=== PATIENT | male | born 1925 | race Caucasian/White ===

== ENCOUNTER 2016-08-22 05:25 | Observation (INO) | payer OTHER ==
[~2016-08-22] VITALS: Ht 180.3 cm; Wt 85.0 kg
[2016-08-22] VITALS (12 sets, daily range): BP systolic 111–142; BP diastolic 71–79; PULSE 71–120; RESP 18–28; TEMP 96.8–98.1; O2SAT 92–98
[~2016-08-22 05:25] MED LIST: AZIT250T3 PO
[2016-08-22] MEDS ORDERED: SODIUM CHLORIDE 0.9% FLUSH 5 ML FLUSH IVF PRN (06:00)
[2016-08-22] MEDS ORDERED: methylPREDNISolone SOD SUCC 125 MG/2 ML VIAL IVP ONE (06:00)
[2016-08-22] MEDS: RESP: ALBUTEROL 2.5 MG/IPRATROPIUM 0.5 MG NEB (SCH) INH ×2 (06:03→06:04)
--- NOTE | 2016-08-22 06:28 | RADRPT ---
EXAM DATE/TIME: 08/22/2016 06:11 [place] COMPARISON: CHEST SINGLE AP, July 16, 2016, 22:13. INDICATIONS : Shortness of breath. MEDICAL HISTORY : Chronic obstructive pulmonary disease. Hiatal hernia. SURGICAL HISTORY : None. ENCOUNTER: Initial ACUITY: 1 day PAIN SCORE: 0/10 LOCATION: Bilateral chest FINDINGS: A single view of the chest demonstrates minimal left basilar subsegmental atelectasis. Lungs are hype rinflated. The cardiomediastinal contours are unremarkable. Osseous structures are intact. CONCLUSION: 1. Minimal left basilar subsegmental atelectasis. 2. Hyperinflation which can be seen with COPD. Sherif Simmons MD on August 22, 2016 at 6:26 Board Certified Radiologist. This report was verified electronically.
[2016-08-22 06:33] LABS: AUTOMATED NEUTROPHIL # 2.9 TH/MM3 (1.8-7.7); BASOPHIL # 0.1 TH/MM3 (0-0.2); BASOPHIL % 0.6 % (0.0-2.0); EOSINOPHIL # 0.3 TH/MM3 (0-0.4); EOSINOPHIL % 2.6 % (0.0-4.0); HEMATOCRIT 40.2 % (39.0-51.0); LYMPH % 62.3 % (9.0-44.0); LYMPHOCYTE # 6.5 TH/MM3 (1.0-4.8); MEAN CELL VOLUME 79.3 FL (80.0-100.0); MEAN CORPUSCULAR HGB CONC 32.8 % (32.0-36.0); MONO % 6.8 % (0.0-8.0); NEUT % 27.7 % (16.0-70.0); PLATELET COUNT 233 TH/MM3 (150-450); RED BLOOD COUNT 5.07 MIL/MM3 (4.50-5.90); WHITE BLOOD COUNT 10.4 TH/MM3 (4.0-11.0)
--- NOTE | 2016-08-22 06:41 | PD ---
HPI Chief Complaint: Respiratory Distress Time Seen by Provider: 05:35 Travel History International Travel<30 days: No Contact w/Intl Traveler<30days: No Traveled to known affect area: No History of Present Illness HPI The patient is 89 years old. He uses oxygen at home 24 7. He suffers with COPD. He has been coughing quite a bit lately occasionally with sputum. He denies fever. He reports using his nebulizers at home quite frequently as often as every 2-3 hours. Currently he is on oral prednisone. The nebulizers have been beneficial at home. He has had no chest pain. PFSH Past Medical History Hx Anticoagulant Therapy: Yes Arthritis: Yes (hands) Asthma: No Blood Disorders: No Anxiety: No Depression: Yes Heart Rhythm Problems: No Cancer: Yes (Skin cancer) Cardiovascular Problems: Yes High Cholesterol: Yes Chemotherapy: No Chest Pain: Yes Congestive Heart Failure: No COPD: Yes Cerebrovascular Accident: No Coronary Artery Disease: No Diabetes: No Diminished Hearing: No Endocrine: No Gastrointestinal Disorders: Yes (Hernia) GERD: No Genitourinary: No Headaches: Yes Hiatal Hernia: Yes Heparin Induced Thrombocytopen: No Hypertension: Yes Immune Disorder: No Implanted Vascular Access Dvce: Yes Kidney Stones: Yes (as a kid) Musculoskeletal: Yes (Right Knee surgeries ) Neurologic: No Psychiatric: Yes Reproductive: No Respiratory: Yes (copd) Immunizations Current: Yes Migraines: No Radiation Therapy: No Renal Failure: No Seizures: No Sickle Cell Disease: No Sleep Apnea: No Thyroid Disease: No Ulcer: Yes Tetanus Vaccination: < 5 Years Influenza Vaccination: No Past Surgical History Abdominal Surgery: Yes (removal of cyst) AICD: No Body Medical Devices: Penile implant Cardiac Surgery: No Ear Surgery: No Endocrine Surgery: No Eye Surgery: Yes Genitourinary Surgery: No Gynecologic Surgery: No Insulin Pump: No Joint Replacement: No Neurologic Surgery: No Oral Surgery: Yes Pacemaker: No Thoracic Surgery: No Tonsillectomy: Yes Other Surgery: Yes (Right knee, Penile implant) Social History Alcohol Use: Yes (1 BEER DAILY) Tobacco Use: No Substance Use: No Allergies-Medications (Allergen,Severity, Reaction): Coded Allergies: Bee Sting (Verified Allergy, Severe, Swelling, 08/22/16) Sulfa (Verified Allergy, Intermediate, HIVES, 08/22/16) Reported Meds & Prescriptions Reported Meds & Active Scripts Active Review of Systems Except as stated in HPI: all other systems reviewed are Neg Physical Exam Narrative GENERAL: 89-year-old male pleasant white dyspnea SKIN: Warm and dry. HEAD: Atraumatic. Normocephalic. EYES: Pupils equal and round. No scleral icterus. No injection or drainage. ENT: No nasal bleeding or discharge. Mucous membranes pink and moist. NECK: Trachea midline. No JVD. CARDIOVASCULAR: Regular rhythm. Tachycardia. RESPIRATORY: Tachypnea. Wheezing present bilaterally. GASTROINTESTINAL: Abdomen soft, non-tender, nondistended. Hepatic and splenic margins not palpable. MUSCULOSKELETAL: No obvious deformities. No clubbing. No cyanosis. No edema. NEUROLOGICAL: Awake and alert. No obvious cranial nerve deficits. Motor grossly within normal limits. Normal speech. PSYCHIATRIC: Appropriate mood and affect; insight and judgment normal. Data Data Last Documented VS Vital Signs Date Time Temp Pulse Resp B/P Pulse Ox O2 Delivery O2 Flow Rate FiO2 08/22/16 06:23 100 26 98 Nasal Cannula 3 08/22/16 05:34 98.1 139/79 Orders Electrocardiogram (08/22/16 ) Complete Blood Count With Diff (08/22/16 05:57) Basic Metabolic Panel (Bmp) (08/22/16 05:57) Iv Access Insert/Monitor (08/22/16 05:57) Electrocardiogram (08/22/16 05:57) Ecg Monitoring (08/22/16 05:57) Oximetry (08/22/16 05:57) Oxygen Administration (08/22/16 05:57) Chest, Single Ap (08/22/16 05:57) Sodium Chloride 0.9% Flush (Ns Flush) (08/22/16 06:00) Methylprednisolone So Succ Inj (Solumedr (08/22/16 06:00) Albuterol-Ipratropium Neb (Duoneb Neb) (08/22/16 06:00) Admit Order (Ed Use Only) (08/22/16 06:57) Methylprednisolone So Succ Inj (Solumedr (08/22/16 12:00) Guaifenesin Er (Mucinex Er) (08/22/16 09:00) Levofloxacin 750 Mg Premix Inj (Levaquin (08/22/16 07:00) Budeson-Formot 160-4.5 Mg Inh (Symbicort (08/22/16 09:00) Albuterol-Ipratropium Neb (Duoneb Neb) (08/22/16 08:00) Albuterol-Ipratropium Neb (Duoneb Neb) (08/22/16 07:00) Place In Observation (08/22/16 ) Vital Signs (Adult) Q4H (08/22/16 06:57) Sodium Chloride 0.9% Flush (Ns Flush) (08/22/16 07:00) Sodium Chloride 0.9% Flush (Ns Flush) (08/22/16 09:00) Activity Oob Ad Allegra (08/22/16 06:57) ^ Medical Billing Coordinator / Telemetry .CONTINUOUS (08/22/16 06:57) Diet Regular Basic (08/22/16 Breakfast) Ondansetron Inj (Zofran Inj) (08/22/16 07:00) Bisacodyl Supp (Dulcolax Supp) (08/22/16 07:00) Comprehensive Metabolic Panel (08/23/16 06:00) Complete Blood Count With Diff (08/23/16 06:00) Scd Bilateral/Knee High MAI.BID (08/22/16 06:57) Kade Bilateral/Knee High MAI.QSHIFT (08/22/16 06:57) Acetaminophen (Tylenol) (08/22/16 07:00) Labs Laboratory Tests Test 08/22/16 06:05 White Blood Count 10.4 TH/MM3 Red Blood Count 5.07 MIL/MM3 Hemoglobin 13.2 GM/DL Hematocrit 40.2 % Mean Corpuscular Volume 79.3 FL Mean Corpuscular Hemoglobin 26.0 PG Mean Corpuscular Hemoglobin 32.8 % Concent Red Cell Distribution Width 16.0 % Platelet Count 233 TH/MM3 Mean Platelet Volume 8.4 FL Neutrophils (%) (Auto) 27.7 % Lymphocytes (%) (Auto) 62.3 % Monocytes (%) (Auto) 6.8 % Eosinophils (%) (Auto) 2.6 % Basophils (%) (Auto) 0.6 % Neutrophils # (Auto) 2.9 TH/MM3 Lymphocytes # (Auto) 6.5 TH/MM3 Monocytes # (Auto) 0.7 TH/MM3 Eosinophils # (Auto) 0.3 TH/MM3 Basophils # (Auto) 0.1 TH/MM3 CBC Comment AUTO DIFF Sodium Level 142 MEQ/L Potassium Level 4.1 MEQ/L Chloride Level 105 MEQ/L Carbon Dioxide Level 29.4 MEQ/L Anion Gap 8 MEQ/L Blood Urea Nitrogen 18 MG/DL Creatinine 1.06 MG/DL Estimat Glomerular Filtration 66 ML/MIN Rate Random Glucose 106 MG/DL Calcium Level 8.5 MG/DL MDM Medical Decision Making Medical Screen Exam Complete: Yes Emergency Medical Condition: Yes Medical Record Reviewed: Yes Differential Diagnosis COPD exacerbation, pneumonia, anemia, kidney injury, hypoxia Narrative Course Patient has received 3 rounds of nebulized breathing treatments. He reports mild improvement. Pt will be admitted for oxygen and breathing treatments PRN. D /w Dr Gamez. CBC & BMP Diagram 08/22/16 06:05 CXR: ? Left base atelectasis Diagnosis Primary Impression: COPD (chronic obstructive pulmonary disease) Qualified Code: J44.9 - Chronic obstructive pulmonary disease, unspecified COPD type Additional Impression: Acute on chronic respiratory failure Qualified Code: J96.21 - Acute on chronic respiratory failure with hypoxia Admitting Information Admitting Physician Requests: Observation Jac Alcazar MD Aug 22, 2016 06:41
[2016-08-22 06:45] LABS: HEMO FLAGS AUTO DIFF
[2016-08-22 06:58] LABS: BICARBONATE 29.4 MEQ/L (21.0-32.0); POTASSIUM 4.1 MEQ/L (3.5-5.1)
[2016-08-22] MEDS ORDERED: RESP: ALBUTEROL 2.5 MG/IPRATROPIUM 0.5 MG NEB (PRN) NEB (07:00)
[2016-08-22] MEDS ORDERED: ACETAMINOPHEN 325 MG TAB PO PRN (07:00)
[2016-08-22] MEDS ORDERED: BISACODYL 10 MG SUPP PR PRN (07:00)
[2016-08-22] MEDS ORDERED: SODIUM CHLORIDE 0.9% FLUSH 5 ML FLUSH FLUSH PRN (07:00)
[2016-08-22] MEDS ORDERED: ONDANSETRON HCL 4 MG/2 ML VIAL IVP PRN (07:00)
[2016-08-22 07:38] LABS: NEUTROPHIL # MANUAL DIFF 3.2 TH/MM3 (1.8-7.7); POLYS (SEG NEUTROPHILS) 31 % (16-70); WBC DIFF SAMPLE 100
[2016-08-22 07:40] LABS: PLATELET ESTIMATE SMEAR NORMAL (NORMAL); PLATELET MORPHOLOGY NORMAL (NORMAL)
[2016-08-22 07:41] LABS: SCAN/DIFF FINAL DIFF MANUAL
[2016-08-22] MEDS: LEVOFLOXACIN 750 MG PREMIX INJ 150 ML IV SCH (07:42)
[2016-08-22] MEDS: RESP: ALBUTEROL 2.5 MG/IPRATROPIUM 0.5 MG NEB (SCH) NEB ×4 (07:49→19:47)
[2016-08-22] MEDS: SODIUM CHLORIDE 0.9% FLUSH 5 ML FLUSH FLUSH SCH ×2 (10:03→20:35)
[2016-08-22] MEDS: guaiFENesin E.R. 600 MG TAB PO SCH ×2 (10:04→20:35)
[2016-08-22] MEDS: BUDESONIDE-FORMOTEROL 160/4.5 MCG INHALER INH SCH ×2 (10:04→20:35)
--- NOTE | 2016-08-22 11:18 | HHI.HP ---
[facility] Service [facility] Primary Care Physician [facility] Admission Diagnosis COPD Exacerbation, Hypoxia Diagnoses: Chief Complaint: shortness of breath Travel History International Travel<30 Days: No Contact w/Intl Traveler <30 Da: No Traveled to Known Affected Are: No History of Present Illness 89-year-old male with history of COPD, chronic respiratory failure, O2 dependent on 2L NC, HTN, HLD, presents after acute onset of shortness of breath this morning around 3 AM. Patient states he has been in his normal state of health, has a chronic cough occasionally productive of white sputum which is normal for him. Denies any fevers or chills. He states he woke up early this morning at 3 AM and was not able to breathe or catch his breath. Denies any chest pain. He states he has been taking prednisone daily for "a long time". He has been using nebulizers at home frequently. Denies any recent travel, leg pain or swelling. Since his arrival to the ER, he has been given duonebs, IV solu-medrol 125mg, and IV Levaquin. He states he feels better but not ready to go home. Review of Systems Constitutional: DENIES: Diaphoretic episodes, Fever, Chills, Dizziness Endocrine: DENIES: Polydipsia, Polyuria, Polyphagia Eyes: DENIES: Eye pain, Vision loss, Double Vision Ears, nose, mouth, throat: DENIES: Throat pain, Hoarseness, Running Nose, Odynophagia Respiratory: COMPLAINS OF: Cough, Wheezing, Sputum production, Shortness of breath Cardiovascular: DENIES: Chest pain, Dyspnea on Exertion, Lower Extremity Edema Gastrointestinal: DENIES: Abdominal pain, Diarrhea, Nausea, Vomiting Genitourinary: DENIES: Urinary frequency, Urgency, Dysuria Musculoskeletal: DENIES: Back pain, Neck pain Integumentary: DENIES: Pruritus, Rash Hematologic/lymphatic: DENIES: Bruising, Lymphadenopathy Immunologic/allergic: DENIES: Eczema, Urticaria Neurologic: DENIES: Abnormal gait, Headache, Localized weakness Psychiatric: DENIES: Anxiety, Depression Past Family Social History Past Medical History COPD, O2 dependent on 2L NC Anxiety HLD HTN Umbilical Hernia Diastasis Recti Past Surgical History Penile Implant Tonsillectomy Right knee surgery Abdominal cyst removal Reported Medications Asked RN to update med list Allergies: Coded Allergies: Bee Sting (Verified Allergy, Severe, Swelling, 08/22/16) Sulfa (Verified Allergy, Intermediate, HIVES, 08/22/16) Active Ordered Medications Current Medications Medications (Trade) Dose Ordered Sig/Jeison Route Start Time Stop Time Status Last Admin (NS Flush) 2 ml UNSCH PRN IVF 08/22/16 06:00 (SoluMEDROL INJ) 40 mg Q6HR IV PUSH 08/22/16 12:00 Guaifenesin 600 mg 600 mg BID PO 08/22/16 09:00 08/22/16 10:04 (Levaquin 750 Mg Premix Inj) 150 ml @ 100 mls/hr Q24H IV 08/22/16 07:00 08/22/16 07:42 (Symbicort 160-4.5 Inh) 2 puff Q12HR INH 08/22/16 09:00 08/22/16 10:04 (NS Flush) 2 ml UNSCH PRN FLUSH 08/22/16 07:00 (NS Flush) 2 ml BID FLUSH 08/22/16 09:00 08/22/16 10:03 (Zofran Inj) 4 mg Q6H PRN IVP 08/22/16 07:00 (Dulcolax Supp) 10 mg DAILY PRN DE 08/22/16 07:00 (Tylenol) 650 mg Q6H PRN PO 08/22/16 07:00 Family History Reviewed with the patient, denies any significant family history Social History Smoke tobacco 1 PPD from age 18 to around age 61 (quit 30 years ago) Very rare alcohol use, maybe 1 beer every few weeks Denies any illicit drug use Joao is his caregiver, lives with 3 other people in the home Physical Exam Vital Signs Vital Signs Date Time Temp Pulse Resp B/P Pulse Ox O2 Delivery O2 Flow Rate FiO2 08/22/16 06:23 100 26 98 Nasal Cannula 3 08/22/16 06:14 94 Nasal Cannula 3 08/22/16 06:14 28 08/22/16 05:37 101 28 93 Nasal Cannula 3 08/22/16 05:34 98.1 101 28 139/79 92 Physical Exam GENERAL: Well-nourished, well-developed pleasant elderly male patient in [facility]. SKIN: Warm and dry. No rash. HEAD: Normocephalic. Atraumatic. EYES: Pupils equal and round. No scleral icterus. No injection or drainage. ENT: No nasal bleeding or discharge. Mucous membranes pink and moist. NECK: Supple. Trachea midline. CARDIOVASCULAR: Regular rate and rhythm. S1, S2 noted. No murmur appreciated. RESPIRATORY: No accessory muscle use. Dry crackles at bilateral bases, otherwise clear to auscultation. Breath sounds equal bilaterally. GASTROINTESTINAL: Abdomen soft, non-tender, nondistended. Normoactive bowel sounds x4. +Diastasis recti. Small umbilical hernia, reducible. MUSCULOSKELETAL: No obvious deformities. Extremities without clubbing, cyanosis , or edema. NEUROLOGICAL: Awake and alert. No obvious cranial nerve deficits. Motor grossly within normal limits. Normal speech. PSYCHIATRIC: Appropriate mood and affect; insight and judgment normal. Laboratory Laboratory Tests Test 08/22/16 06:05 White Blood Count 10.4 Red Blood Count 5.07 Hemoglobin 13.2 Hematocrit 40.2 Mean Corpuscular Volume 79.3 Mean Corpuscular Hemoglobin 26.0 Mean Corpuscular Hemoglobin 32.8 Concent Red Cell Distribution Width 16.0 Platelet Count 233 Mean Platelet Volume 8.4 Neutrophils (%) (Auto) 27.7 Lymphocytes (%) (Auto) 62.3 Monocytes (%) (Auto) 6.8 Eosinophils (%) (Auto) 2.6 Basophils (%) (Auto) 0.6 Neutrophils # (Auto) 2.9 Lymphocytes # (Auto) 6.5 Monocytes # (Auto) 0.7 Eosinophils # (Auto) 0.3 Basophils # (Auto) 0.1 CBC Comment AUTO DIFF Differential Total Cells 100 Counted Neutrophils % (Manual) 31 Lymphocytes % 68 Monocytes % 1 Neutrophils # (Manual) 3.2 Differential Comment FINAL DIFF MANUAL Platelet Estimate NORMAL Platelet Morphology Comment NORMAL Red Cell Morphology Comment NORMAL Sodium Level 142 Potassium Level 4.1 Chloride Level 105 Carbon Dioxide Level 29.4 Anion Gap 8 Blood Urea Nitrogen 18 Creatinine 1.06 Estimat Glomerular Filtration 66 Rate Random Glucose 106 Calcium Level 8.5 Result Diagram: 08/22/16 0605 08/22/16604 Imaging Last Impressions Chest X-Ray 08/22/16 0557 Signed Impressions: Service Date/Time: Monday, August 22, 2016 06:11 - CONCLUSION: 1. Minimal left basilar subsegmental atelectasis. 2. Hyperinflation which can be seen with COPD. Sherif Simmons MD Assessment and Plan Problem List: (1) COPD exacerbation ICD Code: J44.1 Status: Acute (2) HTN (hypertension) ICD Code: I10 Status: Chronic (3) Hyperlipidemia ICD Code: E78.5 Status: Chronic Assessment and Plan 89-year-old male with history of COPD, chronic respiratory failure, O2 dependent on 2L NC, HTN, HLD, presents after acute onset of shortness of breath this morning around 3 AM. Acute on Chronic Respiratory Failure secondary to COPD Exacerbation: S/p duonebs , IV solu-medrol 125mg, and IV Levaquin in the ER with some improvement. CXR images reviewed by me, no acute findings. Continue on IV Solumedrol 40mg q6h, duonebs q4h jeison and q2h prn, Symbicort bid, IV Levaquin, Mucinex bid. Add acapella. Continue O2, titrate to maintain O2 sat >92%. HTN/HLD: med list not updated, asked RN to update med list then will restart home medications. DVT Prophylaxis: teds/SCDs Code Status DNR Discussed Condition With Patient Written by Esther Bucsh, acting as scribe for Dr. Hernandez on 08/22/16 at 09: 20. The documentation accurately reflects the work performed [id number] by me, Dr. Hernandez on 08/22/16 at 09:20. Esther Busch PA-C Aug 22, 2016 11:18 Gomez Hernandez MD Aug 22, 2016 22:22
[2016-08-22] MEDS: methylPREDNISolone SOD SUCC 40 MG/1 ML VIAL IV PUSH SCH ×2 (11:29→17:30)
--- NOTE | 2016-08-22 13:38 | EKG ---
Date Performed: 08/22/2016 Time Performed: 05:42:52 PTAGE: 89 years EKG: SINUS TACHYCARDIA INCOMPLETE RIGHT BUNDLE BRANCH BLOCK Since previous tracing, no significa nt change noted ABNORMAL RHYTHM ECG PREVIOUS TRACING : 05/16/2016 22.20 DOCTOR: Magi Hernández Interpretating Date/Time 08/22/2016 13:37:40
[2016-08-23] MEDS: methylPREDNISolone SOD SUCC 40 MG/1 ML VIAL IV PUSH SCH ×2 (00:15→06:23)
[2016-08-23 00:44] VITALS: BP 148/73; PULSE 103; RESP 18; TEMP 98.7; O2SAT 95
[2016-08-23 04:19] VITALS: BP 133/89; PULSE 113; RESP 18; O2SAT 95
[2016-08-23 05:37] LABS: ALT (GPT) 19 U/L (12-78); ANION GAP 8 MEQ/L (5-15); AST (GOT) 7 U/L (15-37); BLOOD UREA NITROGEN 26 MG/DL (7-18); CHLORIDE 104 MEQ/L (98-107); GLOMERULAR FILTRATION RATE 63 ML/MIN (>89); POTASSIUM 4.5 MEQ/L (3.5-5.1); SODIUM (NA) 140 MEQ/L (136-145)
[2016-08-23 05:39] LABS: ALKALINE PHOSPHATASE 72 U/L (45-117); TOTAL BILIRUBIN ADULT 0.2 MG/DL (0.2-1.0)
[2016-08-23 06:18] LABS: AUTOMATED NEUTROPHIL # 5.7 TH/MM3 (1.8-7.7); HEMATOCRIT 35.8 % (39.0-51.0); HEMO FLAGS DIFF FINAL; LYMPH % 36.2 % (9.0-44.0); LYMPHOCYTE # 3.4 TH/MM3 (1.0-4.8); MEAN CELL VOLUME 78.5 FL (80.0-100.0); MEAN CORPUSCULAR HEMOGLOBIN 26.2 PG (27.0-34.0); MEAN CORPUSCULAR HGB CONC 33.4 % (32.0-36.0); MONO % 2.1 % (0.0-8.0); NEUT % 61.7 % (16.0-70.0); PLATELET COUNT 208 TH/MM3 (150-450); RED BLOOD COUNT 4.56 MIL/MM3 (4.50-5.90); RED CELL DISTRIBUTION WIDTH 15.5 % (11.6-17.2); WHITE BLOOD COUNT 9.3 TH/MM3 (4.0-11.0)
[2016-08-23] MEDS: LEVOFLOXACIN 750 MG PREMIX INJ 150 ML IV SCH (06:27)
[2016-08-23 07:19] VITALS: BP 137/86; PULSE 110; RESP 24; TEMP 97.5; O2SAT 98
[2016-08-23] MEDS: RESP: ALBUTEROL 2.5 MG/IPRATROPIUM 0.5 MG NEB (SCH) NEB ×2 (07:59→11:15)
--- NOTE | 2016-08-23 08:24 | HHI.PR ---
Subjective Remarks Follow up for COPD exacerbation. The patient reports feeling much better today. Denies any current shortness of breath. He has been ambulating the hallways without difficulty. Still with cough productive of white sputum. Denies fevers or chills. Discussed with senior investment analyst Joao over the phone, plan for likely discharge today. The patient feels ready to go home. He has 2 nebulizer machines at home and oxygen. He denies running out of any medications recently. Objective Vitals Vital Signs Date Time Temp Pulse Resp B/P Pulse Ox O2 Delivery O2 Flow Rate FiO2 08/23/16 07:19 97.5 110 24 137/86 98 08/23/16 04:19 113 18 133/89 95 08/23/16 00:44 98.7 103 18 148/73 95 08/22/16 23:24 18 08/22/16 22:43 97.2 71 18 111/73 96 08/22/16 20:15 Nasal Cannula 2.00 08/22/16 20:03 110 08/22/16 19:47 92 08/22/16 19:39 96.8 120 18 137/73 94 08/22/16 19:15 96.8 120 18 137/73 94 08/22/16 16:14 98.1 118 130/78 08/22/16 16:14 93 Nasal Cannula 3.00 08/22/16 13:40 118 08/22/16 11:21 98.0 111 18 141/71 97 08/22/16 11:00 101 22 142/71 94 Nasal Cannula 3 I/O 08/22/16 08/22/16 08/22/16 08/23/16 08/23/16 08/23/16 07:00 15:00 23:00 07:00 15:00 23:00 Intake Total 240 ml Balance 240 ml Intake Oral 240 ml # Voids 3 1 Result Diagram: 08/23/165 08/23/165 Imaging Last Impressions Chest X-Ray 08/22/16 0557 Signed Impressions: Service Date/Time: Monday, August 22, 2016 06:11 - CONCLUSION: 1. Minimal left basilar subsegmental atelectasis. 2. Hyperinflation which can be seen with COPD. Sherif Simmons MD Objective Remarks GENERAL: Well-nourished, well-developed pleasant elderly male patient in [place]. Sitting upright on side of bed. SKIN: Warm and dry. No rash. HEAD: Normocephalic. Atraumatic. NECK: Supple. Trachea midline. CARDIOVASCULAR: Regular rate and rhythm. S1, S2 noted. No murmur appreciated. RESPIRATORY: No accessory muscle use. Clear to auscultation, no wheezing today. Breath sounds equal bilaterally. GASTROINTESTINAL: Abdomen soft, non-tender, nondistended. Normoactive bowel sounds x4. +Diastasis recti. Small umbilical hernia, reducible. MUSCULOSKELETAL: No obvious deformities. Extremities without clubbing, cyanosis , or edema. NEUROLOGICAL: Awake and alert. No obvious cranial nerve deficits. Motor grossly within normal limits. Normal speech. PSYCHIATRIC: Appropriate mood and affect; insight and judgment normal. Medications and IVs Current Medications Medications (Trade) Dose Ordered Sig/Jeison Route Start Time Stop Time Status Last Admin (NS Flush) 2 ml UNSCH PRN IVF 08/22/16 06:00 (SoluMEDROL INJ) 40 mg Q6HR IV PUSH 08/22/16 12:00 08/23/16 06:23 Guaifenesin 600 mg 600 mg BID PO 08/22/16 09:00 08/22/16 20:35 (Levaquin 750 Mg Premix Inj) 150 ml @ 100 mls/hr Q24H IV 08/22/16 07:00 08/23/16 06:27 (Symbicort 160-4.5 Inh) 2 puff Q12HR INH 08/22/16 09:00 08/22/16 20:35 (NS Flush) 2 ml UNSCH PRN FLUSH 08/22/16 07:00 (NS Flush) 2 ml BID FLUSH 08/22/16 09:00 08/22/16 20:35 (Zofran Inj) 4 mg Q6H PRN IVP 08/22/16 07:00 (Dulcolax Supp) 10 mg DAILY PRN DC 08/22/16 07:00 (Tylenol) 650 mg Q6H PRN PO 08/22/16 07:00 08/22/16 22:24 Urinary Catheter: No Vascular Central Line Catheter: No A/P Problem List: (1) COPD exacerbation ICD Code: J44.1 Status: Acute (2) HTN (hypertension) ICD Code: I10 Status: Chronic (3) Hyperlipidemia ICD Code: E78.5 Status: Chronic Assessment and Plan 89-year-old male with history of COPD, chronic respiratory failure, O2 dependent on 2L NC, HTN, HLD, presents after acute onset of shortness of breath this morning around 3 AM. Acute on Chronic Respiratory Failure secondary to COPD Exacerbation: S/p duonebs , IV solu-medrol 125mg, and IV Levaquin in the ER with some improvement. CXR images reviewed by me, no acute findings. Continue on IV Solumedrol 40mg q6h, duonebs q4h jeison and q2h prn, Symbicort bid, IV Levaquin, Mucinex bid. Added acapella. Continue O2, titrate to maintain O2 sat >92%. Much improved today. HTN/HLD: med list not updated, asked RN to update med list then will restart home medications. Anesthesiology Technologist Joao to bring list of home meds prior to discharge. DVT Prophylaxis: teds/SCDs Discharge Planning Discharge patient to home Condition on discharge: Improved Heart Healthy Diet as tolerated Ad Allegra activity Rx written: Prednisone taper, Levaquin, Symbicort, Mucinex [facility] Attending Statement The exam, history, and the medical decision-making described in the above note were completed with the assistance of the mid-level provider. I reviewed and agree with the findings presented. I attest that I had a [id number] encounter with the patient on the same day, and personally performed and documented my assessment and findings in the medical record.patient seen this morning prior to discharge. Patient says he feels well. Denies any chest pain. Says shortness of breath has resolved. Feels like going home. Steroid taper. Esther Busch PA-C Aug 23, 2016 08:24 Gomez Hernandez MD Aug 23, 2016 22:56
[2016-08-23] MEDS ORDERED: MUCI600T PO (08:26)
[2016-08-23] MEDS ORDERED: SYMB160A INH (08:26)
[2016-08-23] MEDS ORDERED: PRED20 PO (08:26)
--- NOTE | 2016-08-23 08:27 | HHI.DCPOC ---
Discharge Care Plan Diagnosis: (1) COPD exacerbation Your Health Problems Are: Cough Shortness of Breath Goals to Promote Your Health * To prevent worsening of your condition and complications * To maintain your health at the optimal level Directions to Meet Your Goals Take your medications as prescribed Follow your dietary instruction Follow activity as directed Keep your appointments as scheduled Take your immunizations and boosters as scheduled If your symptoms worsen call your PCP, if no PCP go to Urgent Care Center or Emergency Room Smoking is Dangerous to Your Health. Avoid second hand smoke Call the 24-hour hour crisis hotline for domestic abuse at Esther Busch PA-C Aug 23, 2016 08:27
[2016-08-23] MEDS: SODIUM CHLORIDE 0.9% FLUSH 5 ML FLUSH FLUSH SCH (09:00)
[2016-08-23] MEDS: guaiFENesin E.R. 600 MG TAB PO SCH (09:01)
[2016-08-23] MEDS: BUDESONIDE-FORMOTEROL 160/4.5 MCG INHALER INH SCH (09:01)
[2016-08-23] MEDS ORDERED: LEVA750T PO (09:39)
[2016-08-25] MEDS ORDERED: LEVOFLOXACIN 750 MG PREMIX INJ 150 ML IV SCH (06:00)
== END 2016-08-23 13:52 | disposition home or self-care (01) ==
LOC: NEPE 05:25 → NEDA 07:03 → NEPHCDU 11:15
PROVIDERS: ADMIT Hospitalist; ATTEND Internal Medicine
DX: J44.1 Chronic obstructive pulmonary disease with (acute) exacerbation (principal); J96.20 Acute and chronic respiratory failure, unspecified whether with hypoxia or hypercapnia; I10 Essential (primary) hypertension; E78.5 Hyperlipidemia, unspecified; Z99.81 Dependence on supplemental oxygen; Z87.891 Personal history of nicotine dependence; Z66 Do not resuscitate
CPT/HCPCS: 71010; 80048; 80053; 85007; 85025; 85027; 85379; 93005; 94640; 94664; 94667; 94668; 96374; 99285; G0378; J1956; J2920; J2930

== ENCOUNTER 2016-09-12 20:00 | Inpatient (IN) | payer OTHER ==
[~2016-09-12] VITALS: Ht 172.7 cm; Wt 82.0 kg
[~2016-09-12 20:00] MED LIST changes: -AZIT250T3 PO; +LEVA750T PO; +MUCI600T PO; +PRED20 PO; +SYMB160A INH
[2016-09-12 20:02] VITALS: BP 136/95; PULSE 119; RESP 28; TEMP 100.7; O2SAT 89
[2016-09-12] MEDS ORDERED: methylPREDNISolone SOD SUCC 125 MG/2 ML VIAL IVP ONE (20:15)
[2016-09-12 20:17] VITALS: O2SAT 87
[2016-09-12 20:18] VITALS: BP 149/77; PULSE 115; RESP 26; TEMP 99.5; O2SAT 87
--- NOTE | 2016-09-12 20:18 | PD ---
HPI Chief Complaint: COPD exacerbation Time Seen by Provider: 20:14 Travel History International Travel<30 days: No Contact w/Intl Traveler<30days: No History of Present Illness HPI Patient comes emergency Department complaining of shortness of breath ongoing since last night. Patient states this feels similar to his recent hospital stay when he was admitted with COPD exacerbation but not as bad as previous visit. Patient states he been using his breathing treatments last was around 4: 00 this afternoon with minimal improvement of symptoms. Patient also complaining increased edema is bilateral lower extremities. Patient reports taking water pill for this but has not been helping much. Denies any chest pain , fevers, nausea, vomiting or abdominal pain. Patient states he's had a productive cough with this. PFSH Past Medical History Hx Anticoagulant Therapy: Yes Arthritis: Yes (hands) Asthma: No Blood Disorders: No Anxiety: No Depression: Yes Heart Rhythm Problems: No Cancer: Yes (Skin cancer) Cardiovascular Problems: Yes High Cholesterol: Yes Chemotherapy: No Chest Pain: Yes Congestive Heart Failure: No COPD: Yes Cerebrovascular Accident: No Coronary Artery Disease: No Diabetes: No Diminished Hearing: No Endocrine: No Gastrointestinal Disorders: Yes (Hernia) GERD: No Genitourinary: No Headaches: Yes Hiatal Hernia: Yes Heparin Induced Thrombocytopen: No Hypertension: Yes Immune Disorder: No Implanted Vascular Access Dvce: Yes Kidney Stones: Yes (as a kid) Musculoskeletal: Yes (Right Knee surgeries ) Neurologic: No Psychiatric: Yes Reproductive: No Respiratory: Yes (copd) Immunizations Current: Yes Migraines: No Radiation Therapy: No Renal Failure: No Seizures: No Sickle Cell Disease: No Sleep Apnea: No Thyroid Disease: No Ulcer: Yes Past Surgical History Abdominal Surgery: Yes (removal of cyst) AICD: No Body Medical Devices: Penile implant Cardiac Surgery: No Ear Surgery: No Endocrine Surgery: No Eye Surgery: Yes Genitourinary Surgery: No Gynecologic Surgery: No Insulin Pump: No Joint Replacement: No Neurologic Surgery: No Oral Surgery: Yes Pacemaker: No Thoracic Surgery: No Tonsillectomy: Yes Other Surgery: Yes (Right knee, Penile implant) Social History Alcohol Use: Yes (1 BEER DAILY) Tobacco Use: No Substance Use: No Allergies-Medications (Allergen,Severity, Reaction): Coded Allergies: Bee Sting (Verified Allergy, Severe, Swelling, 08/22/16) Sulfa (Verified Allergy, Intermediate, HIVES, 08/22/16) Reported Meds & Prescriptions Reported Meds & Active Scripts Active Levaquin (Levofloxacin) 750 Mg Tab 750 Mg PO DAILY Prednisone 20 Mg Tab 20 Mg PO DIRECTED Take 40 MG twice daily x 3 days, then 40 MG once daily x 3 days, then 20 MG once daily x 3 days. Mucinex ER 12 HR (Guaifenesin) 600 Mg Yvrose 600 Mg PO BID Symbicort Inh (Budesonide/Formoterol Fumarate) 160-4.5 Mcg/Act Aero 2 Puff INH Q12HR Review of Systems Except as stated in HPI: all other systems reviewed are Neg Physical Exam Narrative GENERAL: Well-developed, overly nourished, in no acute distress, and non-ill appearing. SKIN: Warm and dry. Stage I pressure ulcer noted on the posterior aspect of the right ankle. HEAD: Atraumatic. Normocephalic. EYES: Pupils equal and round. EOMI. No scleral icterus. No injection or drainage. ENT: No nasal bleeding or discharge. Mucous membranes pink and moist. NECK: Trachea midline. Supple. No nuclear rigidity. CARDIOVASCULAR: Regular rate and rhythm. No murmur appreciated. RESPIRATORY: Accessory muscle use. Tightness and wheezing noted throughout the chest. Breath sounds equal bilaterally. GASTROINTESTINAL: Abdomen soft, non-tender, nondistended. Hepatic and splenic margins not palpable. No pulsatile mass. MUSCULOSKELETAL: No obvious deformities. No clubbing. No cyanosis. 3+ pitting edema bilateral lower extremities. Full range of motion. NEUROLOGICAL: Awake and alert. No obvious cranial nerve deficits. Motor grossly within normal limits. Normal speech. PSYCHIATRIC: Appropriate mood and affect; insight and judgment normal. Data Data Last Documented VS Vital Signs Date Time Temp Pulse Resp B/P Pulse Ox O2 Delivery O2 Flow Rate FiO2 09/12/16 20:35 98 35 09/12/16 20:18 99.5 115 26 149/77 09/12/16 20:17 Nasal Cannula 2 Orders Complete Blood Count With Diff (09/12/16 20:09) Comprehensive Metabolic Panel (09/12/16 20:09) B-Type Natriuretic Peptide (09/12/16 20:09) Act Partial Throm Time (Ptt) (09/12/16 20:09) Prothrombin Time / Inr (Pt) (09/12/16 20:09) Magnesium (Mg) (09/12/16 20:09) Ckmb (Isoenzyme) Profile (09/12/16 20:09) Troponin I (09/12/16 20:09) Iv Access Insert/Monitor (09/12/16 20:09) Electrocardiogram (09/12/16 20:09) Ecg Monitoring (09/12/16 20:09) Oximetry (09/12/16 20:09) Oxygen Administration (09/12/16 20:09) Chest, Single Ap (09/12/16 20:09) Sodium Chloride 0.9% Flush (Ns Flush) (09/12/16 20:15) Methylprednisolone So Succ Inj (Solumedr (09/12/16 20:15) Albuterol-Ipratropium Neb (Duoneb Neb) (09/12/16 20:15) Lactic Acid Sepsis Protocol (09/12/16 20:18) Blood Culture (09/12/16 20:18) Sodium Chloride 0.9% Flush (Ns Flush) (09/12/16 20:30) Piperacil-Tazo 4.5 Gm Premix (Zosyn 4.5 (09/12/16 20:30) Azithromycin Inj (Zithromax Inj) (09/12/16 20:30) Us Testicles W Doppler (09/12/16 ) Arterial Blood Gas (Abg) (09/12/16 20:36) Resp Bipap / Cpap Non Invas Vt (09/12/16 20:36) Wound Culture And Gram Stain (09/12/16 20:38) Vancomycin Inj (Vancomycin Inj) (09/12/16 22:04) Sodium Chlor 0.9% 1000 Ml Inj (Ns 1000 M (09/12/16 22:15) Acetaminophen (Tylenol) (09/12/16 22:15) Admit Order (Ed Use Only) (09/12/16 22:28) Labs Laboratory Tests Test 09/12/16 09/12/16 09/12/16 20:20 20:30 21:50 White Blood Count 10.4 TH/MM3 Red Blood Count 4.44 MIL/MM3 Hemoglobin 11.5 GM/DL Hematocrit 35.4 % Mean Corpuscular Volume 79.9 FL Mean Corpuscular Hemoglobin 25.9 PG Mean Corpuscular Hemoglobin 32.4 % Concent Red Cell Distribution Width 16.2 % Platelet Count 210 TH/MM3 Mean Platelet Volume 8.2 FL Neutrophils (%) (Auto) 46.2 % Lymphocytes (%) (Auto) 39.2 % Monocytes (%) (Auto) 11.7 % Eosinophils (%) (Auto) 2.5 % Basophils (%) (Auto) 0.4 % Neutrophils # (Auto) 4.8 TH/MM3 Lymphocytes # (Auto) 4.1 TH/MM3 Monocytes # (Auto) 1.2 TH/MM3 Eosinophils # (Auto) 0.3 TH/MM3 Basophils # (Auto) 0.0 TH/MM3 CBC Comment DIFF FINAL Differential Comment Prothrombin Time 10.6 SEC Prothromb Time International 1.0 RATIO Ratio Activated Partial 28.6 SEC Thromboplast Time Sodium Level 140 MEQ/L Potassium Level 4.5 MEQ/L Chloride Level 102 MEQ/L Carbon Dioxide Level 31.0 MEQ/L Anion Gap 7 MEQ/L Blood Urea Nitrogen 16 MG/DL Creatinine 1.13 MG/DL Estimat Glomerular Filtration 61 ML/MIN Rate Random Glucose 92 MG/DL Calcium Level 8.3 MG/DL Magnesium Level 2.0 MG/DL Total Bilirubin 0.3 MG/DL Aspartate Amino Transf 12 U/L (AST/SGOT) Alanine Aminotransferase 18 U/L (ALT/SGPT) Alkaline Phosphatase 79 U/L Total Creatine Kinase 65 U/L Troponin I 0.02 NG/ML B-Type Natriuretic Peptide 30 PG/ML Total Protein 6.4 GM/DL Albumin 3.0 GM/DL Lactic Acid Level 0.7 mmol/L Blood Gas Puncture Site RT RADIAL Blood Gas Patient Temperature 98.6 Blood Gas HCO3 27 mmol/L Blood Gas Base Excess 2.5 mmol/L Blood Gas Oxygen Saturation 92 % Arterial Blood pH 7.37 Arterial Blood Partial 49 mmHg Pressure CO2 Arterial Blood Partial 77 mmHG Pressure O2 Arterial Blood Oxygen Content 14.2 Vol % Arterial Blood 1.9 % Carboxyhemoglobin Arterial Blood Methemoglobin 2.0 % Blood Gas Hemoglobin 10.9 G/DL Oxygen Delivery Device BIPAP Blood Gas Ventilator Setting IPAP=12 EPAP=6 Blood Gas Inspired Oxygen 35 % MDM Medical Decision Making Medical Screen Exam Complete: Yes Emergency Medical Condition: Yes Interpretation(s) EKG reviewed by Dr. Alcazar. Shows sinus tachycardia with a ventricular rate of 111. No STEMI. Differential Diagnosis COPD exacerbation, CHF exacerbation, pneumonia, other Narrative Course Patient seen and examined. Initial laboratory and radiological studies were ordered. Discussed patient with Dr. Alcazar who saw evaluated the patient and placed additional orders. Recommend having patient admitted for additional treatment. Discussed all findings and plan care with patient, who is agreeable to admission. Sepsis Criteria SIRS Criteria (2 or more): Temp > 100.9 or < 96.8, Heart rate over 90, RR > 20 or PaCO2 < 32 Sepsis Criteria (SIRS+source): Infect source susp/known Criteria Outcome: Meets sepsis criteria Physician Communication Physician Communication [phone] Gamez, who is agreeable to admit the patient. Diagnosis Primary Impression: Sepsis Qualified Code: A41.9 - Sepsis, due to unspecified organism Additional Impressions: Cellulitis of scrotum COPD exacerbation Bilateral lower extremity edema Condition: Stable Jose Oliva Sep 12, 2016 20:18
[2016-09-12] MEDS ORDERED: SODIUM CHLORIDE 0.9% FLUSH 5 ML FLUSH IVF PRN (20:30)
[2016-09-12] MEDS ORDERED: AZITHROMYCIN INJ 500 MG in SODIUM CHLOR 0.9% 250 ML INJ 250 ML IV ONE (20:30)
[2016-09-12] MEDS ORDERED: PIPERACIL-TAZO 4.5 GM PREMIX 100 ML IV ONE (20:30)
[2016-09-12 20:35] VITALS: O2SAT 98
[2016-09-12 20:40] LABS: AUTOMATED NEUTROPHIL # 4.8 TH/MM3 (1.8-7.7); BASOPHIL % 0.4 % (0.0-2.0); EOSINOPHIL # 0.3 TH/MM3 (0-0.4); EOSINOPHIL % 2.5 % (0.0-4.0); HEMATOCRIT 35.4 % (39.0-51.0); HEMO FLAGS DIFF FINAL; LYMPH % 39.2 % (9.0-44.0); LYMPHOCYTE # 4.1 TH/MM3 (1.0-4.8); MEAN CELL VOLUME 79.9 FL (80.0-100.0); MEAN CORPUSCULAR HEMOGLOBIN 25.9 PG (27.0-34.0); MEAN CORPUSCULAR HGB CONC 32.4 % (32.0-36.0); MONO % 11.7 % (0.0-8.0); NEUT % 46.2 % (16.0-70.0); PLATELET COUNT 210 TH/MM3 (150-450); RED BLOOD COUNT 4.44 MIL/MM3 (4.50-5.90); RED CELL DISTRIBUTION WIDTH 16.2 % (11.6-17.2); WHITE BLOOD COUNT 10.4 TH/MM3 (4.0-11.0)
[2016-09-12 20:51] LABS: APTT (PATIENT) 28.6 SEC (24.3-30.1); PROTHROMBIN TIME - PATIENT 10.6 SEC (9.8-11.6)
--- NOTE | 2016-09-12 20:59 | RADRPT ---
EXAM DATE/TIME: 09/12/2016 20:08 [facility] COMPARISON: CHEST SINGLE AP, August 22, 2016, 6:11. INDICATIONS : Short of breath. MEDICAL HISTORY : None. SURGICAL HISTORY : None. ENCOUNTER: Initial ACUITY: 1 day PAIN SCORE: 7/10 LOCATION: Bilateral chest FINDINGS: The heart size is normal. The lungs are grossly clear. A significant effusion is not clearly seen. There is a high-riding humeral head seen on the right side consistent with a rotator cuff abnormalit y. CONCLUSION: No acute abnormality is seen. Bayron Goldstein MD on September 12, 2016 at 20:56 Board Certified Radiologist. This report was verified electronically.
[2016-09-12] MEDS: RESP: ALBUTEROL 2.5 MG/IPRATROPIUM 0.5 MG NEB (SCH) INH ×2 (21:00→21:01)
[2016-09-12 21:03] LABS: ANION GAP 7 MEQ/L (5-15); AST (GOT) 12 U/L (15-37); BLOOD UREA NITROGEN 16 MG/DL (7-18); CHLORIDE 102 MEQ/L (98-107); GLOMERULAR FILTRATION RATE 61 ML/MIN (>89); POTASSIUM 4.5 MEQ/L (3.5-5.1); SODIUM (NA) 140 MEQ/L (136-145)
[2016-09-12] MEDS: SODIUM CHLORIDE 0.9% FLUSH 5 ML FLUSH IVF PRN (21:04)
[2016-09-12 21:08] LABS: ALKALINE PHOSPHATASE 79 U/L (45-117); ALT (GPT) 18 U/L (12-78); TOTAL BILIRUBIN ADULT 0.3 MG/DL (0.2-1.0)
[2016-09-12 21:19] LABS: CREATINE KINASE 65 U/L (39-308)
--- NOTE | 2016-09-12 21:50 | RADRPT ---
EXAM DATE/TIME: 09/12/2016 20:51 [facility] COMPARISON: No previous studies available for comparison. INDICATIONS : Tamera's. Testical pain. MEDICAL HISTORY : Hypertension. Hypercholesterolemia. COPD. Emphysema. Dyspnea. Kidney stones. Liver disease. Ulcer on testicles. Hernia. SURGICAL HISTORY : Right knee surgery. Removal of abdominal cyst. Penile implant. ENCOUNTER: Initial ACUITY: 3 months PAIN SCORE: 7/10 LOCATION: Bilateral testicle. MEASUREMENTS: RIGHT TESTICLE: 2.6 x 2.6 x 1.7 cm LEFT TESTICLE: 2.1 x 2.4 x 1.5 cm FINDINGS: RIGHT TESTICLE: Homogeneous echotexture without intra or extratesticular mass. Blood flow is symmetric and within no rmal limits. There is a small hydrocele. No varicocele is present. There is a 1.0 x 1.0 x 0.9 cm cyst seen at the epididymal head.. LEFT TESTICLE: Homogeneous echotexture without intra or extratesticular mass. Blood flow is symmetric and within no rmal limits. There is a small hydrocele. No varicocele is present. Epididymis is within normal limit s. SCROTUM: The scrotal skin appears thickened. CONCLUSION: 1. The testicles appear normal. 2. 1 cm right epididymal head cyst. 3. Small hydroceles. 4. Thickening of the scrotal skin. Bayron Goldstein MD on September 12, 2016 at 21:45 Board Certified Radiologist. This report was verified electronically.
[2016-09-12 22:02] LABS: BLOOD GAS BASE EXCESS 2.5 mmol/L (-2-2); BLOOD GAS CARBOXYHEMOGLOBIN 1.9 % (0-4); BLOOD GAS HCO3 27 mmol/L (22-26); BLOOD GAS O2 HGB SATURATION 92 % (90-100); BLOOD GAS OXYGEN CONTENT 14.2 Vol % (12.0-20.0); BLOOD GAS PCO2 49 mmHg (38-42); BLOOD GAS PO2 77 mmHG (61-120); BLOOD GAS TOTAL HGB 10.9 G/DL (12.0-16.0); CRITICAL VALUE NO; DRAW SITE RT RADIAL; FIO2 35 %; NUMBER OF ARTERIAL PUNCTURES 1; OXYGEN DEVICE BIPAP; STAT YES; TEMP CORR TO 98.6; ULNAR PULSE PRESENT; VENT SETTINGS IPAP=12 EPAP=6
[2016-09-12] MEDS ORDERED: SODIUM CHLOR 0.9% IV STA (22:04)
[2016-09-12] MEDS ORDERED: VANCOMYCIN IV STA (22:04)
[2016-09-12] MEDS ORDERED: SODIUM CHLOR 0.9% 1000 ML INJ 1,000 ML IV ONE (22:15)
[2016-09-12] MEDS ORDERED: ACETAMINOPHEN 500 MG CPLT PO ONE (22:15)
--- NOTE | 2016-09-12 22:36 | HHI.HP ---
[facility] Admission Diagnosis sepsis, scrotal cellulitis, COPD exacerbation, lower extremity edema Diagnoses: (1) Sepsis Diagnosis: Principal (2) COPD (chronic obstructive pulmonary disease) Diagnosis: Principal (3) Cellulitis of scrotum Diagnosis: Principal (4) HTN (hypertension) Diagnosis: Principal Travel History International Travel<30 Days: No Contact w/Intl Traveler <30 Da: No Traveled to Known Affected Are: No History of Present Illness This is a 89-year-old male with a PMH of HTN and COPD who presented to the ER with complaints of SOB since last night. Denies fever or chills, but reports associated productive cough w/ yellow-colored sputum. Denies sick contacts. Using home nebulizer with minimal improvement. On arrival, BP 136/95, HR 119, RR 28, O2 sat 89% on RA, Temp 100.7. Placed on BIPAP. ABG w/ pH 7.37, pCO2 49 , pO2 77 on 35% FIO2. WBC normal. Chemistry essentially unremarkable. Lactic Acid normal. CXR w/ no acute findings. Also reported "rash" on scrotum x2 days , +scrotal cellulitis on exam. Scrotal US w/ normal testicles, epididymal head cyst, small hydroceles and thickening of scrotal skin. S/p Blood/Wound Cultures in ER in addition to Vanc/Zosyn/Zithro. Review of Systems Other ROS: 14 point review of systems otherwise negative. Past Family Social History Past Medical History PMH: HTN and COPD Past Surgical History PAST SURGICAL HISTORY: Penile Implant, Right Knee Surgery, Tonsillectomy Allergies: Coded Allergies: Bee Sting (Verified Allergy, Severe, Swelling, 08/22/16) Sulfa (Verified Allergy, Intermediate, HIVES, 08/22/16) Family History PAST FAMILY HISTORY: Reviewed. No h/o DM or CAD Social History PAST SOCIAL HISTORY: One beer daily. Negative for tobacco or drugs. Physical Exam Vital Signs Vital Signs Date Time Temp Pulse Resp B/P Pulse Ox O2 Delivery O2 Flow Rate FiO2 09/12/16 20:35 98 35 09/12/16 20:18 99.5 115 26 149/77 87 09/12/16 20:17 87 Nasal Cannula 2 09/12/16 20:17 87 09/12/16 20:02 100.7 119 28 136/95 89 Room Air Physical Exam PE: GENERAL: Pleasant elderly white male in no acute distress, currently on BiPAP. HEENT: PERRLA, EOMI. No scleral icterus or conjunctival pallor. No lid lag or facial droop. CARDIOVASCULAR: Regular rate and rhythm. No obvious murmurs to auscultation. No chest tenderness to palpation. RESPIRATORY: No obvious rhonchi. Occasional expiratory wheezing. Breath sounds equal bilaterally. GASTROINTESTINAL: Abdomen soft, non-tender, nondistended. BS normal. MUSCULOSKELETAL: Extremities without clubbing, cyanosis. 2+ edema bilaterally. No obvious deformities. NEUROLOGICAL: Awake, alert and oriented x4. No focal neurologic deficits. Moving both upper and lower extremities spontaneously. Laboratory Laboratory Tests Test 09/12/16 09/12/16 09/12/16 20:20 20:30 21:50 White Blood Count 10.4 Red Blood Count 4.44 Hemoglobin 11.5 Hematocrit 35.4 Mean Corpuscular Volume 79.9 Mean Corpuscular Hemoglobin 25.9 Mean Corpuscular Hemoglobin 32.4 Concent Red Cell Distribution Width 16.2 Platelet Count 210 Mean Platelet Volume 8.2 Neutrophils (%) (Auto) 46.2 Lymphocytes (%) (Auto) 39.2 Monocytes (%) (Auto) 11.7 Eosinophils (%) (Auto) 2.5 Basophils (%) (Auto) 0.4 Neutrophils # (Auto) 4.8 Lymphocytes # (Auto) 4.1 Monocytes # (Auto) 1.2 Eosinophils # (Auto) 0.3 Basophils # (Auto) 0.0 CBC Comment DIFF FINAL Differential Comment Prothrombin Time 10.6 Prothromb Time International 1.0 Ratio Activated Partial 28.6 Thromboplast Time Sodium Level 140 Potassium Level 4.5 Chloride Level 102 Carbon Dioxide Level 31.0 Anion Gap 7 Blood Urea Nitrogen 16 Creatinine 1.13 Estimat Glomerular Filtration 61 Rate Random Glucose 92 Calcium Level 8.3 Magnesium Level 2.0 Total Bilirubin 0.3 Aspartate Amino Transf 12 (AST/SGOT) Alanine Aminotransferase 18 (ALT/SGPT) Alkaline Phosphatase 79 Total Creatine Kinase 65 Troponin I 0.02 B-Type Natriuretic Peptide 30 Total Protein 6.4 Albumin 3.0 Lactic Acid Level 0.7 Blood Gas Puncture Site RT RADIAL Blood Gas Patient Temperature 98.6 Blood Gas HCO3 27 Blood Gas Base Excess 2.5 Blood Gas Oxygen Saturation 92 Arterial Blood pH 7.37 Arterial Blood Partial 49 Pressure CO2 Arterial Blood Partial 77 Pressure O2 Arterial Blood Oxygen Content 14.2 Arterial Blood 1.9 Carboxyhemoglobin Arterial Blood Methemoglobin 2.0 Blood Gas Hemoglobin 10.9 Oxygen Delivery Device BIPAP Blood Gas Ventilator Setting IPAP=12 EPAP=6 Blood Gas Inspired Oxygen 35 Date/Time Procedure Status Source Growth 09/12/16 20:35 Aerobic Blood Culture Received Blood Peripheral Pending 09/12/16 20:35 Anaerobic Blood Culture Received Blood Peripheral Pending Result Diagram: 09/12/16201909/12/162019 Assessment and Plan Problem List: (1) Sepsis ICD Code: A41.9 Status: Acute (2) Cellulitis of scrotum ICD Code: N49.2 Status: Acute (3) COPD (chronic obstructive pulmonary disease) ICD Code: J44.9 Status: Acute (4) HTN (hypertension) ICD Code: I10 Status: Chronic Assessment and Plan A/P: 1. Sepsis: Temp 100.7, RR 28, HR 115, Source-Scrotal Cellulitis, possible early PNA. S/p Blood/Wound Cultures, Vanc/Zosyn/Zithro in ER. Follow up cultures, continue w/ IV Abx. 2. Scrotal Cellulitis: Scrotal US w/ normal testicles, right epididymal head cyst, small hydroceles and thickening of scrotal skin, images reviewed by me. Continue w/ IV Abx. 3. COPD: Chronic Respiratory Failure w/ Acute Exacerbation. O2 sat 89% on RA , currently on BIPAP w/ 35% FIO2. Wean as tolerated. Solu-Medrol, DuoNeb q4 and q2hr prn, Mucinex, Symbicort. Check Sputum Cultures in light of productive cough. CXR w/ no acute findings, images reviewed by me. 4. HTN: Controlled. Will monitor. 5. DVT Prophylaxis: SCD/Teds. 6. Social work for d/c planning as needed. 7. Case discussed w/ ER physician at length. Physician Certification 2 Midnight Certification Type: Admission for Inpatient Services Order for Inpatient Services The services are ordered in accordance with Medicare regulations or non- Medicare payer requirements, as applicable. In the case of services not specified as inpatient-only, they are appropriately provided as inpatient services in accordance with the 2-midnight benchmark. Estimated LOS (days): 2 days is the estimated time the patient will need to remain in the hospital, assuming treatment plan goals are met and no additional complications. Post-Hospital Plan: Not yet determined Problem Qualifiers (1) Sepsis: Qualified Code: A41.9 - Sepsis, due to unspecified organism Kimberly Gamez MD Sep 12, 2016 22:36
[2016-09-12] MEDS ORDERED: BISACODYL 10 MG SUPP PR PRN (22:45)
[2016-09-12] MEDS ORDERED: MORPHINE SULFATE 4 MG/ML INJ IV PRN (22:45)
[2016-09-12] MEDS ORDERED: ACETAMINOPHEN/HYDROcodone 325 MG/5 MG TAB PO PRN (22:45)
[2016-09-12] MEDS ORDERED: ONDANSETRON HCL 4 MG/2 ML VIAL IVP PRN (22:45)
[2016-09-12] MEDS ORDERED: ACETAMINOPHEN 325 MG TAB PO PRN (22:45)
[2016-09-12] MEDS ORDERED: SODIUM CHLORIDE 0.9% FLUSH 5 ML FLUSH FLUSH PRN (22:45)
[2016-09-12] MEDS ORDERED: Vancomycin Consult Pharmacy 1 EA OTHER SCH (22:45)
[2016-09-12 23:08] VITALS: O2SAT 97
[2016-09-12 23:23] VITALS: BP 117/56; PULSE 93; RESP 22; O2SAT 95
[2016-09-12] MEDS: SODIUM CHLOR 0.9% 1000 ML INJ 1,000 ML IV SCH (23:52)
[2016-09-13] VITALS (13 sets, daily range): BP systolic 104–174; BP diastolic 60–87; PULSE 68–107; RESP 18–20; O2SAT 92–100
[2016-09-13] MEDS: methylPREDNISolone SOD SUCC 40 MG/1 ML VIAL IV PUSH SCH ×4 (00:26→18:58)
[2016-09-13] MEDS: PIPERACIL-TAZO 3.375 GM PREMIX 50 ML IV SCH ×4 (02:55→22:03)
[2016-09-13 07:04] LABS: AUTOMATED NEUTROPHIL # 3.5 TH/MM3 (1.8-7.7); BASOPHIL % 0.2 % (0.0-2.0); HEMATOCRIT 34.5 % (39.0-51.0); HEMO FLAGS DIFF FINAL; LYMPH % 34.3 % (9.0-44.0); LYMPHOCYTE # 1.9 TH/MM3 (1.0-4.8); MEAN CELL VOLUME 79.3 FL (80.0-100.0); MEAN CORPUSCULAR HEMOGLOBIN 25.6 PG (27.0-34.0); MEAN CORPUSCULAR HGB CONC 32.3 % (32.0-36.0); MONO % 2.7 % (0.0-8.0); NEUT % 62.8 % (16.0-70.0); PLATELET COUNT 173 TH/MM3 (150-450); RED BLOOD COUNT 4.35 MIL/MM3 (4.50-5.90); RED CELL DISTRIBUTION WIDTH 15.5 % (11.6-17.2); WHITE BLOOD COUNT 5.5 TH/MM3 (4.0-11.0)
[2016-09-13 07:29] LABS: ALKALINE PHOSPHATASE 63 U/L (45-117); ALT (GPT) 17 U/L (12-78); ANION GAP 6 MEQ/L (5-15); AST (GOT) 5 U/L (15-37); BICARBONATE 29.4 MEQ/L (21.0-32.0); BLOOD UREA NITROGEN 14 MG/DL (7-18); CHLORIDE 107 MEQ/L (98-107); GLOMERULAR FILTRATION RATE 85 ML/MIN (>89); SODIUM (NA) 142 MEQ/L (136-145); TOTAL BILIRUBIN ADULT 0.3 MG/DL (0.2-1.0)
[2016-09-13] MEDS ORDERED: LORazepam 2 MG TAB PO PRN (08:00)
[2016-09-13] MEDS ORDERED: LORazepam 2 MG/ML VIAL IV PUSH PRN ×2 (08:00)
[2016-09-13] MEDS ORDERED: LORazepam 1 MG TAB PO PRN (08:00)
[2016-09-13] MEDS ORDERED: FLUMAZENIL 0.5 MG/5 ML VIAL IV PUSH PRN (08:00)
[2016-09-13] MEDS ORDERED: cloNIDine HCL 0.1 MG TAB PO PRN (08:00)
[2016-09-13] MEDS: SODIUM CHLOR 0.9% 1000 ML INJ 1,000 ML IV SCH (08:31)
[2016-09-13] MEDS: MULTIVITAMINS/MINERALS THERAPEUTIC TAB PO SCH (09:00)
[2016-09-13] MEDS ORDERED: SODIUM CHLORIDE 0.9% FLUSH 5 ML FLUSH FLUSH SCH (09:00)
[2016-09-13] MEDS: BUDESONIDE-FORMOTEROL 160/4.5 MCG INHALER INH SCH ×2 (09:00→20:59)
[2016-09-13] MEDS ORDERED: RESP: RACEPINEPHRINE 2.25% 0.5 ML NEB NEB PRN (09:30)
[2016-09-13] MEDS: NYSTATIN 100,000 U/GM PWD 15 GM BTL TOPICAL SCH ×3 (09:30→21:00)
--- NOTE | 2016-09-13 09:37 | HHI.PR ---
Subjective Remarks Follow-up for shortness of breath. The patient reports his breathing is much better today. He was recently taken off of BiPAP a few minutes ago and transitioned to nasal cannula. He is on oxygen at home as needed. He denies any cough, pain, fever, chills. He does not follow with a box toe cutter. He does report right groin pain, redness, and drainage. Objective Vitals Vital Signs Date Time Temp Pulse Resp B/P Pulse Ox O2 Delivery O2 Flow Rate FiO2 09/13/16 07:54 95 35 09/13/16 07:21 68 18 136/71 96 BiPAP 09/13/16 06:13 74 20 104/64 96 BiPAP 09/13/16 04:54 95 35 09/13/16 03:19 78 20 114/60 100 BiPAP 09/13/16 01:42 94 45 09/12/16 23:23 93 22 117/56 95 BiPAP 09/12/16 23:08 97 35 09/12/16 20:35 98 35 09/12/16 20:18 99.5 115 26 149/77 87 09/12/16 20:17 87 Nasal Cannula 2 09/12/16 20:17 87 09/12/16 20:02 100.7 119 28 136/95 89 Room Air Result Diagram: 09/13/16 0626 09/13/1620 Imaging Last Impressions Chest X-Ray 09/12/162008 Signed Impressions: Service Date/Time: Monday, September 12, 2016 20:08 - CONCLUSION: No acute abnormality is seen. Bayron Goldstein MD Scrotum Ultrasound 09/12/16 0000 Signed Impressions: Service Date/Time: Monday, September 12, 2016 20:51 - CONCLUSION: 1. The testicles appear normal. 2. 1 cm right epididymal head cyst. 3. Small hydroceles. 4. Thickening of the scrotal skin. Bayron Goldstein MD Objective Remarks GENERAL: Well-developed well-nourished. In no acute distress. Audibly wheezing. SKIN: Warm and dry. No lesions noted. HEENT: Normocephalic. Pupils equal and round. Mucous membranes pink and moist. CARDIOVASCULAR: Regular rate and rhythm. No murmur appreciated. RESPIRATORY: No accessory muscle use. Clear to auscultation. Wheezing. Stridor. GASTROINTESTINAL: Abdomen soft, non-tender, nondistended. Bowel sounds x4. Chronic ventral hernia. : Right groin with erythema and clear drainage. MUSCULOSKELETAL: No obvious deformities. No clubbing or cyanosis. Lower extremity edema. NEUROLOGICAL: Awake and alert. No focal neurological deficits. Moves upper and lower extremities spontaneously. Normal speech. PSYCHIATRIC: Appropriate mood and affect; insight and judgment normal. A/P Problem List: (1) Sepsis ICD Code: A41.9 Status: Acute (2) Cellulitis of scrotum ICD Code: N49.2 Status: Acute (3) COPD (chronic obstructive pulmonary disease) ICD Code: J44.9 Status: Acute (4) HTN (hypertension) ICD Code: I10 Status: Chronic Assessment and Plan 89-year-old male with a PMH of HTN and COPD who presented to the ED with complaints of SOB Sepsis: Temp 100.7, RR 28, HR 115, Source-Scrotal Cellulitis, possible early PNA. Follow-up Blood/Wound Cultures. Continue IV vancomycin and Zosyn. IV. Scrotal Cellulitis: Scrotal US w/ normal testicles, right epididymal head cyst , small hydroceles and thickening of scrotal skin. History of penile prosthesis. Consult urology. Nystatin powder. Continue w/ IV Abx. COPD: Chronic Respiratory Failure on home O2 w/ Acute Exacerbation. Chest x- ray with no acute findings. S/P BIPAP overnight with improvement, transition to nasal cannula. IV Solu-Medrol. DuoNeb scheduled and as needed. Racemic epinephrine as needed. Mucinex, Symbicort. Check Sputum Cultures. Alcohol use: Reportedly drinks daily. WA protocol. Rally pack. DVT Prophylaxis: SCD/Teds. Written by Gopal Monroy, acting as scribe for Dr. Higuera on 09/13/16 at 09:29. The documentation accurately reflects the work performed [id number] by me on at 0929 Discharge Planning Disposition pending clinical course. Problem Qualifiers (1) Sepsis: Qualified Code: A41.9 - Sepsis, due to unspecified organism (2) COPD (chronic obstructive pulmonary disease): Qualified Code: J44.1 - Chronic obstructive pulmonary disease with acute exacerbation (3) HTN (hypertension): Qualified Code: I10 - Essential hypertension Gopal Monroy Sep 13, 2016 09:37 Daniel Higuera MD Sep 13, 2016 15:44
[2016-09-13] MEDS: guaiFENesin E.R. 600 MG TAB PO SCH ×2 (10:40→20:59)
[2016-09-13] MEDS: FOLIC ACID 1 MG TAB PO SCH (10:41)
[2016-09-13] MEDS: THIAMINE HCL 100 MG TAB PO SCH (10:41)
[2016-09-13] MEDS: RESP: ALBUTEROL 2.5 MG/IPRATROPIUM 0.5 MG NEB (SCH) NEB ×3 (12:32→18:46)
--- NOTE | 2016-09-13 16:33 | PD.CONS ---
[facility] Service Urology Consult Requested By Reason for Consult cellulitis Primary Care Physician [facility] Diagnosis: (1) Sepsis ICD Code: A41.9 (2) Cellulitis of scrotum ICD Code: N49.2 (3) COPD (chronic obstructive pulmonary disease) ICD Code: J44.9 (4) HTN (hypertension) ICD Code: I10 History of Present Illness 89yo male with history of COPD and HTN seen in consultation for scrotal cellulitis. 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 He has a malleable prosthetic with no pump or reservoir. Place in [place]. He developed a right groin rash affecting his right hemiscrotum and groin. Denies any voiding issues. No hematuria. Review of Systems ROS Limitations: Clinical Condition Constitutional: DENIES: Fever Endocrine: DENIES: Polyuria Eyes: DENIES: Diplopia Ears, nose, mouth, throat: DENIES: Hearing loss Respiratory: COMPLAINS OF: Apneas, Cough Cardiovascular: DENIES: Chest pain Gastrointestinal: DENIES: Abdominal pain Genitourinary: DENIES: Urgency, Hematuria, Dysuria Musculoskeletal: DENIES: Back pain Integumentary: COMPLAINS OF: Rash, DENIES: Abnormal pigmentation Immunologic/allergic: COMPLAINS OF: Eczema Neurologic: DENIES: Abnormal gait, Headache Psychiatric: DENIES: Anxiety Past Family Social History Past Medical History PMH: HTN and COPD Past Surgical History PAST SURGICAL HISTORY: Penile Implant, Right Knee Surgery, Tonsillectomy Reported Medications Reported Meds & Active Scripts Active Levaquin (Levofloxacin) 750 Mg Tab 750 Mg PO DAILY Prednisone 20 Mg Tab 20 Mg PO DIRECTED Take 40 MG twice daily x 3 days, then 40 MG once daily x 3 days, then 20 MG once daily x 3 days. Mucinex ER 12 HR (Guaifenesin) 600 Mg Yvrose 600 Mg PO BID Symbicort Inh (Budesonide/Formoterol Fumarate) 160-4.5 Mcg/Act Aero 2 Puff INH Q12HR Allergies: Coded Allergies: Bee Sting (Verified Allergy, Severe, Swelling, 08/22/16) Sulfa (Verified Allergy, Intermediate, HIVES, 08/22/16) Active Ordered Medications Current Medications Medications (Trade) Dose Ordered Sig/Jeison Route Start Time Stop Time Status Last Admin (NS Flush) 2 ml UNSCH PRN IVF 09/12/16 20:15 09/12/16 21:04 (NS Flush) 2 ml UNSCH PRN IVF 09/12/16 20:30 Methylprednisolone Sodium Succinate 40 mg 40 mg Q6HR IV PUSH 09/13/16 00:00 09/13/16 13:08 Pharmacy Profile Note 0 ml @ 0 mls/hr UNSCH OTHER 09/12/16 22:45 (NS 1000 ml Inj) 1,000 ml @ 100 mls/hr Q10H IV 09/12/16 22:31 09/12/16 23:52 (Zofran Inj) 4 mg Q6H PRN IVP 09/12/16 22:45 (Dulcolax Supp) [address] 09/12/16 22:45 (Tylenol) 650 mg Q6H PRN PO 09/12/16 22:45 ([place] 5-325 Mg) 1 tab Q4H PRN PO 09/12/16 22:45 Morphine Sulfate 2 mg 2 mg Q3H PRN IV 09/12/16 22:45 (Zosyn 3.375 Gm Premix) 50 ml @ 100 mls/hr Q6H IV 09/13/16 02:00 09/13/16 14:25 (Symbicort 160-4.5 Inh) 2 puff Q12HR INH 09/13/16 09:00 09/13/16 09:00 (Mucinex Er) 600 mg BID PO 09/13/16 09:00 09/13/16 10:40 (Folate) 1 mg DAILY PO 09/13/16 09:00 09/18/16 08:59 09/13/16 10:41 (Vitamin B1) 100 mg DAILY PO 09/13/16 09:00 09/13/16 10:41 (Theragran M Tab) 1 tab DAILY PO 09/13/16 09:00 09/18/16 08:59 09/13/16 09:00 (Catapres) 0.1 mg Q6H PRN PO 09/13/16 08:00 (Ativan) 1 mg Q4H PRN PO 09/13/16 08:00 (Ativan) 2 mg Q2H PRN PO 09/13/16 08:00 (Ativan Inj) 2 mg Q1H PRN IV PUSH 09/13/16 08:00 Lorazepam 2 mg 2 mg Q15M PRN IV PUSH 09/13/16 08:00 (Vancomycin Inj/ NS 250 ml Inj) 262.5 ml @ 250 mls/hr Q18H IV 09/13/16 18:00 Miscellaneous Information SPECIFIC LAB TO BE DRAWN:VANCOMY... ONCE ONCE XX 09/15/16 05:45 09/15/16 05:46 (Mycostatin Powder) 1 applic Q8HR TOPICAL 09/13/16 09:30 09/13/16 09:30 Family History Reviewed. No h/o DM or CAD Social History One beer daily. Negative for tobacco or drugs. Physical Exam Vital Signs Vital Signs Date Time Temp Pulse Resp B/P Pulse Ox O2 Delivery O2 Flow Rate FiO2 09/13/16 13:07 94 18 136/65 99 Nasal Cannula 3 09/13/16 10:41 100 18 127/87 95 Nasal Cannula 3 09/13/16 10:00 95 Nasal Cannula 3.00 09/13/16 07:54 95 35 09/13/16 07:21 68 18 136/71 96 BiPAP 09/13/16 06:13 74 20 104/64 96 BiPAP 09/13/16 04:54 95 35 09/13/16 03:19 78 20 114/60 100 BiPAP 09/13/16 01:42 94 45 09/12/16 23:23 93 22 117/56 95 BiPAP 09/12/16 23:08 97 35 09/12/16 20:35 98 35 09/12/16 20:18 99.5 115 26 149/77 87 09/12/16 20:17 87 Nasal Cannula 2 09/12/16 20:17 87 09/12/16 20:02 100.7 119 28 136/95 89 Room Air Physical Exam GENERAL: This is a well-nourished, well-developed patient, in no apparent distress. SKIN: Multiple skin excriations/rashes through LEs HEAD: Atraumatic. Normocephalic EYES: Extraocular motions intact. No scleral icterus. No injection or drainage. ENT: Nose without bleeding, purulent drainage Airway patent. NECK: Trachea midline. No JVD or lymphadenopathy. Supple, nontender, no meningeal signs. CARDIOVASCULAR: Extremities well persfused, normla pulses RESPIRATORY: nonlabored, equal chest rise, on O2 NC GASTROINTESTINAL: Abdomen soft, non-tender, nondistended. : Rigth hemiscrotum with mild erythema, right groin rash with well demarcated borders. Malleable penile prosthesis in good position, no evidence of erosion, implant appears to be uninvolved. Mild left hemiscrotal tenderness MUSCULOSKELETAL: Extremities without clubbing, cyanosis, or edema. NEUROLOGICAL: Awake and alert. Motor and sensory grossly within normal limits. Normal speech. Laboratory Laboratory Tests Test 09/12/16 09/12/16 09/12/16 09/13/16 20:20 20:30 21:50 06:20 White Blood Count 10.4 Red Blood Count 4.44 Hemoglobin 11.5 Hematocrit 35.4 Mean Corpuscular Volume 79.9 Mean Corpuscular Hemoglobin 25.9 Mean Corpuscular Hemoglobin 32.4 Concent Red Cell Distribution Width 16.2 Platelet Count 210 Mean Platelet Volume 8.2 Neutrophils (%) (Auto) 46.2 Lymphocytes (%) (Auto) 39.2 Monocytes (%) (Auto) 11.7 Eosinophils (%) (Auto) 2.5 Basophils (%) (Auto) 0.4 Neutrophils # (Auto) 4.8 Lymphocytes # (Auto) 4.1 Monocytes # (Auto) 1.2 Eosinophils # (Auto) 0.3 Basophils # (Auto) 0.0 CBC Comment DIFF FINAL Differential Comment Prothrombin Time 10.6 Prothromb Time International 1.0 Ratio Activated Partial 28.6 Thromboplast Time Sodium Level 140 142 Potassium Level 4.5 4.0 Chloride Level 102 107 Carbon Dioxide Level 31.0 29.4 Anion Gap 7 6 Blood Urea Nitrogen 16 14 Creatinine 1.13 0.85 Estimat Glomerular Filtration 61 85 Rate Random Glucose 92 155 Calcium Level 8.3 8.0 Magnesium Level 2.0 Total Bilirubin 0.3 0.3 Aspartate Amino Transf 12 5 (AST/SGOT) Alanine Aminotransferase 18 17 (ALT/SGPT) Alkaline Phosphatase 79 63 Total Creatine Kinase 65 Troponin I 0.02 B-Type Natriuretic Peptide 30 Total Protein 6.4 5.6 Albumin 3.0 2.5 Lactic Acid Level 0.7 Blood Gas Puncture Site RT RADIAL Blood Gas Patient Temperature 98.6 Blood Gas HCO3 27 Blood Gas Base Excess 2.5 Blood Gas Oxygen Saturation 92 Arterial Blood pH 7.37 Arterial Blood Partial 49 Pressure CO2 Arterial Blood Partial 77 Pressure O2 Arterial Blood Oxygen Content 14.2 Arterial Blood 1.9 Carboxyhemoglobin Arterial Blood Methemoglobin 2.0 Blood Gas Hemoglobin 10.9 Oxygen Delivery Device BIPAP Blood Gas Ventilator Setting IPAP=12 EPAP=6 Blood Gas Inspired Oxygen 35 Test 09/13/16 06:26 White Blood Count 5.5 Red Blood Count 4.35 Hemoglobin 11.1 Hematocrit 34.5 Mean Corpuscular Volume 79.3 Mean Corpuscular Hemoglobin 25.6 Mean Corpuscular Hemoglobin 32.3 Concent Red Cell Distribution Width 15.5 Platelet Count 173 Mean Platelet Volume 8.4 Neutrophils (%) (Auto) 62.8 Lymphocytes (%) (Auto) 34.3 Monocytes (%) (Auto) 2.7 Eosinophils (%) (Auto) 0.0 Basophils (%) (Auto) 0.2 Neutrophils # (Auto) 3.5 Lymphocytes # (Auto) 1.9 Monocytes # (Auto) 0.2 Eosinophils # (Auto) 0.0 Basophils # (Auto) 0.0 CBC Comment DIFF FINAL Differential Comment Date/Time Procedure Status Source Growth 09/12/16 20:35 Aerobic Blood Culture - Preliminary Resulted Blood Peripheral NO GROWTH IN 1 DAY 09/12/16 20:35 Anaerobic Blood Culture - Preliminary Resulted Blood Peripheral NO GROWTH IN 1 DAY Result Diagram: 09/13/1662509/13/16619 Imaging Last 72 hours Impressions Chest X-Ray 09/12/162008 Signed Impressions: Service Date/Time: Monday, September 12, 2016 20:08 - CONCLUSION: No acute abnormality is seen. Bayron Goldstein MD Scrotum Ultrasound 09/12/16 0000 Signed Impressions: Service Date/Time: Monday, September 12, 2016 20:51 - CONCLUSION: 1. The testicles appear normal. 2. 1 cm right epididymal head cyst. 3. Small hydroceles. 4. Thickening of the scrotal skin. Bayron Goldstein MD Assessment and Plan Problem List: (1) Bilateral lower extremity edema ICD Code: R60.0 Status: Acute (2) Cellulitis of scrotum ICD Code: N49.2 Status: Acute Assessment and Plan -Patient appears to have scrotal cellulitis with evidence of right groin fungal infection -Continue antibiotics and antifungals -Implant does not appear to be involved with infection, no other intervention indicated -Please call with questions Problem Qualifiers (1) Sepsis: Qualified Code: A41.9 - Sepsis, due to unspecified organism (2) COPD (chronic obstructive pulmonary disease): Qualified Code: J44.1 - Chronic obstructive pulmonary disease with acute exacerbation (3) HTN (hypertension): Qualified Code: I10 - Essential hypertension Hemant Osorio MD Sep 13, 2016 16:33
[2016-09-13] MEDS: VANCOMYCIN INJ 1,250 MG in SODIUM CHLOR 0.9% 250 ML INJ 250 ML IV SCH (18:57)
--- NOTE | 2016-09-13 23:39 | EKG ---
Date Performed: 09/12/2016 Time Performed: 20:27:38 PTAGE: 89 years EKG: SINUS TACHYCARDIA INCOMPLETE RIGHT BUNDLE BRANCH BLOCK ABNORMAL RHYTHM ECG PREVIOUS TRACING : 08/22/2016 05.42 Compared to prior tracing no significant change DOCTOR: Richard Alcazar Interpretating Date/Time 09/13/2016 23:37:46
[2016-09-13] MEDS: RESP: ALBUTEROL 2.5 MG/IPRATROPIUM 0.5 MG NEB (PRN) NEB (23:41)
[2016-09-14] VITALS (8 sets, daily range): BP systolic 112–168; BP diastolic 56–82; PULSE 79–120; RESP 17–21; TEMP 96.8–98.8; O2SAT 92–97
[2016-09-14] MEDS: methylPREDNISolone SOD SUCC 40 MG/1 ML VIAL IV PUSH SCH ×4 (00:29→18:00)
[2016-09-14] MEDS: RESP: ALBUTEROL 2.5 MG/IPRATROPIUM 0.5 MG NEB (PRN) NEB ×2 (01:50→18:31)
[2016-09-14] MEDS: PIPERACIL-TAZO 3.375 GM PREMIX 50 ML IV SCH ×2 (02:41→08:37)
[2016-09-14] MEDS: SODIUM CHLOR 0.9% 1000 ML INJ 1,000 ML IV SCH (04:31)
[2016-09-14] MEDS: NYSTATIN 100,000 U/GM PWD 15 GM BTL TOPICAL SCH ×3 (06:00→20:42)
[2016-09-14] MEDS: RESP: ALBUTEROL 2.5 MG/IPRATROPIUM 0.5 MG NEB (SCH) NEB ×4 (07:19→20:58)
[2016-09-14] MEDS: guaiFENesin E.R. 600 MG TAB PO SCH ×2 (08:37→20:41)
[2016-09-14] MEDS: FOLIC ACID 1 MG TAB PO SCH (08:37)
[2016-09-14] MEDS: MULTIVITAMINS/MINERALS THERAPEUTIC TAB PO SCH (08:37)
[2016-09-14] MEDS: THIAMINE HCL 100 MG TAB PO SCH (08:37)
[2016-09-14] MEDS: BUDESONIDE-FORMOTEROL 160/4.5 MCG INHALER INH SCH ×2 (08:38→20:41)
[2016-09-14] MEDS: VANCOMYCIN INJ 1,250 MG in SODIUM CHLOR 0.9% 250 ML INJ 250 ML IV SCH (12:05)
[2016-09-14] MEDS ORDERED: CALCIUM CARBONATE 500 MG CHEWABLE TAB CHEW PRN (14:30)
[2016-09-14] MEDS ORDERED: ALUMINUM/MAGNESIUM/SIMETH 30 ML CUP PO PRN (14:30)
--- NOTE | 2016-09-14 14:32 | HHI.PR ---
Subjective Remarks Follow-up COPD and scrotal cellulitis. Feels better but still has significant dyspnea on exertion even with limited ambulation. Discussed with RN Objective Vitals Vital Signs Date Time Temp Pulse Resp B/P Pulse Ox O2 Delivery O2 Flow Rate FiO2 09/14/16 12:00 96.9 106 20 133/65 93 09/14/16 08:00 98.1 106 20 142/82 92 09/14/16 07:19 97 Nasal Cannula 2.00 09/14/16 04:00 98.8 109 17 133/76 92 09/14/16 00:00 97.9 79 20 112/56 97 09/13/16 23:42 93 Nasal Cannula 3.00 09/13/16 22:42 105 18 174/69 95 Nasal Cannula 4 09/13/16 19:54 103 20 131/69 92 Nasal Cannula 09/13/16 16:42 107 18 136/77 96 Nasal Cannula 2 I/O 09/13/16 09/13/16 09/13/16 09/14/16 09/14/16 09/14/16 07:00 15:00 23:00 07:00 15:00 23:00 Intake Total 720 ml Balance 720 ml Intake Oral 720 ml IV Total 0 ml # Voids 2 Result Diagram: 09/13/16 0626 09/14/16 0446 Imaging Last Impressions Chest X-Ray 09/12/162008 Signed Impressions: Service Date/Time: Monday, September 12, 2016 20:08 - CONCLUSION: No acute abnormality is seen. Bayron Goldstein MD Scrotum Ultrasound 09/12/16 0000 Signed Impressions: Service Date/Time: Monday, September 12, 2016 20:51 - CONCLUSION: 1. The testicles appear normal. 2. 1 cm right epididymal head cyst. 3. Small hydroceles. 4. Thickening of the scrotal skin. Bayron Goldstein MD Objective Remarks GENERAL: Well-developed well-nourished. In no acute distress. SKIN: Warm and dry. No lesions noted. HEENT: Normocephalic. Pupils equal and round. Mucous membranes pink and moist. CARDIOVASCULAR: Regular rate and rhythm. No murmur appreciated. RESPIRATORY: No accessory muscle use. Clear to auscultation. Wheezing. GASTROINTESTINAL: Abdomen soft, non-tender, nondistended. Bowel sounds x4. Chronic ventral hernia. : Right groin with erythema which is improving without drainage. MUSCULOSKELETAL: No obvious deformities. No clubbing or cyanosis. Lower extremity edema. NEUROLOGICAL: Awake and alert. No focal neurological deficits. Moves upper and lower extremities spontaneously. Normal speech. PSYCHIATRIC: Appropriate mood and affect; insight and judgment normal. Procedures none A/P Problem List: (1) Sepsis ICD Code: A41.9 Status: Acute (2) Cellulitis of scrotum ICD Code: N49.2 Status: Acute (3) COPD (chronic obstructive pulmonary disease) ICD Code: J44.9 Status: Acute (4) HTN (hypertension) ICD Code: I10 Status: Chronic Assessment and Plan 89-year-old male with a PMH of HTN and COPD who presented to the ED with complaints of SOB Sepsis: Temp 100.7, RR 28, HR 115, Source-Scrotal Cellulitis, possible early PNA. Follow-up Blood/Wound Cultures negative to date. Improving switch to by mouth Levaquin Scrotal Cellulitis: Scrotal US w/ normal testicles, right epididymal head cyst , small hydroceles and thickening of scrotal skin. History of penile prosthesis. Consult urology who recommended medical management. Nystatin powder. Continue w/ antibiotics. Improving COPD: Chronic Respiratory Failure on home O2 w/ Acute Exacerbation. Chest x- ray with no acute findings. S/P BIPAP overnight with improvement, transition to nasal cannula. IV Solu-Medrol. DuoNeb scheduled and as needed. Racemic epinephrine as needed. Mucinex, Symbicort. Check Sputum Cultures. Improving but still with significant dyspnea Alcohol use: Reportedly drinks daily. CIWA protocol. Rally pack. DVT Prophylaxis: SCD/Teds. Early ambulation. Subcutaneous heparin Discharge Planning Not ready for discharge Problem Qualifiers (1) Sepsis: Qualified Code: A41.9 - Sepsis, due to unspecified organism (2) COPD (chronic obstructive pulmonary disease): Qualified Code: J44.1 - Chronic obstructive pulmonary disease with acute exacerbation (3) HTN (hypertension): Qualified Code: I10 - Essential hypertension Daniel Higuera MD Sep 14, 2016 14:32
[2016-09-14] MEDS: PANTOPRAZOLE SOD 40 MG DELAYED RELEASE TAB PO SCH (16:01)
[2016-09-14] MEDS: HEPARIN SODIUM - SQ 10,000 UNITS/ML VIAL SQ SCH (16:02)
[2016-09-15] VITALS: BP 135/70; PULSE 108; RESP 21; TEMP 97.4; O2SAT 94
[2016-09-15] MEDS: methylPREDNISolone SOD SUCC 40 MG/1 ML VIAL IV PUSH SCH ×5 (00:07→21:07)
[2016-09-15] MEDS: HEPARIN SODIUM - SQ 10,000 UNITS/ML VIAL SQ SCH ×2 (04:28→16:45)
[2016-09-15] MEDS ORDERED: PHARMACY ORDERED LAB XX ONE (05:45)
[2016-09-15] MEDS: NYSTATIN 100,000 U/GM PWD 15 GM BTL TOPICAL SCH ×3 (05:46→21:22)
[2016-09-15] MEDS: SODIUM CHLORIDE 0.9% FLUSH 5 ML FLUSH IVF PRN (05:47)
[2016-09-15 08:00] VITALS: BP 171/101; PULSE 88; RESP 16; TEMP 96.5; O2SAT 94
[2016-09-15] MEDS: BUDESONIDE-FORMOTEROL 160/4.5 MCG INHALER INH SCH ×2 (08:32→21:22)
[2016-09-15] MEDS: guaiFENesin E.R. 600 MG TAB PO SCH ×2 (08:32→21:07)
[2016-09-15] MEDS: MULTIVITAMINS/MINERALS THERAPEUTIC TAB PO SCH (08:33)
[2016-09-15] MEDS: FOLIC ACID 1 MG TAB PO SCH (08:33)
[2016-09-15] MEDS: PANTOPRAZOLE SOD 40 MG DELAYED RELEASE TAB PO SCH (08:33)
[2016-09-15] MEDS: THIAMINE HCL 100 MG TAB PO SCH (08:33)
[2016-09-15] MEDS: RESP: ALBUTEROL 2.5 MG/IPRATROPIUM 0.5 MG NEB (SCH) NEB ×4 (08:44→19:22)
[2016-09-15] MEDS: LEVOFLOXACIN 750 MG TAB PO SCH (11:24)
[2016-09-15 12:00] VITALS: BP 192/112; PULSE 124; RESP 18; TEMP 95.9; O2SAT 94
--- NOTE | 2016-09-15 13:24 | HHI.PR ---
Subjective Remarks Follow-up COPD. States he is improving but still with expiratory wheezes on exam. Discussed with RN Objective Vitals Vital Signs Date Time Temp Pulse Resp B/P Pulse Ox O2 Delivery O2 Flow Rate FiO2 09/15/16 12:00 95.9 124 18 192/112 94 09/15/16 08:47 Nasal Cannula 2.00 09/15/16 08:30 Nasal Cannula 09/15/16 08:00 96.5 88 16 171/101 94 09/15/16 00:00 97.4 108 21 135/70 94 09/14/16 21:00 92 Nasal Cannula 2.00 09/14/16 20:41 94 Nasal Cannula 2.00 09/14/16 20:00 96.8 120 21 168/78 94 09/14/16 16:00 96.8 104 20 138/64 96 I/O 09/14/16 09/14/16 09/14/16 09/15/16 09/15/16 09/15/16 07:00 15:00 23:00 07:00 15:00 23:00 Intake Total 720 ml 1887 ml 1023 ml 360 ml Output Total 600 ml 200 ml 3900 ml Balance 720 ml 1287 ml 823 ml -3540 ml Intake Oral 720 ml 1080 ml 480 ml 360 ml IV Total 0 ml 807 ml 543 ml Output Urine Total 600 ml 200 ml 3900 ml # Voids 2 1 # Bowel Movements 0 0 0 Result Diagram: 09/13/16 0626 09/14/16 0446 Imaging Last Impressions Chest X-Ray 09/12/162008 Signed Impressions: Service Date/Time: Monday, September 12, 2016 20:08 - CONCLUSION: No acute abnormality is seen. Bayron Goldstein MD Scrotum Ultrasound 09/12/16 0000 Signed Impressions: Service Date/Time: Monday, September 12, 2016 20:51 - CONCLUSION: 1. The testicles appear normal. 2. 1 cm right epididymal head cyst. 3. Small hydroceles. 4. Thickening of the scrotal skin. Bayron Goldstein MD Objective Remarks GENERAL: Well-developed well-nourished. In no acute distress. SKIN: Warm and dry. No lesions noted. HEENT: Normocephalic. Pupils equal and round. Mucous membranes pink and moist. CARDIOVASCULAR: Regular rate and rhythm. No murmur appreciated. RESPIRATORY: No accessory muscle use. Clear to auscultation. Still wheezing though less from yesterday GASTROINTESTINAL: Abdomen soft, non-tender, nondistended. Bowel sounds x4. Chronic ventral hernia. : Right groin with erythema which is improving without drainage. MUSCULOSKELETAL: No obvious deformities. No clubbing or cyanosis. Lower extremity edema. NEUROLOGICAL: Awake and alert. No focal neurological deficits. Moves upper and lower extremities spontaneously. Normal speech. PSYCHIATRIC: Appropriate mood and affect; insight and judgment normal. Procedures none A/P Problem List: (1) Sepsis ICD Code: A41.9 Status: Acute (2) Cellulitis of scrotum ICD Code: N49.2 Status: Acute (3) COPD (chronic obstructive pulmonary disease) ICD Code: J44.9 Status: Acute (4) HTN (hypertension) ICD Code: I10 Status: Chronic Assessment and Plan 89-year-old male with a PMH of HTN and COPD who presented to the ED with complaints of SOB Sepsis: Temp 100.7, RR 28, HR 115, Source-Scrotal Cellulitis, possible early PNA. Follow-up Blood/Wound Cultures negative to date. Improving switch to by mouth Levaquin Scrotal Cellulitis: Scrotal US w/ normal testicles, right epididymal head cyst , small hydroceles and thickening of scrotal skin. History of penile prosthesis. Consult urology who recommended medical management. Nystatin powder. Continue w/ antibiotics. Improving COPD: Chronic Respiratory Failure on home O2 w/ Acute Exacerbation. Chest x- ray with no acute findings. S/P BIPAP overnight with improvement, transition to nasal cannula. IV Solu-Medrol. DuoNeb scheduled and as needed. Racemic epinephrine as needed. Mucinex, Symbicort. Ordered Sputum Cultures. Improving but still with significant expiratory wheezes. Alcohol use: Reportedly drinks daily. CIWA protocol. Rally pack. DVT Prophylaxis: SCD/Teds. Early ambulation. Subcutaneous heparin Discharge Planning Not ready for discharge-likely high likelihood of readmission Problem Qualifiers (1) Sepsis: Qualified Code: A41.9 - Sepsis, due to unspecified organism (2) COPD (chronic obstructive pulmonary disease): Qualified Code: J44.1 - Chronic obstructive pulmonary disease with acute exacerbation (3) HTN (hypertension): Qualified Code: I10 - Essential hypertension Daniel Higuera MD Sep 15, 2016 13:24
[2016-09-15 15:40] VITALS: O2SAT 94
[2016-09-15 16:00] VITALS: BP 150/76; PULSE 103; RESP 17; TEMP 96.4; O2SAT 96
[2016-09-15 20:00] VITALS: BP 139/82; PULSE 114; RESP 21; TEMP 97.6; O2SAT 97
[2016-09-15] MEDS ORDERED: traZODone HCL 50 MG TAB PO ONE (22:30)
[2016-09-16] VITALS (8 sets, daily range): BP systolic 128–156; BP diastolic 77–96; PULSE 87–124; RESP 16–19; TEMP 96–98.9; O2SAT 94–98
[2016-09-16] MEDS: SODIUM CHLORIDE 0.9% FLUSH 5 ML FLUSH IVF PRN (04:54)
[2016-09-16] MEDS: HEPARIN SODIUM - SQ 10,000 UNITS/ML VIAL SQ SCH ×2 (04:54→14:59)
[2016-09-16] MEDS: methylPREDNISolone SOD SUCC 40 MG/1 ML VIAL IV PUSH SCH ×3 (04:54→21:14)
[2016-09-16] MEDS: NYSTATIN 100,000 U/GM PWD 15 GM BTL TOPICAL SCH ×3 (04:58→21:14)
[2016-09-16] MEDS: RESP: ALBUTEROL 2.5 MG/IPRATROPIUM 0.5 MG NEB (SCH) NEB ×4 (08:08→19:18)
[2016-09-16] MEDS: guaiFENesin E.R. 600 MG TAB PO SCH ×2 (09:00→21:13)
[2016-09-16] MEDS: PANTOPRAZOLE SOD 40 MG DELAYED RELEASE TAB PO SCH (10:29)
[2016-09-16] MEDS: MULTIVITAMINS/MINERALS THERAPEUTIC TAB PO SCH (10:30)
[2016-09-16] MEDS: THIAMINE HCL 100 MG TAB PO SCH (10:30)
[2016-09-16] MEDS: FOLIC ACID 1 MG TAB PO SCH (10:30)
[2016-09-16] MEDS: BUDESONIDE-FORMOTEROL 160/4.5 MCG INHALER INH SCH ×2 (10:31→21:14)
--- NOTE | 2016-09-16 12:45 | HHI.PR ---
Subjective Remarks F/U COPD. Improving SOB but has not been OOB dw RN Objective Vitals Vital Signs Date Time Temp Pulse Resp B/P Pulse Ox O2 Delivery O2 Flow Rate FiO2 09/16/16 08:30 93 2.00 21 09/16/16 08:08 98 Nasal Cannula 2.00 09/16/16 08:00 96.6 92 16 156/95 97 09/16/16 02:00 98.9 09/16/16 00:00 96.0 87 19 141/77 94 09/15/16 21:04 97 Nasal Cannula 2.00 09/15/16 20:00 97.6 114 21 139/82 97 09/15/16 16:00 96.4 103 17 150/76 96 09/15/16 15:40 94 Nasal Cannula 2.00 I/O 09/15/16 09/15/16 09/15/16 09/16/16 09/16/16 09/16/16 07:00 15:00 23:00 07:00 15:00 23:00 Intake Total 360 ml 995 ml 240 ml 360 ml Output Total 3900 ml 1145 ml 1500 ml 3500 ml Balance -3540 ml -150 ml -1260 ml -3140 ml Intake Oral 360 ml 995 ml 240 ml 360 ml Output Urine Total 3900 ml 1145 ml 1500 ml 3500 ml # Bowel Movements 0 1 0 0 Result Diagram: 09/13/1662509/14/16 0446 Objective Remarks GENERAL: Well-developed well-nourished. In no acute distress. SKIN: Warm and dry. No lesions noted. HEENT: Normocephalic. Pupils equal and round. Mucous membranes pink and moist. CARDIOVASCULAR: Regular rate and rhythm. No murmur appreciated. RESPIRATORY: No accessory muscle use. Still wheezing GASTROINTESTINAL: Abdomen soft, non-tender, nondistended. Bowel sounds x4. Chronic ventral hernia. : Right groin with erythema which is improving without drainage. MUSCULOSKELETAL: No obvious deformities. No clubbing or cyanosis. Lower extremity edema. NEUROLOGICAL: Awake and alert. No focal neurological deficits. Moves upper and lower extremities spontaneously. Normal speech. PSYCHIATRIC: Appropriate mood and affect; insight and judgment normal. Procedures none A/P Problem List: (1) Sepsis ICD Code: A41.9 Status: Acute (2) Cellulitis of scrotum ICD Code: N49.2 Status: Acute (3) COPD (chronic obstructive pulmonary disease) ICD Code: J44.9 Status: Acute (4) HTN (hypertension) ICD Code: I10 Status: Chronic Assessment and Plan 89-year-old male with a PMH of HTN and COPD who presented to the ED with complaints of SOB Sepsis: Temp 100.7, RR 28, HR 115, Source-Scrotal Cellulitis, possible early PNA. Follow-up Blood/Wound Cultures negative to date. Improving switch to by mouth Levaquin Scrotal Cellulitis: Scrotal US w/ normal testicles, right epididymal head cyst , small hydroceles and thickening of scrotal skin. History of penile prosthesis. Consult urology who recommended medical management. Nystatin powder. Continue w/ antibiotics. Improving COPD: Chronic Respiratory Failure on home O2 w/ Acute Exacerbation. Chest x- ray with no acute findings. S/P BIPAP overnight with improvement, transition to nasal cannula. IV Solu-Medrol. DuoNeb scheduled and as needed. Racemic epinephrine as needed. Mucinex, Symbicort. Ordered Sputum Cultures. Improving but still with significant expiratory wheezes. Alcohol use: Reportedly drinks daily. CIWA protocol. Rally pack. DVT Prophylaxis: SCD/Teds. Early ambulation. Subcutaneous heparin Discharge Planning Not ready for discharge-likely high likelihood of readmission 2/2 active wheezing. Needs to increase activity. PT consulted Problem Qualifiers (1) Sepsis: Qualified Code: A41.9 - Sepsis, due to unspecified organism (2) COPD (chronic obstructive pulmonary disease): Qualified Code: J44.1 - Chronic obstructive pulmonary disease with acute exacerbation (3) HTN (hypertension): Qualified Code: I10 - Essential hypertension Daniel Higuera MD Sep 16, 2016 12:45
[2016-09-16] MEDS ORDERED: ZOLPIDEM TARTRATE 5 MG TAB PO PRN (13:00)
[2016-09-16] MEDS: LEVOFLOXACIN 750 MG TAB PO SCH (14:58)
--- NOTE | 2016-09-16 19:57 | HHI.PR ---
Subjective Remarks Doing well. Cellulitis improving. No fevers. Objective Vital Signs Vital Signs Date Time Temp Pulse Resp B/P Pulse Ox O2 Delivery O2 Flow Rate FiO2 09/16/16 16:00 97.0 110 18 128/90 96 09/16/16 15:34 98 Nasal Cannula 2.00 09/16/16 12:00 96.2 124 18 156/96 97 09/16/16 08:30 93 2.00 21 09/16/16 08:08 98 Nasal Cannula 2.00 09/16/16 08:00 96.6 92 16 156/95 97 09/16/16 02:00 98.9 09/16/16 00:00 96.0 87 19 141/77 94 09/15/16 21:04 97 Nasal Cannula 2.00 09/15/16 20:00 97.6 114 21 139/82 97 I/O 09/15/16 09/15/16 09/15/16 09/16/16 09/16/16 09/16/16 07:00 15:00 23:00 07:00 15:00 23:00 Intake Total 360 ml 995 ml 240 ml 360 ml 840 ml Output Total 3900 ml 1145 ml 1500 ml 3500 ml Balance -3540 ml -150 ml -1260 ml -3140 ml 840 ml Intake Oral 360 ml 995 ml 240 ml 360 ml 840 ml Output Urine Total 3900 ml 1145 ml 1500 ml 3500 ml # Voids 2 # Bowel Movements 0 1 0 0 0 Result Diagram: 09/13/16 0626 09/14/16 0446 Imaging Last 72 hours Impressions Chest X-Ray 09/12/162008 Signed Impressions: Service Date/Time: Monday, September 12, 2016 20:08 - CONCLUSION: No acute abnormality is seen. Bayron Goldstein MD Scrotum Ultrasound 09/12/16 0000 Signed Impressions: Service Date/Time: Monday, September 12, 2016 20:51 - CONCLUSION: 1. The testicles appear normal. 2. 1 cm right epididymal head cyst. 3. Small hydroceles. 4. Thickening of the scrotal skin. Bayron Goldstein MD Objective Remarks Scrotal erythema improved. Implant intact, no pain, no evidence of infection or erosion Assessment and Plan Problem List: (1) Bilateral lower extremity edema ICD Code: R60.0 Status: Acute (2) Cellulitis of scrotum ICD Code: N49.2 Status: Acute Assessment and Plan -Continue abx -Implant does not appear involved with infection -follow-up with urology after discharge Hemant Osorio MD Sep 16, 2016 19:57
[2016-09-17] VITALS: BP 135/71; PULSE 88; RESP 20; TEMP 97.6; O2SAT 95
[2016-09-17] MEDS: HEPARIN SODIUM - SQ 10,000 UNITS/ML VIAL SQ SCH (04:18)
[2016-09-17] MEDS: NYSTATIN 100,000 U/GM PWD 15 GM BTL TOPICAL SCH ×2 (04:20→12:51)
[2016-09-17 07:37] VITALS: O2SAT 97
[2016-09-17] MEDS: RESP: ALBUTEROL 2.5 MG/IPRATROPIUM 0.5 MG NEB (SCH) NEB (07:37)
[2016-09-17 08:00] VITALS: BP 148/88; PULSE 84; RESP 16; TEMP 97.1; O2SAT 98
[2016-09-17] MEDS ORDERED: PRED20 PO (09:03)
[2016-09-17] MEDS ORDERED: LEVA750T PO (09:03)
[2016-09-17] MEDS ORDERED: VITA100T2 PO (09:03)
[2016-09-17] MEDS ORDERED: PANT40TA3 PO (09:03)
--- NOTE | 2016-09-17 09:04 | HHI.DCPOC ---
Discharge Care Plan Diagnosis: (1) COPD exacerbation (2) Cellulitis of scrotum Your Health Problems Are: Difficulty with ADL Exercise Tolerance Goals to Promote Your Health * To prevent worsening of your condition and complications * To maintain your health at the optimal level Directions to Meet Your Goals Take your medications as prescribed Follow your dietary instruction Follow activity as directed Keep your appointments as scheduled Take your immunizations and boosters as scheduled If your symptoms worsen call your PCP, if no PCP go to Urgent Care Center or Emergency Room Smoking is Dangerous to Your Health. Avoid second hand smoke Call the 24-hour hour crisis hotline for domestic abuse at Daniel Higuera MD Sep 17, 2016 09:03
[2016-09-17] MEDS: THIAMINE HCL 100 MG TAB PO SCH (09:33)
[2016-09-17] MEDS: methylPREDNISolone SOD SUCC 40 MG/1 ML VIAL IV PUSH SCH (09:33)
[2016-09-17] MEDS: MULTIVITAMINS/MINERALS THERAPEUTIC TAB PO SCH (09:33)
[2016-09-17] MEDS: guaiFENesin E.R. 600 MG TAB PO SCH (09:33)
[2016-09-17] MEDS: BUDESONIDE-FORMOTEROL 160/4.5 MCG INHALER INH SCH (09:33)
[2016-09-17] MEDS: FOLIC ACID 1 MG TAB PO SCH (09:34)
[2016-09-17] MEDS: PANTOPRAZOLE SOD 40 MG DELAYED RELEASE TAB PO SCH (09:34)
[2016-09-17] MEDS: RESP: ALBUTEROL 2.5 MG/IPRATROPIUM 0.5 MG NEB (PRN) NEB (11:38)
[2016-09-17 12:00] VITALS: BP 138/91; PULSE 108; RESP 18; TEMP 97; O2SAT 97
--- NOTE | 2016-09-17 12:49 | HHI.PR ---
Subjective Remarks Follow-up COPD. Denies shortness of breath. Tolerated ambulation in the hallway discussed with RN. Objective Vitals Vital Signs Date Time Temp Pulse Resp B/P Pulse Ox O2 Delivery O2 Flow Rate FiO2 09/17/16 08:15 2.00 21 09/17/16 08:00 97.1 84 16 148/88 98 09/17/16 07:37 97 Nasal Cannula 2.00 09/17/16 00:00 97.6 88 20 135/71 95 09/16/16 21:00 Nasal Cannula 2.00 09/16/16 20:00 97.7 103 18 135/85 94 09/16/16 16:00 97.0 110 18 128/90 96 09/16/16 15:34 98 Nasal Cannula 2.00 I/O 09/16/16 09/16/16 09/16/16 09/17/16 09/17/16 09/17/16 07:00 15:00 23:00 07:00 15:00 23:00 Intake Total 360 ml 840 ml 480 ml 240 ml Output Total 3500 ml 900 ml 1800 ml Balance -3140 ml 840 ml -420 ml -1560 ml Intake Oral 360 ml 840 ml 480 ml 240 ml IV Total 0 ml 0 ml Output Urine Total 3500 ml 900 ml 1800 ml # Voids 2 # Bowel Movements 0 0 0 0 Result Diagram: 09/13/16 0626 09/14/16 0446 Objective Remarks GENERAL: Well-developed well-nourished. In no acute distress. SKIN: Warm and dry. No lesions noted. HEENT: Normocephalic. Pupils equal and round. Mucous membranes pink and moist. CARDIOVASCULAR: Regular rate and rhythm. No murmur appreciated. RESPIRATORY: No accessory muscle use. Improved expiratory wheezing GASTROINTESTINAL: Abdomen soft, non-tender, nondistended. Bowel sounds x4. Chronic ventral hernia. : Right groin with erythema which is improving without drainage. MUSCULOSKELETAL: No obvious deformities. No clubbing or cyanosis. Lower extremity edema. NEUROLOGICAL: Awake and alert. No focal neurological deficits. Moves upper and lower extremities spontaneously. Normal speech. PSYCHIATRIC: Appropriate mood and affect; insight and judgment normal. Procedures none A/P Problem List: (1) Sepsis ICD Code: A41.9 Status: Acute (2) Cellulitis of scrotum ICD Code: N49.2 Status: Acute (3) COPD (chronic obstructive pulmonary disease) ICD Code: J44.9 Status: Acute (4) HTN (hypertension) ICD Code: I10 Status: Chronic Assessment and Plan 89-year-old male with a PMH of HTN and COPD who presented to the ED with complaints of SOB Sepsis: Temp 100.7, RR 28, HR 115, Source-Scrotal Cellulitis, possible early PNA. Follow-up Blood/Wound Cultures negative to date. Improving switch to by mouth Levaquin Scrotal Cellulitis: Scrotal US w/ normal testicles, right epididymal head cyst , small hydroceles and thickening of scrotal skin. History of penile prosthesis. Consult urology who recommended medical management. Nystatin powder. Continue w/ antibiotics. Improving COPD: Chronic Respiratory Failure on home O2 w/ Acute Exacerbation. Chest x- ray with no acute findings. S/P BIPAP overnight with improvement, transition to nasal cannula. IV Solu-Medrol. DuoNeb scheduled and as needed. Racemic epinephrine as needed. Mucinex, Symbicort. Ordered Sputum Cultures. Improved tolerating increased tolerance ambulated 20 feet. Alcohol use: Reportedly drinks daily. CIWA protocol. Rally pack. DVT Prophylaxis: SCD/Teds. Early ambulation. Subcutaneous heparin Discharge Planning Stable for discharge Problem Qualifiers (1) Sepsis: Qualified Code: A41.9 - Sepsis, due to unspecified organism (2) COPD (chronic obstructive pulmonary disease): Qualified Code: J44.1 - Chronic obstructive pulmonary disease with acute exacerbation (3) HTN (hypertension): Qualified Code: I10 - Essential hypertension Daniel Higuera MD Sep 17, 2016 12:49
[2016-09-17] MEDS: LEVOFLOXACIN 750 MG TAB PO SCH (12:50)
--- NOTE | 2016-09-17 15:09 | HHI.FF ---
Face to Face Verification Diagnosis: (1) COPD exacerbation Physical Therapy Order: Evaluate and Treat, Improve ambulation, Strength and gait training I have seen patient Joe Ace on 09/17/16. My clinical findings support the need for the requested home health care services because: Patient has SOB I certify that my clinical findings support that this patient is homebound because: Hx COPD- exertion dyspnea/weakness Daniel Higuera MD Sep 17, 2016 15:08
--- NOTE | 2016-09-17 15:17 | HHI.DS ---
Discharge Summary Admission Date Sep 12, 2016 at 22:31 Discharge Date: Sep 17, 2016 Admitting Diagnosis sepsis, scrotal cellulitis, COPD exacerbation, lower extremity edema (1) Sepsis ICD Code: A41.9 Diagnosis: Principal (2) Cellulitis of scrotum ICD Code: N49.2 Diagnosis: Principal (3) COPD (chronic obstructive pulmonary disease) ICD Code: J44.9 Diagnosis: Secondary (4) HTN (hypertension) ICD Code: I10 Diagnosis: Secondary Procedures none Brief History - From Admission This is a 89-year-old male with a PMH of HTN and COPD who presented to the ER with complaints of SOB since last night. Denies fever or chills, but reports associated productive cough w/ yellow-colored sputum. Denies sick contacts. Using home nebulizer with minimal improvement. On arrival, BP 136/95, HR 119, RR 28, O2 sat 89% on RA, Temp 100.7. Placed on BIPAP. ABG w/ pH 7.37, pCO2 49 , pO2 77 on 35% FIO2. WBC normal. Chemistry essentially unremarkable. Lactic Acid normal. CXR w/ no acute findings. Also reported "rash" on scrotum x2 days , +scrotal cellulitis on exam. Scrotal US w/ normal testicles, epididymal head cyst, small hydroceles and thickening of scrotal skin. S/p Blood/Wound Cultures in ER in addition to Vanc/Zosyn/Zithro. CBC/BMP: 09/13/16 0626 09/14/16 0446 Imaging Last Impressions Chest X-Ray 09/12/162008 Signed Impressions: Service Date/Time: Monday, September 12, 2016 20:08 - CONCLUSION: No acute abnormality is seen. Bayron Goldstein MD Scrotum Ultrasound 09/12/16 0000 Signed Impressions: Service Date/Time: Monday, September 12, 2016 20:51 - CONCLUSION: 1. The testicles appear normal. 2. 1 cm right epididymal head cyst. 3. Small hydroceles. 4. Thickening of the scrotal skin. Bayron Goldstein MD PE at Discharge GENERAL: Well-developed well-nourished. In no acute distress. SKIN: Warm and dry. No lesions noted. HEENT: Normocephalic. Pupils equal and round. Mucous membranes pink and moist. CARDIOVASCULAR: Regular rate and rhythm. No murmur appreciated. RESPIRATORY: No accessory muscle use. Improved expiratory wheezing GASTROINTESTINAL: Abdomen soft, non-tender, nondistended. Bowel sounds x4. Chronic ventral hernia. : Right groin with erythema which is improving without drainage. MUSCULOSKELETAL: No obvious deformities. No clubbing or cyanosis. Lower extremity edema. NEUROLOGICAL: Awake and alert. No focal neurological deficits. Moves upper and lower extremities spontaneously. Normal speech. PSYCHIATRIC: Appropriate mood and affect; insight and judgment normal. Hospital Course 89-year-old male with a PMH of HTN and COPD who presented to the ED with complaints of SOB Sepsis: Temp 100.7, RR 28, HR 115, Source-Scrotal Cellulitis, possible early PNA. Follow-up Blood/Wound Cultures negative to date. Improving switch to by mouth Levaquin Scrotal Cellulitis: Scrotal US w/ normal testicles, right epididymal head cyst , small hydroceles and thickening of scrotal skin. History of penile prosthesis. Consult urology who recommended medical management. Nystatin powder. Continue w/ antibiotics. Improving COPD: Chronic Respiratory Failure on home O2 w/ Acute Exacerbation. Chest x- ray with no acute findings. S/P BIPAP overnight with improvement, transition to nasal cannula. IV Solu-Medrol. DuoNeb scheduled and as needed. Racemic epinephrine as needed. Mucinex, Symbicort. Ordered Sputum Cultures. Improved tolerating increased tolerance ambulated 20 feet. Alcohol use: Reportedly drinks daily. CIWA protocol. Rally pack. DVT Prophylaxis: SCD/Teds. Early ambulation. Subcutaneous heparin Pt Condition on Discharge: Stable Discharge Disposition: Disch w/ Home Health Serv Discharge Time: <= 30 minutes Discharge Instructions DIET: Follow Instructions for: Heart Healthy Diet Activities you can perform: Regular-No Restrictions Activities to Avoid: Driving Follow up Referrals: PCP Follow-up - 1 Week New Medications: Prednisone (Prednisone) 20 Mg Tab 40 MG PO DAILY take 2 pills daily for 3 days then one pill daily for 3 days then half a pill daily for 3 days Control Inflammation #11 Ref 0 TAB Levofloxacin (Levaquin) 750 Mg Tab 750 MG PO Q24H Infection #5 TAB Pantoprazole (Pantoprazole) 40 Mg Tab 40 MG PO DAILY Manage Heartburn #14 TAB Thiamine (Vitamin B-1) 100 Mg Tab 100 MG PO DAILY Alcohol Detox #30 TAB Continued Medications: Budesonide-Formoterol Inh (Symbicort Inh) 160-4.5 Mcg/Act Aero 2 PUFF INH Q12HR COPD #1 INHALER Guaifenesin ER 12 HR (Mucinex ER 12 HR) 600 Mg Yvrose 600 MG PO BID Chest Congestion/Cough #20 TAB Daniel Higuera MD Sep 17, 2016 15:17
== END 2016-09-17 13:57 | disposition home or self-care (01) | DRG 872 ==
LOC: NEPE 20:00 → NEDA 22:31 → NEDH 09-13 07:14 → N07B 09-13 23:35
PROVIDERS: ADMIT Internal Medicine; ATTEND Internal Medicine
PROC: 5A09357 Assistance with Respiratory Ventilation, Less than 24 Consecutive Hours, Continuous Positive Airway Pressure (ICD-10-PCS; principal; 2016-09-12)
DX: A41.9 Sepsis, unspecified organism (principal); J96.10 Chronic respiratory failure, unspecified whether with hypoxia or hypercapnia; J44.1 Chronic obstructive pulmonary disease with (acute) exacerbation; Z99.81 Dependence on supplemental oxygen; N49.2 Inflammatory disorders of scrotum; R60.0 Localized edema; I10 Essential (primary) hypertension; B35.6 Tinea cruris; L89.511 Pressure ulcer of right ankle, stage 1; Z85.828 Personal history of other malignant neoplasm of skin
CPT/HCPCS: 36600; 71010; 76870; 80053; 82550; 82565; 82805; 83605; 83735; 83880; 84484; 85025; 85610; 85730; 87040; 93005; 93975; 94003; 94640; 94664; 96365; 96375; J0456; J1644; J2543; J2920; J2930; J3370; J7030; J7050

== ENCOUNTER 2016-10-26 13:18 | Inpatient (IN) | payer OTHER ==
[~2016-10-26] VITALS: Ht 172.7 cm; Wt 81.6 kg
[2016-10-26] VITALS (8 sets, daily range): BP systolic 108–128; BP diastolic 57–71; PULSE 98–120; RESP 20–36; TEMP 97.3–98.4; O2SAT 82–98
[~2016-10-26 13:18] MED LIST changes: +PANT40TA3 PO; +VITA100T2 PO
[2016-10-26] MEDS ORDERED: FURO1TAB62 PO (13:36)
--- NOTE | 2016-10-26 13:41 | PD ---
HPI Chief Complaint: Respiratory Distress Time Seen by Provider: 13:39 Travel History International Travel<30 days: No Contact w/Intl Traveler<30days: No Traveled to known affect area: No History of Present Illness HPI 89-year-old male came to the emergency room with history of shortness of breath and chest pain that started this morning. His daughter is here and says at one point she noticed that he had some facial droop on the left side which is completely gone away at this point. His oxygen saturation in triage was 85% on room air. Patient usually requires 2 L of oxygen at home. As history of COPD and history of angina. He says currently he still has chest pain. He has been admitted for COPD in the past. He is awake and answering questions appropriately. He points to the left side of his chest with the chest pressure and says is 5 out of 10. It radiates to his left arm. PFSH Past Medical History Narrative Medical List of his past medical, social and surgical history as reviewed from the nursing note. Hx Anticoagulant Therapy: Yes Arthritis: Yes (hands) Asthma: No Blood Disorders: No Anxiety: No Depression: Yes Heart Rhythm Problems: No Cancer: Yes (Skin cancer) Cardiovascular Problems: Yes High Cholesterol: Yes Chemotherapy: No Chest Pain: Yes Congestive Heart Failure: No COPD: Yes Cerebrovascular Accident: No Coronary Artery Disease: No Diabetes: Yes Patient Takes Glucophage: No Diminished Hearing: Yes Endocrine: No Gastrointestinal Disorders: Yes (Hernia) GERD: No Genitourinary: No Headaches: Yes Hiatal Hernia: Yes Heparin Induced Thrombocytopen: No Hypertension: Yes Immune Disorder: No Implanted Vascular Access Dvce: Yes Kidney Stones: Yes (as a kid) Musculoskeletal: Yes (Right Knee surgeries ) Neurologic: No Psychiatric: Yes Reproductive: No Respiratory: Yes Immunizations Current: Yes Migraines: No Radiation Therapy: No Renal Failure: No Seizures: No Sickle Cell Disease: No Sleep Apnea: No Thyroid Disease: No Ulcer: Yes Influenza Vaccination: No Past Surgical History Abdominal Surgery: Yes (removal of cyst) AICD: No Body Medical Devices: Penile implant Cardiac Surgery: No Ear Surgery: No Endocrine Surgery: No Eye Surgery: Yes Genitourinary Surgery: No Gynecologic Surgery: No Insulin Pump: No Joint Replacement: No Neurologic Surgery: No Oral Surgery: Yes Pacemaker: No Thoracic Surgery: No Tonsillectomy: Yes Other Surgery: Yes (penile implant) Social History Alcohol Use: Yes (occassionally) Tobacco Use: No Substance Use: No Allergies-Medications (Allergen,Severity, Reaction): Coded Allergies: Bee Sting (Verified Allergy, Severe, Swelling, 10/26/16) Sulfa (Verified Allergy, Intermediate, HIVES, 10/26/16) Comments List of his allergies reviewed from the nursing note. Reported Meds & Prescriptions Reported Meds & Active Scripts Active Prednisone 20 Mg Tab 40 Mg PO DAILY take 2 pills daily for 3 days then one pill daily for 3 days then half a pill daily for 3 days Vitamin B-1 (Thiamine HCl) 100 Mg Tab 100 Mg PO DAILY Pantoprazole (Pantoprazole Sodium) 40 Mg Tab 40 Mg PO DAILY Prednisone 20 Mg Tab 20 Mg PO DIRECTED Take 40 MG twice daily x 3 days, then 40 MG once daily x 3 days, then 20 MG once daily x 3 days. Mucinex ER 12 HR (Guaifenesin) 600 Mg Yvrose 600 Mg PO BID Symbicort Inh (Budesonide/Formoterol Fumarate) 160-4.5 Mcg/Act Aero 2 Puff INH Q12HR Reported Lasix (Furosemide) 20 Mg Tab 20 Mg PO DAILY Narrative Medication List of his home medications reviewed from the nursing note. Review of Systems Except as stated in HPI: all other systems reviewed are Neg Physical Exam Narrative GENERAL: Awake, alert, elderly, moderate distress SKIN: Warm and dry. HEAD: Atraumatic. Normocephalic. EYES: Pupils equal and round. No scleral icterus. No injection or drainage. ENT: No nasal bleeding or discharge. Mucous membranes pink and moist. NECK: Trachea midline. No JVD. CARDIOVASCULAR: Regular rate and rhythm. No murmur appreciated. RESPIRATORY: Decreased air entry bilaterally with fine crackles and end expiratory wheeze. GASTROINTESTINAL: Abdomen soft, non-tender, nondistended. Hepatic and splenic margins not palpable. MUSCULOSKELETAL: No obvious deformities. No clubbing. No cyanosis. 2+ pedal edema NEUROLOGICAL: Awake and alert. No obvious cranial nerve deficits. Motor grossly within normal limits. Normal speech. PSYCHIATRIC: Appropriate mood and affect; insight and judgment normal. Data Data Last Documented VS Orders Complete Blood Count With Diff (10/26/16 13:39) Basic Metabolic Panel (Bmp) (10/26/16 13:39) B-Type Natriuretic Peptide (10/26/16 13:39) Prothrombin Time / Inr (Pt) (10/26/16 13:39) Magnesium (Mg) (10/26/16 13:39) Troponin I (10/26/16 13:39) Arterial Blood Gas (Abg) (10/26/16 13:39) Iv Access Insert/Monitor (10/26/16 13:39) Electrocardiogram (10/26/16 13:39) Ecg Monitoring (10/26/16 13:39) Oximetry (10/26/16 13:39) Oxygen Administration (10/26/16 13:39) Chest, Single Ap (10/26/16 13:39) Sodium Chloride 0.9% Flush (Ns Flush) (10/26/16 13:45) Methylprednisolone So Succ Inj (Solumedr (10/26/16 13:45) Albuterol-Ipratropium Neb (Duoneb Neb) (10/26/16 13:45) Furosemide Inj (Lasix Inj) (10/26/16 13:45) Lactic Acid (10/26/16 14:20) Blood Culture (10/26/16 14:20) Ceftriaxone Inj (Rocephin Inj) (10/26/16 14:30) Azithromycin Inj (Zithromax Inj) (10/26/16 14:30) Morphine Inj (Morphine Inj) (10/26/16 15:45) Admit Order (Ed Use Only) (10/26/16 15:36) Labs MDM Medical Decision Making Medical Screen Exam Complete: Yes Emergency Medical Condition: Yes Medical Record Reviewed: Yes Interpretation(s) Twelve-lead EKG was reviewed by me. Normal sinus rhythm, normal axis, tachycardia, right bundle branch block. Heart rate of 111 bpm. Differential Diagnosis CHF exacerbation, COPD exacerbation, pneumonia, ACS, non-STEMI Narrative Course 2:34 PM patient was given 2 DuoNeb labs, IV Solu-Medrol, IV Lasix. Blood gas showed hypoxia but otherwise normal pH. White count is 18,000 and chest x-ray shows left lower lobe infiltrate with some effusion. I have ordered IV Rocephin and azithromycin. Troponin is negative. BNP is pending. Patient will need to be admitted. Awaiting for the hospitalist to call back. Critical Care Narrative Aggregate critical care time was 30 minutes. Time to perform other separately billable procedures was not included in the critical care time. My time did not include minutes spent treating any other patients simultaneously or on activities that did not directly contribute to the patient's treatment. The services I provided to this patient were to treat and/or prevent clinically significant deterioration that could result in: Respiratory distress, hypoxia, pneumonia, chest pain I provided critical care services requiring my management, as noted below: Chart data review, documentation time, medication orders and management, vital sign assessments/reviewing monitor data, ordering and reviewing lab tests, ordering and interpreting/reviewing x-rays and diagnostic studies, care of the patient and discussion of the patient with the admitting physicians. Procedures EKG Prior to Arrival: Yes Diagnosis Primary Impression: Hypoxia Additional Impressions: Respiratory distress Pneumonia Qualified Code: J18.1 - Pneumonia of left lower lobe due to infectious organism Chest pain Qualified Code: R07.9 - Chest pain, unspecified type Admitting Information Admitting Physician Requests: Admit Kelvin Mclain MD Oct 26, 2016 13:41 Hemoglobin 11.7 GM/DL Hematocrit 36.1 % Mean Corpuscular Volume 79.3 FL Mean Corpuscular Hemoglobin 25.8 PG Mean Corpuscular Hemoglobin 32.5 % Concent Red Cell Distribution Width 15.9 % Platelet Count 222 TH/MM3 Mean Platelet Volume 8.4 FL Neutrophils (%) (Auto) 54.0 % Lymphocytes (%) (Auto) 35.8 % Monocytes (%) (Auto) 9.3 % Eosinophils (%) (Auto) 0.4 % Basophils (%) (Auto) 0.5 % Neutrophils # (Auto) 9.7 TH/MM3 Lymphocytes # (Auto) 6.4 TH/MM3 Monocytes # (Auto) 1.7 TH/MM3 Eosinophils # (Auto) 0.1 TH/MM3 Basophils # (Auto) 0.1 TH/MM3 CBC Comment AUTO DIFF Differential Total Cells 100 Counted Neutrophils % (Manual) 50 % Band Neutrophils % 2 % Lymphocytes % 40 % Monocytes % 7 % Eosinophils % 1 % Neutrophils # (Manual) 9.4 TH/MM3 Differential Comment FINAL DIFF MANUAL Platelet Estimate NORMAL Platelet Morphology Comment NORMAL Red Cell Morphology Comment NORMAL Prothrombin Time 10.7 SEC Prothromb Time International 1.0 RATIO Ratio Sodium Level 139 MEQ/L Potassium Level 3.5 MEQ/L Chloride Level 98 MEQ/L Carbon Dioxide Level 33.2 MEQ/L Anion Gap 8 MEQ/L Blood Urea Nitrogen 13 MG/DL Creatinine 1.06 MG/DL Estimat Glomerular Filtration 66 ML/MIN Rate Random Glucose 115 MG/DL Calcium Level 8.7 MG/DL Magnesium Level 2.0 MG/DL Troponin I LESS THAN 0.02 NG/ML B-Type Natriuretic Peptide 34 PG/ML Lactic Acid Level 0.7 mmol/L MDM Medical Decision Making Medical Screen Exam Complete: Yes Emergency Medical Condition: Yes Medical Record Reviewed: Yes Interpretation(s) Twelve-lead EKG was reviewed by me. Normal sinus rhythm, normal axis, tachycardia, right bundle branch block. Heart rate of 111 bpm. Differential Diagnosis CHF exacerbation, COPD exacerbation, pneumonia, ACS, non-STEMI Narrative Course 2:34 PM patient was given 2 DuoNeb labs, IV Solu-Medrol, IV Lasix. Blood gas showed hypoxia but otherwise normal pH. White count is 18,000 and chest x-ray shows left lower lobe infiltrate with some effusion. I have ordered IV Rocephin and azithromycin. Troponin is negative. BNP is pending. Patient will need to be admitted. Awaiting for the hospitalist to call back. Critical Care Narrative Aggregate critical care time was 30 minutes. Time to perform other separately billable procedures was not included in the critical care time. My time did not include minutes spent treating any other patients simultaneously or on activities that did not directly contribute to the patient's treatment. The services I provided to this patient were to treat and/or prevent clinically significant deterioration that could result in: Respiratory distress, hypoxia, pneumonia, chest pain I provided critical care services requiring my management, as noted below: Chart data review, documentation time, medication orders and management, vital sign assessments/reviewing monitor data, ordering and reviewing lab tests, ordering and interpreting/reviewing x-rays and diagnostic studies, care of the patient and discussion of the patient with the admitting physicians. Procedures EKG Prior to Arrival: Yes Diagnosis Primary Impression: Hypoxia Additional Impressions: Respiratory distress Pneumonia Qualified Code: J18.1 - Pneumonia of left lower lobe due to infectious organism Chest pain Qualified Code: R07.9 - Chest pain, unspecified type Admitting Information Admitting Physician Requests: Admit Kelvin Mclain MD Oct 26, 2016 13:41
[2016-10-26] MEDS ORDERED: methylPREDNISolone SOD SUCC 125 MG/2 ML VIAL IVP ONE (13:45)
[2016-10-26] MEDS ORDERED: FUROSEMIDE 100 MG/10 ML VIAL IVP ONE (13:45)
[2016-10-26] MEDS ORDERED: SODIUM CHLORIDE 0.9% FLUSH 5 ML FLUSH IVF PRN (13:45)
[2016-10-26 13:50] LABS: BLOOD GAS BASE EXCESS 5.3 mmol/L (-2-2); BLOOD GAS CARBOXYHEMOGLOBIN 2.5 % (0-4); BLOOD GAS HCO3 30 mmol/L (22-26); BLOOD GAS METHEMOGLOBIN 2.1 % (0-2); BLOOD GAS O2 HGB SATURATION 89 % (90-100); BLOOD GAS OXYGEN CONTENT 14.9 Vol % (12.0-20.0); BLOOD GAS PCO2 52 mmHg (38-42); BLOOD GAS PO2 71 mmHG (61-120); BLOOD GAS TOTAL HGB 11.8 G/DL (12.0-16.0); CRITICAL VALUE YES; DRAW SITE RT RADIAL; FIO2 32 %; LITER FLOW 3 L/M; NUMBER OF ARTERIAL PUNCTURES 1; OXYGEN DEVICE NASAL CANNULA; STAT YES; TEMP CORR TO 98.6; ULNAR PULSE PRESENT
[2016-10-26] MEDS: RESP: ALBUTEROL 2.5 MG/IPRATROPIUM 0.5 MG NEB (SCH) INH (13:54)
[2016-10-26 14:02] LABS: AUTOMATED NEUTROPHIL # 9.7 TH/MM3 (1.8-7.7); BASOPHIL # 0.1 TH/MM3 (0-0.2); BASOPHIL % 0.5 % (0.0-2.0); EOSINOPHIL # 0.1 TH/MM3 (0-0.4); EOSINOPHIL % 0.4 % (0.0-4.0); HEMATOCRIT 36.1 % (39.0-51.0); LYMPH % 35.8 % (9.0-44.0); LYMPHOCYTE # 6.4 TH/MM3 (1.0-4.8); MEAN CELL VOLUME 79.3 FL (80.0-100.0); MEAN CORPUSCULAR HEMOGLOBIN 25.8 PG (27.0-34.0); MEAN CORPUSCULAR HGB CONC 32.5 % (32.0-36.0); MONO % 9.3 % (0.0-8.0); PLATELET COUNT 222 TH/MM3 (150-450); RED BLOOD COUNT 4.55 MIL/MM3 (4.50-5.90); RED CELL DISTRIBUTION WIDTH 15.9 % (11.6-17.2)
[2016-10-26 14:05] LABS: HEMO FLAGS AUTO DIFF
[2016-10-26 14:11] LABS: PROTHROMBIN TIME - PATIENT 10.7 SEC (9.8-11.6)
--- NOTE | 2016-10-26 14:16 | RADRPT ---
EXAM DATE/TIME: 10/26/2016 13:37 [facility] COMPARISON: CHEST SINGLE AP, May 16, 2016, 22:08. CHEST SINGLE AP, August 22, 2016, 6:11. CHEST SINGLE AP, September 12, 2016, 20:08. INDICATIONS : Left chest pain. MEDICAL HISTORY : Chronic obstructive pulmonary disease. SURGICAL HISTORY : None. ENCOUNTER: Initial ACUITY: 1 day PAIN SCORE: 8/10 LOCATION: Bilateral chest FINDINGS: 2 AP views of the chest demonstrate a normal-sized cardiac silhouette with calcification of the aorta . There is mild consolidation in the left lower lobe with slight blunting of the left costophrenic stern lcus. No pneumothorax is identified. No right lung abnormality is seen. Bones demonstrate no acute fi nding. There is chronic elevation of the right humeral head suggesting chronic rotator cuff tear. CONCLUSION: There is mild airspace consolidation in the left lower lobe with very small left pleural effusion. Bayron Huerta MD on October 26, 2016 at 14:13 Board Certified Radiologist. This report was verified electronically.
[2016-10-26 14:19] LABS: ANION GAP 8 MEQ/L (5-15); BICARBONATE 33.2 MEQ/L (21.0-32.0); BLOOD UREA NITROGEN 13 MG/DL (7-18); CHLORIDE 98 MEQ/L (98-107); GLOMERULAR FILTRATION RATE 66 ML/MIN (>89); POTASSIUM 3.5 MEQ/L (3.5-5.1); SODIUM (NA) 139 MEQ/L (136-145)
[2016-10-26] MEDS ORDERED: AZITHROMYCIN INJ 500 MG in SODIUM CHLOR 0.9% 250 ML INJ 250 ML IV ONE (14:30)
[2016-10-26] MEDS ORDERED: cefTRIAXone INJ 1,000 MG in SODIUM CHLORIDE 0.9% INJ 100 ML IV ONE (14:30)
[2016-10-26 14:51] LABS: BANDS 2 % (0-6); EOSINOPHILS 1 % (0-4); NEUTROPHIL # MANUAL DIFF 9.4 TH/MM3 (1.8-7.7); POLYS (SEG NEUTROPHILS) 50 % (16-70); WBC DIFF SAMPLE 100
[2016-10-26 14:52] LABS: PLATELET ESTIMATE SMEAR NORMAL (NORMAL); PLATELET MORPHOLOGY NORMAL (NORMAL); SCAN/DIFF FINAL DIFF MANUAL
[2016-10-26] MEDS ORDERED: MORPHINE SULFATE 4 MG/ML INJ IV PUSH ONE (15:45)
[2016-10-26] MEDS ORDERED: BENZONATATE 100 MG CAP PO PRN (16:15)
[2016-10-26] MEDS ORDERED: NALOXONE HCL 0.4 MG/ML AMP IV PRN (16:15)
[2016-10-26] MEDS ORDERED: SODIUM CHLORIDE 0.9% FLUSH 5 ML FLUSH FLUSH PRN (16:15)
[2016-10-26] MEDS ORDERED: ONDANSETRON HCL 4 MG/2 ML VIAL IVP PRN (16:15)
--- NOTE | 2016-10-26 16:39 | HHI.HP ---
[facility] [place] [facility] Admission Diagnosis hypoxia, pneumonia, respiratory distress, chest pain Diagnoses: Chief Complaint: chest pain, cough Travel History International Travel<30 Days: No Contact w/Intl Traveler <30 Da: No Traveled to Known Affected Are: No Sepsis Criteria SIRS Criteria (2 or more): Heart rate over 90, RR > 20 or PaCO2 < 32 Sepsis Criteria (SIRS+source): Infect source susp/known Criteria Outcome: Meets sepsis criteria History of Present Illness This is an 89-year-old male patient with past medical history which includes hypertension, COPD, hype lipidemia and 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 Patient reports he's been in his normal state of health until approximally 3 AM this morning when he woke up with left-sided chest pain which patient rated an 8 out of 10 at its worse and now rating a 5/ 10. Patient reports the chest pain does radiate from side to side is worse with cough. Does not seem to relate to activity. Chest pain is not associated with diaphoresis, shortness of breath nausea or vomiting. Patient also this morning at 3 AM began to have a cough productive of, "solid," white phlegm. Patient denies fever or chills. Patient also denies sick contacts. Patient reports his appetite is good and is hungry. Patient denies weight gain or weight loss. 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 Past Surgical History Right knee surgery ligament repair, tonsillectomy, penile implant Reported Medications Prednisone 20 Mg Tab 40 Mg PO DAILY take 2 pills daily for 3 days then one pill daily for 3 days then half a pill daily for 3 days Vitamin B-1 (Thiamine HCl) 100 Mg Tab 100 Mg PO DAILY Pantoprazole (Pantoprazole Sodium) 40 Mg Tab 40 Mg PO DAILY Prednisone 20 Mg Tab 20 Mg PO DIRECTED Take 40 MG twice daily x 3 days, then 40 MG once daily x 3 days, then 20 MG once daily x 3 days. Mucinex ER 12 HR (Guaifenesin) 600 Mg Yvrose 600 Mg PO BID Symbicort Inh (Budesonide/Formoterol Fumarate) 160-4.5 Mcg/Act Aero 2 Puff INH Q12HR Lasix (Furosemide) 20 Mg Tab 20 Mg PO DAILY Allergies: Coded Allergies: Bee Sting (Verified Allergy, Severe, Swelling, 10/26/16) Sulfa (Verified Allergy, Intermediate, HIVES, 10/26/16) Active Ordered Medications Current Medications Medications (Trade) Dose Ordered Sig/Jeison Route Start Time Stop Time Status Last Admin (NS Flush) 2 ml UNSCH PRN IVF 10/26/16 13:45 Family History Sister has a pacemaker Mother had CAD with [place] x 4 Social History Patient reports he drinks beer to occasionally not on a daily basis Denies tobacco use at this time quit smoking 30+ years ago Denies illicit drug use Physical Exam Vital Signs Vital Signs Date Time Temp Pulse Resp B/P Pulse Ox O2 Delivery O2 Flow Rate FiO2 10/26/16 15:16 120 24 123/64 96 Nasal Cannula 3 10/26/16 13:56 96 Nasal Cannula 5.00 10/26/16 13:43 95 Nasal Cannula 3 10/26/16 13:43 95 Nasal Cannula 3 10/26/16 13:32 98.4 112 30 128/68 85 10/26/16 13:21 97.8 120 36 124/71 82 Room Air Physical Exam GENERAL: This is a well-nourished, well-developed patient, coughing several times throughout evaluation. SKIN: Generalized leathery skin with scattered ecchymosis bilateral upper extremities HEAD: Atraumatic. Normocephalic. No temporal or scalp tenderness. EYES: Extraocular motions intact. No scleral icterus. No injection or drainage. CARDIOVASCULAR: Tachycardic without murmurs, gallops, or rubs. RESPIRATORY: Bilateral crackles present GASTROINTESTINAL: Abdomen soft, non-tender, nondistended. MUSCULOSKELETAL: Trace to 1+ bilateral lower extremity edema No calf tenderness. Negative Homans sign bilaterally. NEUROLOGICAL: Awake and alert. No focal deficits appreciated. Motor and sensory grossly within normal limits. 4-5 out of 5 muscle strength in all muscle groups. Normal speech. Laboratory Laboratory Tests Test 10/26/16 10/26/16 10/26/16 13:38 13:53 14:37 Blood Gas Puncture Site RT RADIAL Blood Gas Patient Temperature 98.6 Blood Gas HCO3 30 Blood Gas Base Excess 5.3 Blood Gas Oxygen Saturation 89 Arterial Blood pH 7.38 Arterial Blood Partial 52 Pressure CO2 Arterial Blood Partial 71 Pressure O2 Arterial Blood Oxygen Content 14.9 Arterial Blood 2.5 Carboxyhemoglobin Arterial Blood Methemoglobin 2.1 Blood Gas Hemoglobin 11.8 Oxygen Delivery Device NASAL CANNULA Blood Gas Liter Flow 3 Blood Gas Inspired Oxygen 32 White Blood Count 18.0 Red Blood Count 4.55 Hemoglobin 11.7 Hematocrit 36.1 Mean Corpuscular Volume 79.3 Mean Corpuscular Hemoglobin 25.8 Mean Corpuscular Hemoglobin 32.5 Concent Red Cell Distribution Width 15.9 Platelet Count 222 Mean Platelet Volume 8.4 Neutrophils (%) (Auto) 54.0 Lymphocytes (%) (Auto) 35.8 Monocytes (%) (Auto) 9.3 Eosinophils (%) (Auto) 0.4 Basophils (%) (Auto) 0.5 Neutrophils # (Auto) 9.7 Lymphocytes # (Auto) 6.4 Monocytes # (Auto) 1.7 Eosinophils # (Auto) 0.1 Basophils # (Auto) 0.1 CBC Comment AUTO DIFF Differential Total Cells 100 Counted Neutrophils % (Manual) 50 Band Neutrophils % 2 Lymphocytes % 40 Monocytes % 7 Eosinophils % 1 Neutrophils # (Manual) 9.4 Differential Comment FINAL DIFF MANUAL Platelet Estimate NORMAL Platelet Morphology Comment NORMAL Red Cell Morphology Comment NORMAL Prothrombin Time 10.7 Prothromb Time International 1.0 Ratio Sodium Level 139 Potassium Level 3.5 Chloride Level 98 Carbon Dioxide Level 33.2 Anion Gap 8 Blood Urea Nitrogen 13 Creatinine 1.06 Estimat Glomerular Filtration 66 Rate Random Glucose 115 Calcium Level 8.7 Magnesium Level 2.0 Troponin I LESS THAN 0.02 B-Type Natriuretic Peptide 34 Lactic Acid Level 0.7 Date/Time Procedure Status Source Growth 10/26/16 14:35 Aerobic Blood Culture Received Blood Peripheral Pending 10/26/16 14:35 Anaerobic Blood Culture Received Blood Peripheral Pending Result Diagram: 10/26/16 1353 10/26/16 1353 Imaging Last Impressions Chest X-Ray 10/26/16 7339 Signed Impressions: Service Date/Time: Wednesday, October 26, 2016 13:37 - CONCLUSION: There is mild airspace consolidation in the left lower lobe with very small left pleural effusion. 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 Patient reports he's been in his normal state of health until approximally 3 AM this morning when he woke up with left-sided chest pain which patient rates an 8 out of 10. Patient reports the chest pain does radiate from side to side is worse with cough. Does not seem to relate to activity. It is not associated with diaphoresis and shortness of breath nausea or vomiting. Patient also this morning at 3 AM began to have a cough productive of, "solid," white phlegm. Sepsis by criteria (tachycardia heart rate 120 tachypneic respiratory rate 36, white blood cell count 18) Hypoxemia pulse oxygenation 82 percent on room air Left lower lobe pneumonia Chest x-ray reviewed by myself as well as Dr. Cisneros reveals: airspace consolidation in the left lower lobe with very small left pleural effusion Rocephin and azithromycin IV Duonebs every 4 hours while awake and when necessary Sputum culture pending BC pending Chest pain Initial troponin less than 0.02 monitored serial troponins and check EKG in a.m. EKG reviewed by myself as well as Dr. Cisneros reveals sinus tachycardia with incomplete right bundle branch block which is similar to prior EKG August 2016, no acute ST changes identified Hypertension not on medication will monitor trend DVT prophylaxis Lovenox CODE statue DNR Discussed with ER provider, nursing and patient Written by Shani Fernando, acting as scribe for Dr. Cisneros on 10/26/16 at 16:39. All or portions of this note were transcribed by SUSANNA Larios. I, Dr. Tavon Cisneros personally performed the history, physical exam, and medical decision making; and confirmed the accuracy of the information in the transcribed note. Authenticated by Dr. Tavon Cisneros on 10/26/16 at 18:15. Physician Certification 2 Midnight Certification Type: Admission for Inpatient Services Order for Inpatient Services The services are ordered in accordance with Medicare regulations or non- Medicare payer requirements, as applicable. In the case of services not specified as inpatient-only, they are appropriately provided as inpatient services in accordance with the 2-midnight benchmark. Estimated LOS (days): 3 days is the estimated time the patient will need to remain in the hospital, assuming treatment plan goals are met and no additional complications. Post-Hospital Plan: Home Shani Fernando Oct 26, 2016 16:39 Tavon Cisneros MD Oct 26, 2016 18:15
[2016-10-26] MEDS: ENOXAPARIN SODIUM 40 MG/0.4 ML SYRINGE SQ SCH (16:50)
[2016-10-26] MEDS: RESP: ALBUTEROL 2.5 MG/IPRATROPIUM 0.5 MG NEB (SCH) NEB (19:19)
[2016-10-26] MEDS: BUDESONIDE-FORMOTEROL 160/4.5 MCG INHALER INH SCH (22:02)
[2016-10-26] MEDS: SODIUM CHLORIDE 0.9% FLUSH 5 ML FLUSH FLUSH SCH (22:02)
[2016-10-27] VITALS (10 sets, daily range): BP systolic 115–140; BP diastolic 56–74; PULSE 88–120; RESP 18–24; TEMP 96.2–98.3; O2SAT 92–96
[2016-10-27 03:36] LABS: AUTOMATED NEUTROPHIL # 5.5 TH/MM3 (1.8-7.7); BASOPHIL % 0.1 % (0.0-2.0); HEMATOCRIT 33.8 % (39.0-51.0); HEMO FLAGS DIFF FINAL; LYMPH % 26.9 % (9.0-44.0); LYMPHOCYTE # 2.1 TH/MM3 (1.0-4.8); MEAN CELL VOLUME 79.1 FL (80.0-100.0); MEAN CORPUSCULAR HGB CONC 32.8 % (32.0-36.0); MONO % 2.7 % (0.0-8.0); NEUT % 70.3 % (16.0-70.0); PLATELET COUNT 185 TH/MM3 (150-450); RED BLOOD COUNT 4.27 MIL/MM3 (4.50-5.90); RED CELL DISTRIBUTION WIDTH 15.9 % (11.6-17.2); WHITE BLOOD COUNT 7.8 TH/MM3 (4.0-11.0)
[2016-10-27 04:01] LABS: BICARBONATE 33.4 MEQ/L (21.0-32.0); POTASSIUM 3.8 MEQ/L (3.5-5.1)
[2016-10-27] MEDS: RESP: ALBUTEROL 2.5 MG/IPRATROPIUM 0.5 MG NEB (PRN) NEB (05:51)
[2016-10-27] MEDS: THIAMINE HCL 100 MG TAB PO SCH (08:16)
[2016-10-27] MEDS: FUROSEMIDE 20 MG TAB PO SCH (08:17)
[2016-10-27] MEDS: BUDESONIDE-FORMOTEROL 160/4.5 MCG INHALER INH SCH ×2 (08:17→21:05)
[2016-10-27] MEDS: PANTOPRAZOLE SOD 40 MG DELAYED RELEASE TAB PO SCH (08:17)
[2016-10-27] MEDS: SODIUM CHLORIDE 0.9% FLUSH 5 ML FLUSH FLUSH SCH ×2 (08:17→21:05)
[2016-10-27] MEDS: RESP: ALBUTEROL 2.5 MG/IPRATROPIUM 0.5 MG NEB (SCH) NEB ×4 (09:09→19:23)
--- NOTE | 2016-10-27 12:53 | HHI.PR ---
Subjective Remarks Follow-up pneumonia, sepsis, chest pain. Patient states that he feels a little better today. He denies chest pain. Still having some wheezing. Objective Vitals Vital Signs Date Time Temp Pulse Resp B/P Pulse Ox O2 Delivery O2 Flow Rate FiO2 10/27/16 09:12 92 Nasal Cannula 4.00 10/27/16 09:00 103 10/27/16 08:00 97.9 101 18 140/71 95 10/27/16 05:51 92 Nasal Cannula 4.00 10/27/16 04:00 97.3 88 18 119/68 95 10/27/16 00:00 96.2 98 18 135/74 96 10/26/16 21:00 98 10/26/16 20:00 105 22 108/57 97 Room Air 4 10/26/16 20:00 97.3 98 20 108/62 93 10/26/16 19:20 98 Nasal Cannula 3.00 10/26/16 15:16 120 24 123/64 96 Nasal Cannula 3 10/26/16 13:56 96 Nasal Cannula 5.00 10/26/16 13:43 95 Nasal Cannula 3 10/26/16 13:43 95 Nasal Cannula 3 10/26/16 13:32 98.4 112 30 128/68 85 10/26/16 13:21 97.8 120 36 124/71 82 Room Air I/O 10/26/16 10/26/16 10/26/16 10/27/16 10/27/16 10/27/16 07:00 15:00 23:00 07:00 15:00 23:00 Intake Total 0 ml Output Total 700 ml Balance -700 ml Intake Oral 0 ml Output Urine Total 700 ml # Bowel Movements 0 Result Diagram: 10/27/16 0306 10/27/16 0306 Imaging Last Impressions Chest X-Ray 10/26/16 1339 Signed Impressions: Service Date/Time: Wednesday, October 26, 2016 13:37 - CONCLUSION: There is mild airspace consolidation in the left lower lobe with very small left pleural effusion. Bayron Huerta MD Objective Remarks General: Elderly male in no acute distress. Sitting up in a chair. Heart: Regular rate and rhythm. No murmur. Lungs: Scattered wheeze. Crackles in the left base. Breathing is nonlabored. Abdomen: Soft, nontender, nondistended. Extremities: Trace bilateral lower extremity edema. Psych: Alert and oriented. Procedures None Urinary Catheter: No Vascular Central Line Catheter: No A/P Problem List: (1) Sepsis ICD Code: A41.9 Status: Acute (2) Pneumonia ICD Code: J18.9 Status: Acute (3) COPD exacerbation ICD Code: J44.1 Status: Acute (4) Hyperlipidemia ICD Code: E78.5 Status: Chronic (5) HTN (hypertension) ICD Code: I10 Status: Chronic (6) Chest pain ICD Code: R07.9 Status: Acute Assessment and Plan 1. Sepsis: Patient presented with tachycardia, tachypnea, leukocytosis. Source is pneumonia. Continue antibiotics. Hemodynamically stable. 2. Pneumonia: Chest x-ray shows consolidation in the left lower lobe. Continue azithromycin, Rocephin. Continue DuoNeb's. Follow cultures. 3. Chest pain: Serial cardiac enzymes are negative. Likely secondary to pneumonia. 4. Hypertension: Blood pressure is well controlled. 5. DVT prophylaxis: Lovenox. 6. CODE STATUS: DO NOT RESUSCITATE. Problem Qualifiers (1) Pneumonia: Qualified Code: J18.1 - Pneumonia of left lower lobe due to infectious organism (2) Chest pain: Qualified Code: R07.9 - Chest pain, unspecified type Tavon Cisneros MD Oct 27, 2016 12:53
[2016-10-27] MEDS: AZITHROMYCIN INJ 500 MG in SODIUM CHLOR 0.9% 250 ML INJ 250 ML IV SCH (15:00)
--- NOTE | 2016-10-27 15:22 | EKG ---
Date Performed: 10/27/2016 Time Performed: 05:51:28 PTAGE: 89 years EKG: Sinus tachycardia Normal ECG except for rate PREVIOUS TRACING : 10/26/2016 13.34 No significant change from previous tracing noted. DOCTOR: Erlin Vásquez Interpretating Date/Time 10/27/2016 15:21:50
--- NOTE | 2016-10-27 15:44 | EKG ---
Date Performed: 10/26/2016 Time Performed: 13:34:08 PTAGE: 89 years EKG: SINUS TACHYCARDIA INCOMPLETE RIGHT BUNDLE BRANCH BLOCK ABNORMAL RHYTHM ECG NO PREVIOUS TRACING DOCTOR: Erlin Vásquez Interpretating Date/Time 10/27/2016 15:42:24
[2016-10-27] MEDS: cefTRIAXone INJ 1,000 MG in SODIUM CHLORIDE 0.9% INJ 100 ML IV SCH (17:31)
[2016-10-27] MEDS: ENOXAPARIN SODIUM 40 MG/0.4 ML SYRINGE SQ SCH (17:32)
[2016-10-28] VITALS (8 sets, daily range): BP systolic 116–133; BP diastolic 61–71; PULSE 92–118; RESP 20–21; TEMP 97.2–98.8; O2SAT 90–97
[2016-10-28] MEDS: RESP: ALBUTEROL 2.5 MG/IPRATROPIUM 0.5 MG NEB (PRN) NEB ×2 (01:42→06:56)
[2016-10-28] MEDS: RESP: ALBUTEROL 2.5 MG/IPRATROPIUM 0.5 MG NEB (SCH) NEB ×4 (07:39→19:35)
[2016-10-28] MEDS: FUROSEMIDE 20 MG TAB PO SCH (07:50)
[2016-10-28] MEDS: THIAMINE HCL 100 MG TAB PO SCH (07:50)
[2016-10-28] MEDS: PANTOPRAZOLE SOD 40 MG DELAYED RELEASE TAB PO SCH (07:50)
[2016-10-28] MEDS: BUDESONIDE-FORMOTEROL 160/4.5 MCG INHALER INH SCH ×2 (07:51→20:53)
[2016-10-28] MEDS: SODIUM CHLORIDE 0.9% FLUSH 5 ML FLUSH FLUSH SCH ×2 (08:02→20:53)
--- NOTE | 2016-10-28 11:43 | HHI.PR ---
Subjective Remarks bringing up yellowish sputum Objective Vitals Vital Signs Date Time Temp Pulse Resp B/P Pulse Ox O2 Delivery O2 Flow Rate FiO2 10/28/16 11:00 92 Nasal Cannula 4.00 10/28/16 04:00 97.9 92 20 131/63 94 10/28/16 00:00 97.2 96 20 125/65 95 10/27/16 20:00 98.3 112 24 115/56 93 10/27/16 20:00 118 10/27/16 19:24 93 Nasal Cannula 4.00 10/27/16 16:00 97.8 110 18 119/68 94 10/27/16 12:00 97.9 120 18 118/74 93 I/O 10/27/16 10/27/16 10/27/16 10/28/16 10/28/16 10/28/16 07:00 15:00 23:00 07:00 15:00 23:00 Intake Total 480 ml 360 ml 220 ml Output Total 1000 ml Balance 480 ml 360 ml -780 ml Intake Oral 480 ml 360 ml 220 ml Output Urine Total 1000 ml # Voids 3 2 # Bowel Movements 0 0 Result Diagram: 10/27/16 0306 10/27/16 0306 Imaging Last Impressions Chest X-Ray 10/26/16 1339 Signed Impressions: Service Date/Time: Wednesday, October 26, 2016 13:37 - CONCLUSION: There is mild airspace consolidation in the left lower lobe with very small left pleural effusion. Bayron Huerta MD Objective Remarks anicteric lungs decreased breath sounds regular rhythm abdomen soft, nontender extremities no edema neuro exam- non focal Procedures None A/P Problem List: (1) Sepsis ICD Code: A41.9 Status: Acute (2) Pneumonia ICD Code: J18.9 Status: Acute (3) COPD exacerbation ICD Code: J44.1 Status: Acute (4) Hyperlipidemia ICD Code: E78.5 Status: Chronic (5) HTN (hypertension) ICD Code: I10 Status: Chronic (6) Chest pain ICD Code: R07.9 Status: Acute Assessment and Plan 89 years old male 1. Sepsis: Patient presented with tachycardia, tachypnea, leukocytosis. Source is pneumonia. Continue antibiotics. Hemodynamically stable. 2. Pneumonia: Chest x-ray shows consolidation in the left lower lobe. Continue azithromycin, Rocephin. Continue DuoNeb's. Follow cultures. 3. Chest pain: Serial cardiac enzymes are negative. Likely secondary to pneumonia. 4. Hypertension: Blood pressure is well controlled. 5. DVT prophylaxis: Lovenox. 6. CODE STATUS: DO NOT RESUSCITATE. Problem Qualifiers (1) Pneumonia: Qualified Code: J18.1 - Pneumonia of left lower lobe due to infectious organism (2) Chest pain: Qualified Code: R07.9 - Chest pain, unspecified type Gage Gorman MD Oct 28, 2016 11:43
[2016-10-28] MEDS: AZITHROMYCIN INJ 500 MG in SODIUM CHLOR 0.9% 250 ML INJ 250 ML IV SCH (15:00)
[2016-10-28] MEDS: ENOXAPARIN SODIUM 40 MG/0.4 ML SYRINGE SQ SCH (17:05)
[2016-10-28] MEDS: cefTRIAXone INJ 1,000 MG in SODIUM CHLORIDE 0.9% INJ 100 ML IV SCH (17:06)
[2016-10-29] VITALS (8 sets, daily range): BP systolic 119–152; BP diastolic 57–90; PULSE 102–119; RESP 16–21; TEMP 98.3–99.3; O2SAT 91–99
[2016-10-29] MEDS: RESP: ALBUTEROL 2.5 MG/IPRATROPIUM 0.5 MG NEB (SCH) NEB ×4 (08:26→19:07)
[2016-10-29] MEDS: BUDESONIDE-FORMOTEROL 160/4.5 MCG INHALER INH SCH ×2 (08:41→20:29)
[2016-10-29] MEDS: PANTOPRAZOLE SOD 40 MG DELAYED RELEASE TAB PO SCH (08:42)
[2016-10-29] MEDS: THIAMINE HCL 100 MG TAB PO SCH (08:42)
[2016-10-29] MEDS: FUROSEMIDE 20 MG TAB PO SCH (08:42)
[2016-10-29] MEDS: SODIUM CHLORIDE 0.9% FLUSH 5 ML FLUSH FLUSH SCH ×2 (09:00→20:29)
--- NOTE | 2016-10-29 13:52 | HHI.PR ---
Subjective Remarks feeling better, po 100% coughing less Objective Vitals Vital Signs Date Time Temp Pulse Resp B/P Pulse Ox O2 Delivery O2 Flow Rate FiO2 10/29/16 12:13 98.8 119 20 152/84 94 10/29/16 08:34 98.3 104 21 149/90 96 10/29/16 08:28 99 Nasal Cannula 3.00 10/29/16 04:00 98.5 102 16 122/71 95 10/29/16 00:00 99.3 104 16 127/69 94 10/28/16 20:00 98.8 108 21 125/71 94 10/28/16 20:00 107 10/28/16 16:00 98.5 100 20 133/64 94 10/28/16 15:26 97 Nasal Cannula 4.00 I/O 10/28/16 10/28/16 10/28/16 10/29/16 10/29/16 10/29/16 07:00 15:00 23:00 07:00 15:00 23:00 Intake Total 220 ml 720 ml 800 ml 960 ml Output Total 1000 ml 950 ml 600 ml 1400 ml Balance -780 ml -230 ml 200 ml -440 ml Intake Oral 220 ml 720 ml 800 ml 960 ml Output Urine Total 1000 ml 950 ml 600 ml 1400 ml # Bowel Movements 0 0 0 Result Diagram: 10/27/16 0306 10/27/16 0306 Imaging Last Impressions Chest X-Ray 10/26/16 1339 Signed Impressions: Service Date/Time: Wednesday, October 26, 2016 13:37 - CONCLUSION: There is mild airspace consolidation in the left lower lobe with very small left pleural effusion. Bayron Huerta MD Objective Remarks anicteric lungs decreased breath sounds regular rhythm abdomen soft, nontender extremities no edema neuro exam- non focal Procedures None A/P Problem List: (1) Sepsis ICD Code: A41.9 Status: Acute (2) Pneumonia ICD Code: J18.9 Status: Acute (3) COPD exacerbation ICD Code: J44.1 Status: Acute (4) Hyperlipidemia ICD Code: E78.5 Status: Chronic (5) HTN (hypertension) ICD Code: I10 Status: Chronic (6) Chest pain ICD Code: R07.9 Status: Acute Assessment and Plan 89 years old male 1. Sepsis: ff cultures- pending. Patient presented with tachycardia, tachypnea, leukocytosis. Source is pneumonia. Continue antibiotics. Hemodynamically stable. 2. Pneumonia: Chest x-ray shows consolidation in the left lower lobe. Continue azithromycin, Rocephin. Continue DuoNeb's. Follow cultures. 3. Chest pain: Serial cardiac enzymes are negative. Likely secondary to pneumonia. 4. Hypertension: some elevated readings. start Cardizem 30 mg tid. will help in tachycardia 5. DVT prophylaxis: Lovenox. 6. CODE STATUS: DO NOT RESUSCITATE. PT consult CM DC planning Problem Qualifiers (1) Pneumonia: Qualified Code: J18.1 - Pneumonia of left lower lobe due to infectious organism (2) Chest pain: Qualified Code: R07.9 - Chest pain, unspecified type Gage Gorman MD Oct 29, 2016 13:52
[2016-10-29] MEDS: DILTIAZEM HCL 30 MG TAB PO SCH ×2 (14:00→17:40)
--- NOTE | 2016-10-29 14:39 | HHI.FF ---
Face to Face Verification Diagnosis: (1) COPD exacerbation (2) HTN (hypertension) (3) Sepsis Physical Therapy Order: Evaluate and Treat, Improve ambulation, Strength and gait training Occupational Therapy Order: Evaluate and Treat, Improve ADL Speech Therapy Order: To Improve: Cognitive skills Home Health Nursing Order: Medical education Signs/symptoms of disease process Oxygen administration education Medication education-adverse effect Nursing assessment with vital signs Home Health Aide Order: To Assist In: major assembly lineman and meal prep Gyroscopic Instrument Tester Order: To Evaluate: Support services I have seen patient Joe Ace on 10/29/16. My clinical findings support the need for the requested home health care services because: Ltd mobility - disease progression Patient has SOB Limited ability to care for self Need for psychosocial assistance I certify that my clinical findings support that this patient is homebound because: Hx COPD- exertion dyspnea/weakness Gage Gorman MD Oct 29, 2016 14:39
[2016-10-29] MEDS: AZITHROMYCIN INJ 500 MG in SODIUM CHLOR 0.9% 250 ML INJ 250 ML IV SCH (15:00)
[2016-10-29] MEDS: cefTRIAXone INJ 1,000 MG in SODIUM CHLORIDE 0.9% INJ 100 ML IV SCH (16:00)
[2016-10-29] MEDS: ENOXAPARIN SODIUM 40 MG/0.4 ML SYRINGE SQ SCH (16:12)
[2016-10-29] MEDS ORDERED: diphenhydrAMINE HCL 25 MG CAP PO ONE (22:00)
[2016-10-29] MEDS: ACETAMINOPHEN 325 MG TAB PO PRN (22:52)
[2016-10-30] VITALS (8 sets, daily range): BP systolic 107–144; BP diastolic 61–82; PULSE 81–112; RESP 17–22; TEMP 98.4–102.6; O2SAT 90–98
[2016-10-30] MEDS: RESP: ALBUTEROL 2.5 MG/IPRATROPIUM 0.5 MG NEB (PRN) NEB (02:10)
[2016-10-30] MEDS: RESP: ALBUTEROL 2.5 MG/IPRATROPIUM 0.5 MG NEB (SCH) NEB ×3 (08:08→15:55)
[2016-10-30] MEDS: BUDESONIDE-FORMOTEROL 160/4.5 MCG INHALER INH SCH ×2 (08:45→22:12)
[2016-10-30] MEDS: PANTOPRAZOLE SOD 40 MG DELAYED RELEASE TAB PO SCH (08:45)
[2016-10-30] MEDS: DILTIAZEM HCL 30 MG TAB PO SCH ×3 (08:46→16:34)
[2016-10-30] MEDS: THIAMINE HCL 100 MG TAB PO SCH (08:46)
[2016-10-30] MEDS: FUROSEMIDE 20 MG TAB PO SCH (08:46)
[2016-10-30] MEDS: SODIUM CHLORIDE 0.9% FLUSH 5 ML FLUSH FLUSH SCH ×2 (08:46→22:11)
[2016-10-30] MEDS: ACETAMINOPHEN 325 MG TAB PO PRN ×2 (12:31→22:11)
[2016-10-30] MEDS: AZITHROMYCIN INJ 500 MG in SODIUM CHLOR 0.9% 250 ML INJ 250 ML IV SCH (12:32)
--- NOTE | 2016-10-30 14:42 | HHI.PR ---
Subjective Remarks now complains of left foot pain- "cant't walk" denies any recent fall, no history of gout started last evening no fever or chills, breathing better Objective Vitals Vital Signs Date Time Temp Pulse Resp B/P Pulse Ox O2 Delivery O2 Flow Rate FiO2 10/30/16 08:12 99.1 104 22 132/74 90 10/30/16 08:09 92 Nasal Cannula 1.00 10/30/16 04:00 98.4 107 18 117/68 97 10/30/16 00:00 99.4 109 17 122/78 96 10/29/16 20:33 99.3 110 20 119/57 91 10/29/16 19:09 92 Nasal Cannula 4.00 10/29/16 16:08 99.2 106 20 128/73 94 I/O 10/29/16 10/29/16 10/29/16 10/30/16 10/30/16 10/30/16 07:00 15:00 23:00 07:00 15:00 23:00 Intake Total 960 ml 720 ml 240 ml 220 ml Output Total 1400 ml 600 ml 400 ml 500 ml Balance -440 ml 120 ml -160 ml -280 ml Intake Oral 960 ml 720 ml 240 ml 220 ml Output Urine Total 1400 ml 600 ml 400 ml 500 ml # Bowel Movements 0 Result Diagram: 10/27/16 0306 10/27/16 0306 Imaging Last Impressions Chest X-Ray 10/26/16 1339 Signed Impressions: Service Date/Time: Wednesday, October 26, 2016 13:37 - CONCLUSION: There is mild airspace consolidation in the left lower lobe with very small left pleural effusion. Bayron Huerta MD Objective Remarks anicteric lungs decreased breath sounds regular rhythm abdomen soft, nontender extremities no edema, left foot with erythema and swelling, warm to touch, limited range of motion, good pulses, unable to bear weight neuro exam- non focal Procedures None A/P Problem List: (1) Sepsis ICD Code: A41.9 Status: Acute (2) Pneumonia ICD Code: J18.9 Status: Acute (3) COPD exacerbation ICD Code: J44.1 Status: Acute (4) Hyperlipidemia ICD Code: E78.5 Status: Chronic (5) HTN (hypertension) ICD Code: I10 Status: Chronic (6) Chest pain ICD Code: R07.9 Status: Acute Assessment and Plan 89 years old male 1. Sepsis:- Staph. Hominis- ? contamininant 08/26. Sensitivity back- resistant to Rocephin. Patient presented with tachycardia, tachypnea, leukocytosis. Source is pneumonia. - clinically feeling better. DC current antibiotics. Hemodynamically stable. ID consult for antiibotic recommendation 2. Pneumonia: Chest x-ray shows consolidation in the left lower lobe. clinically feeling better. minimal cough on azithromycin, Rocephin. Continue DuoNeb's. 3. Left foot celluliti/swelling r/o tear. Denies any fall. check Xrays. proceed with MRI if foot xray negative for fracture Check CBC. 4. Hypertension: improved. Chest pain resolved. on Cardizem continue to adjust 5. DVT prophylaxis: Lovenox. 6. CODE STATUS: DO NOT RESUSCITATE. PT consult CM DC planning Problem Qualifiers (1) Pneumonia: Qualified Code: J18.1 - Pneumonia of left lower lobe due to infectious organism (2) Chest pain: Qualified Code: R07.9 - Chest pain, unspecified type Gage Gorman MD Oct 30, 2016 14:42
--- NOTE | 2016-10-30 16:04 | RADRPT ---
EXAM DATE/TIME: 10/30/2016 14:58 [facility] COMPARISON: No previous studies available for comparison. INDICATIONS : Inflammation and pain. MEDICAL HISTORY : Diabetes mellitus type II. Pneumonia, Hypoxia SURGICAL HISTORY : None. ENCOUNTER: Initial ACUITY: 2 days PAIN SCORE: 10/10 LOCATION: Left Foot FINDINGS: No fracture, subluxation or perceptible bone destruction. 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 CONCLUSION: No acute bony abnormality demonstrated. Bayron Aguilar MD on October 30, 2016 at 16:01 Board Certified Radiologist. This report was verified electronically.
[2016-10-30] MEDS: cefTRIAXone INJ 1,000 MG in SODIUM CHLORIDE 0.9% INJ 100 ML IV SCH (16:34)
[2016-10-30] MEDS: ENOXAPARIN SODIUM 40 MG/0.4 ML SYRINGE SQ SCH (16:34)
[2016-10-30 19:19] LABS: AUTOMATED NEUTROPHIL # 7.6 TH/MM3 (1.8-7.7); BASOPHIL # 0.1 TH/MM3 (0-0.2); BASOPHIL % 0.8 % (0.0-2.0); EOSINOPHIL # 0.5 TH/MM3 (0-0.4); EOSINOPHIL % 3.2 % (0.0-4.0); LYMPH % 36.7 % (9.0-44.0); LYMPHOCYTE # 5.5 TH/MM3 (1.0-4.8); MEAN CELL VOLUME 79.5 FL (80.0-100.0); MEAN CORPUSCULAR HEMOGLOBIN 25.2 PG (27.0-34.0); MEAN CORPUSCULAR HGB CONC 31.7 % (32.0-36.0); MONO % 8.9 % (0.0-8.0); NEUT % 50.4 % (16.0-70.0); PLATELET COUNT 239 TH/MM3 (150-450); RED BLOOD COUNT 4.27 MIL/MM3 (4.50-5.90); RED CELL DISTRIBUTION WIDTH 15.6 % (11.6-17.2)
[2016-10-30 19:34] LABS: HEMO FLAGS AUTO DIFF
[2016-10-30 20:32] LABS: ALKALINE PHOSPHATASE 67 U/L (45-117); ALT (GPT) 11 U/L (12-78); ANION GAP 6 MEQ/L (5-15); AST (GOT) 5 U/L (15-37); BICARBONATE 34.5 MEQ/L (21.0-32.0); BLOOD UREA NITROGEN 19 MG/DL (7-18); CHLORIDE 97 MEQ/L (98-107); GLOMERULAR FILTRATION RATE 62 ML/MIN (>89); POTASSIUM 5.1 MEQ/L (3.5-5.1); SODIUM (NA) 137 MEQ/L (136-145); TOTAL BILIRUBIN ADULT 0.3 MG/DL (0.2-1.0); URIC ACID 4.1 MG/DL (2.6-7.2)
[2016-10-30 20:36] LABS: BANDS 1 % (0-6); EOSINOPHILS 3 % (0-4); NEUTROPHIL # MANUAL DIFF 8.3 TH/MM3 (1.8-7.7); POLYS (SEG NEUTROPHILS) 54 % (16-70); WBC DIFF SAMPLE 100
[2016-10-30 20:37] LABS: PLATELET ESTIMATE SMEAR NORMAL (NORMAL); PLATELET MORPHOLOGY NORMAL (NORMAL); SCAN/DIFF FINAL DIFF MANUAL
[2016-10-30] MEDS: diphenhydrAMINE HCL 25 MG CAP PO PRN (22:11)
[2016-10-31] VITALS (9 sets, daily range): BP systolic 106–131; BP diastolic 58–76; PULSE 88–113; RESP 18–22; TEMP 97.6–100.3; O2SAT 90–95
[2016-10-31] MEDS: RESP: ALBUTEROL 2.5 MG/IPRATROPIUM 0.5 MG NEB (PRN) NEB ×2 (00:22→18:46)
[2016-10-31] MEDS: THIAMINE HCL 100 MG TAB PO SCH (07:59)
[2016-10-31] MEDS: PANTOPRAZOLE SOD 40 MG DELAYED RELEASE TAB PO SCH (07:59)
[2016-10-31] MEDS: DILTIAZEM HCL 30 MG TAB PO SCH ×3 (07:59→18:00)
[2016-10-31] MEDS: FUROSEMIDE 20 MG TAB PO SCH (07:59)
[2016-10-31] MEDS: SODIUM CHLORIDE 0.9% FLUSH 5 ML FLUSH FLUSH SCH ×2 (07:59→20:40)
[2016-10-31] MEDS: ACETAMINOPHEN 325 MG TAB PO PRN ×2 (07:59→18:00)
[2016-10-31] MEDS: BUDESONIDE-FORMOTEROL 160/4.5 MCG INHALER INH SCH ×2 (08:01→20:40)
[2016-10-31] MEDS ORDERED: GADODIAMIDE PF 287 MG/ML 20 ML VIAL (for RAD MRI) IV ONE (08:53)
--- NOTE | 2016-10-31 09:38 | RADRPT ---
EXAM DATE/TIME: 10/31/2016 08:20 [facility] COMPARISON: FOOT LEFT COMPLETE ([id number]), October 30, 2016, 14:58. INDICATIONS : Edema. Pain, redness, and swelling to left foot. CONTRAST: 16 cc Omniscan (gadodiamide) IV MEDICAL HISTORY : Chronic obstructive pulmonary disease. Hypertension. Hypercholesterolemia. Borderline diabetes. SURGICAL HISTORY : Tonsillectomy. Arthroscopy. Penile implant. ENCOUNTER: Subsequent ACUITY: 4-6 days PAIN SCORE: 3/10 LOCATION: Left lower extremity. TECHNIQUE: Multiplanar, multisequence MRI examination was performed without contrast and after the intravenous a dministration of gadolinium. FINDINGS: BONE/CARTILAGE: There is increased signal on the T2-weighted images and low signal T1 weighted images at the distal n avicular bone, the proximal medial cuneiform bone, the lateral cuboid bone and at the medial aspect o f the first metatarsal head. This is all likely secondary to chronic arthritic change. There is a mil d ankle joint effusion. TENDONS: All of the visualized tendons are intact. There is fluid seen around the flexor hallucis longus tendo n. MISCELLANEOUS: There is a 2.8 x 2.8 x 4.0 cm mass seen at the plantar aspect of the foot primarily centered between the third and fourth metatarsals. This lobulated mass extends in between the third and fourth metatar sals into the dorsal soft tissues. There are areas of low signal seen within this mass. Plantar apone urosis is intact. Sinus tarsi is within normal limits. There is mild edema in the subcutaneous tissu es. POST-CONTRAST: There are no abnormal areas of enhancement on the post-contrast images. CONCLUSION: 1. 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 2. Suspected chronic areas of edema/granulation within the bones of the midfoot and at the first meta tarsal head. 3. There is fluid seen around the flexor pollicis longus tendon which can be seen normally. Some degr ee of tendinitis cannot be excluded. Bayron Goldstein MD on October 31, 2016 at 9:26 Board Certified Radiologist. This report was verified electronically.
--- NOTE | 2016-10-31 09:56 | PD.ID.CON ---
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 with left-sided chest pain work-up He is on home O2 NC 2 L and not currently smoking He r/o AMI His CXR has mild airspace consolidation in the left lower lobe He was found to have leukocytosis of 18 K onpresentation He was initilally afebrile but later develpped fever of 102 His admission blood clx positivie for Staph capitis in 1/4 bottles Repeat blood clx all negative Sputum clx is P Pt is on abx Rx for CAP Pt co L foot pain and redness x 2 days MRI done today Review of Systems Except as stated in HPI: all other systems reviewed are Neg Past Family Social History Allergies: Coded Allergies: Bee Sting (Verified Allergy, Severe, Swelling, 10/26/16) Sulfa (Verified Allergy, Intermediate, HIVES, 10/26/16) Past Medical History hypertension, COPD, hype lipidemia and 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 Past Surgical History Right knee surgery ligament repair, tonsillectomy, penile implant Active Ordered Medications Medications where reviewed in EMR Antibiotics Include: azithro CFTX Family History CAD Social History Patient reports he drinks beer to occasionally not on a daily basis Denies tobacco use at this time quit smoking 30+ years ago Denies illicit drug use Physical Exam Vital Signs Vital Signs Date Time Temp Pulse Resp B/P Pulse Ox O2 Delivery O2 Flow Rate FiO2 10/31/16 08:00 100.3 97 20 131/76 93 10/31/16 04:00 98.8 95 20 114/72 91 10/31/16 04:00 Nasal Cannula 4.00 Humidified 10/31/16 00:24 90 Nasal Cannula 4.00 10/31/16 00:00 Nasal Cannula 4.00 Humidified 10/31/16 00:00 98.3 108 20 131/73 91 10/30/16 20:55 105 10/30/16 20:00 Nasal Cannula 4.00 Humidified 10/30/16 20:00 102.6 102 20 144/76 91 10/30/16 16:00 98.8 102 22 121/61 91 10/30/16 12:00 99.0 112 22 107/67 93 Physical Exam CONSTITUTIONAL/GENERAL: This is an adequately nourished patient, in no apparent distress. TUBES/LINES/DRAINS: SKIN: No jaundice, rashes, or lesions. Skin temperature appropriate. Not diaphoretic. HEAD: Atraumatic. Normocephalic. EYES: Pupils equal and round and reactive. Extraocular motions intact. No scleral icterus. No injection or drainage. Fundi not examined. ENT: Hearing grossly normal. Nose without bleeding or purulent drainage. Oral mucosae without visible erythema, exudates, masses, or lesions. Poor dentition NECK: Trachea midline. Supple, nontender. No palpable thyroid enlargement or nodularity. CARDIOVASCULAR: Regular rate and rhythm without murmurs, gallops, or rubs. No JVD. Peripheral pulses symmetric. RESPIRATORY/CHEST: Symmetric, unlabored respirations. Clear to auscultation. Breath sounds equal bilaterally. No wheezes, rales, or rhonchi. GASTROINTESTINAL: Abdomen soft, non-tender, nondistended. No hepato-splenomegaly , or palpable masses. No guarding. Bowel sounds present. GENITOURINARY: Without palpable bladder distension. MUSCULOSKELETAL: Extremities without clubbing, cyanosis,No joint tenderness or effusion noted. LYMPHATICS: No palpable cervical or supraclavicular adenopathy. L foot wo any open wounds. Ill defined edema up to L ankle and patchy erythema present Tender to palpation No areas of fluctuance ROM in anlke seem OK NEUROLOGICAL: Awake and alert. Motor and sensory grossly within normal limits. Follows commands. Nl speech Moves all extremities. PSYCHIATRIC: No obvious anxiety/depression. no apparent hallucinations or other psychotic thought process. Laboratory Laboratory Tests Test 10/30/16 19:08 White Blood Count 15.0 Red Blood Count 4.27 Hemoglobin 10.8 Hematocrit 34.0 Mean Corpuscular Volume 79.5 Mean Corpuscular Hemoglobin 25.2 Mean Corpuscular Hemoglobin 31.7 Concent Red Cell Distribution Width 15.6 Platelet Count 239 Mean Platelet Volume 7.9 Neutrophils (%) (Auto) 50.4 Lymphocytes (%) (Auto) 36.7 Monocytes (%) (Auto) 8.9 Eosinophils (%) (Auto) 3.2 Basophils (%) (Auto) 0.8 Neutrophils # (Auto) 7.6 Lymphocytes # (Auto) 5.5 Monocytes # (Auto) 1.3 Eosinophils # (Auto) 0.5 Basophils # (Auto) 0.1 CBC Comment AUTO DIFF Differential Total Cells 100 Counted Neutrophils % (Manual) 54 Band Neutrophils % 1 Lymphocytes % 36 Monocytes % 6 Eosinophils % 3 Neutrophils # (Manual) 8.3 Differential Comment FINAL DIFF MANUAL Platelet Estimate NORMAL Platelet Morphology Comment NORMAL Red Cell Morphology Comment NORMAL Sodium Level 137 Potassium Level 5.1 Chloride Level 97 Carbon Dioxide Level 34.5 Anion Gap 6 Blood Urea Nitrogen 19 Creatinine 1.11 Estimat Glomerular Filtration 62 Rate Random Glucose 169 Uric Acid 4.1 Calcium Level 8.2 Total Bilirubin 0.3 Aspartate Amino Transf 5 (AST/SGOT) Alanine Aminotransferase 11 (ALT/SGPT) Alkaline Phosphatase 67 Total Protein 6.1 Albumin 2.4 Date/Time Procedure Status Source Growth 10/31/16 08:00 Gram Stain Received Sputum Expectorated Sputum Pending 10/31/16 08:00 Sputum Culture Received Sputum Expectorated Sputum Pending 10/30/16 19:08 Aerobic Blood Culture Received Blood Peripheral Pending 10/30/16 19:08 Anaerobic Blood Culture Received Blood Peripheral Pending 10/26/16 14:35 Aerobic Blood Culture - Preliminary Resulted Blood Peripheral NO GROWTH IN 4 DAYS 10/26/16 14:35 Anaerobic Blood Culture - Preliminary Resulted Blood Peripheral NO GROWTH IN 4 DAYS 10/26/16 14:35 Aerobic Blood Culture - Final Resulted Blood Peripheral Staphylococcus Hominis-Hominis 10/26/16 14:35 Anaerobic Blood Culture - Preliminary Resulted Blood Peripheral NO GROWTH IN 4 DAYS Result Diagram: 10/30/16 1908 10/30/16 1908 Imaging Last Impressions Foot X-Ray 10/30/16 0000 Signed Impressions: Service Date/Time: Sunday, October 30, 2016 14:58 - CONCLUSION: No acute bony abnormality demonstrated. Bayron Aguilar MD Chest X-Ray 10/26/16 1339 Signed Impressions: Service Date/Time: Wednesday, October 26, 2016 13:37 - CONCLUSION: There is mild airspace consolidation in the left lower lobe with very small left pleural effusion. Bayron Huerta MD Assessment and Plan Assessment and Plan LLL PNA, CAP Low grade coag negative staph bacteremia - doubt clin significance Cellulitis L foot - MRI dw Dr Goldstein: pt has incidental hamngioma, no signs of infx cont CFTX cont joan carlisle for cellulitis Discussed Condition With Vita Nicole Alexandra A. MD Oct 31, 2016 09:56
[2016-10-31] MEDS ORDERED: Vancomycin Consult Pharmacy 1 EA IV SCH (12:30)
--- NOTE | 2016-10-31 12:53 | HHI.PR ---
Subjective Remarks breathing better foot pain persists Objective Vitals Vital Signs Date Time Temp Pulse Resp B/P Pulse Ox O2 Delivery O2 Flow Rate FiO2 10/31/16 12:00 97.6 101 18 109/64 92 10/31/16 10:05 93 Nasal Cannula 4.00 10/31/16 08:00 100.3 97 20 131/76 93 10/31/16 04:00 98.8 95 20 114/72 91 10/31/16 04:00 Nasal Cannula 4.00 Humidified 10/31/16 00:24 90 Nasal Cannula 4.00 10/31/16 00:00 Nasal Cannula 4.00 Humidified 10/31/16 00:00 98.3 108 20 131/73 91 10/30/16 20:55 105 10/30/16 20:00 Nasal Cannula 4.00 Humidified 10/30/16 20:00 102.6 102 20 144/76 91 10/30/16 16:00 98.8 102 22 121/61 91 I/O 10/30/16 10/30/16 10/30/16 10/31/16 10/31/16 10/31/16 07:00 15:00 23:00 07:00 15:00 23:00 Intake Total 220 ml 120 ml 280 ml Output Total 500 ml 350 ml 600 ml Balance -280 ml -230 ml -600 ml 280 ml Intake Oral 220 ml 120 ml 280 ml Output Urine Total 500 ml 350 ml 600 ml # Bowel Movements 0 Result Diagram: 10/30/168 10/30/16 1908 Imaging Last Impressions Foot X-Ray 10/30/16 0000 Signed Impressions: Service Date/Time: Sunday, October 30, 2016 14:58 - CONCLUSION: No acute bony abnormality demonstrated. Bayron Aguilar MD Chest X-Ray 10/26/169 Signed Impressions: Service Date/Time: Wednesday, October 26, 2016 13:37 - CONCLUSION: There is mild airspace consolidation in the left lower lobe with very small left pleural effusion. Bayron Huerta MD Last Impressions Foot X-Ray 10/30/16 0000 Signed Impressions: Service Date/Time: Sunday, October 30, 2016 14:58 - CONCLUSION: No acute bony abnormality demonstrated. Bayron Aguilar MD Chest X-Ray 10/26/16 276 Signed Impressions: Service Date/Time: Wednesday, October 26, 2016 13:37 - CONCLUSION: There is mild airspace consolidation in the left lower lobe with very small left pleural effusion. Bayron Huerta MD Objective Remarks anicteric lungs decreased breath sounds regular rhythm abdomen soft, nontender extremities no edema, left foot with erythema and swelling, warm to touch, limited range of motion, good pulses, unable to bear weight neuro exam- non focal Procedures None A/P Problem List: (1) Sepsis ICD Code: A41.9 Status: Acute (2) Pneumonia ICD Code: J18.9 Status: Acute (3) COPD exacerbation ICD Code: J44.1 Status: Acute (4) Hyperlipidemia ICD Code: E78.5 Status: Chronic (5) HTN (hypertension) ICD Code: I10 Status: Chronic (6) Chest pain ICD Code: R07.9 Status: Acute Assessment and Plan 89 years old male 1. Sepsis:- Staph. Hominis- ? contaminant 08/26. Sensitivity back- resistant to Rocephin. Patient presented with tachycardia, tachypnea, leukocytosis. Source is pneumonia. - clinically feeling better. Hemodynamically stable. ID ff 2. Pneumonia: Chest x-ray shows consolidation in the left lower lobe. clinically feeling better. minimal cough.on azithromycin, Rocephin. Continue DuoNeb's. 3. Acute Left foot cellulitis/swelling. = MRI findings.D/w ID and treat with antibiotics for cellulitis. CBC in am consult Podiatry for recommendation. No trauma. 4. Hypertension: improved. Chest pain resolved. on Cardizem continue to adjust 5. DVT prophylaxis: Lovenox. 6. CODE STATUS: DO NOT RESUSCITATE. PT consult CM DC planning Problem Qualifiers (1) Pneumonia: Qualified Code: J18.1 - Pneumonia of left lower lobe due to infectious organism (2) Chest pain: Qualified Code: R07.9 - Chest pain, unspecified type Gage Gorman MD Oct 31, 2016 12:53 Gage Gorman MD Oct 31, 2016 12:53
[2016-10-31] MEDS: VANCOMYCIN 1,000 MG/NS 250 ML IV SCH ×2 (14:05)
[2016-10-31] MEDS: AZITHROMYCIN INJ 500 MG in SODIUM CHLOR 0.9% 250 ML INJ 250 ML IV SCH (15:15)
--- NOTE | 2016-10-31 16:53 | PD.CONS ---
History of Present Illness Service Podiatry Consult Requested By Reason for Consult L foot swelling Primary Care Physician [facility] Diagnoses: History of Present Illness This is an 89-year-old male patient admitted for chest pain and states he has had about a 2-3 day history of redness/swelling to L foot with tenderness to midfoot area and dorsal forefoot. He denies trauma. 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 Past Surgical History Right knee surgery ligament repair, tonsillectomy, penile implant Active Ordered Medications Current Medications Medications (Trade) Dose Ordered Sig/Jeison Route Start Time Stop Time Status Last Admin (NS Flush) 2 ml UNSCH PRN FLUSH 10/26/16 16:15 10/27/16 17:32 (NS Flush) 2 ml BID FLUSH 10/26/16 21:00 10/31/16 07:59 (Tylenol) 650 mg Q4H PRN PO 10/26/16 16:15 10/31/16 07:59 (Zofran Inj) 4 mg Q6H PRN IVP 10/26/16 16:15 (Lovenox Inj) 40 mg Q24H SQ 10/26/16 17:00 10/30/16 16:34 Naloxone HCl 0.4 mg 0.4 mg UNSCH PRN IV 10/26/16 16:15 Azithromycin 500 mg/Sodium Chloride 250 ml @ 250 mls/hr Q24H IV 10/27/16 15:00 10/31/16 15:15 (Rocephin Inj/NS Inj) 100 ml @ 200 mls/hr Q24H IV 10/27/16 16:00 10/30/16 16:34 (Tessalon) 200 mg TID PRN PO 10/26/16 16:15 10/30/16 22:11 (Symbicort 160-4.5 Inh) 2 puff Q12HR INH 10/26/16 21:00 10/31/16 08:01 (Lasix) 20 mg DAILY PO 10/27/16 09:00 10/31/16 07:59 (Protonix) 40 mg DAILY PO 10/27/16 09:00 10/31/16 07:59 (Vitamin B1) 100 mg DAILY PO 10/27/16 09:00 10/31/16 07:59 (Cardizem) 30 mg TID PO 10/29/16 14:00 10/31/16 14:05 Diphenhydramine HCl 25 mg 25 mg HS PRN PO 10/30/16 22:00 10/30/16 22:11 Pharmacy Profile Note 0 ml @ 0 mls/hr UNSCH IV 10/31/16 12:30 (Vancomycin Inj/ NS 250 ml Inj) 250 ml @ 250 mls/hr Q24H IV 10/31/16 14:00 10/31/16 14:05 Miscellaneous Information SPECIFIC LAB TO BE ... ONCE ONCE XX 11/03/16 13:45 11/03/16 13:46 Family History Sister has a pacemaker Mother had CAD with [place] x 4 Social History Patient reports he drinks beer to occasionally not on a daily basis Denies tobacco use at this time quit smoking 30+ years ago Denies illicit drug use Physical Exam Vital Signs Vital Signs Date Time Temp Pulse Resp B/P Pulse Ox O2 Delivery O2 Flow Rate FiO2 10/31/16 16:00 98.4 88 18 107/61 95 10/31/16 12:00 97.6 101 18 109/64 92 10/31/16 10:05 93 Nasal Cannula 4.00 10/31/16 08:00 100.3 97 20 131/76 93 10/31/16 04:00 98.8 95 20 114/72 91 10/31/16 04:00 Nasal Cannula 4.00 Humidified 10/31/16 00:24 90 Nasal Cannula 4.00 10/31/16 00:00 Nasal Cannula 4.00 Humidified 10/31/16 00:00 98.3 108 20 131/73 91 10/30/16 20:55 105 10/30/16 20:00 Nasal Cannula 4.00 Humidified 10/30/16 20:00 102.6 102 20 144/76 91 Physical Exam palpable pedal pulses. warm skin temperature bilaterally. Pain seems to be to dorsal forefoot L, with obvious edema compared to contralateral foot and mild redness compared, as well. No open lesion noted. Laboratory Laboratory Tests Test 10/30/16 19:08 White Blood Count 15.0 Red Blood Count 4.27 Hemoglobin 10.8 Hematocrit 34.0 Mean Corpuscular Volume 79.5 Mean Corpuscular Hemoglobin 25.2 Mean Corpuscular Hemoglobin 31.7 Concent Red Cell Distribution Width 15.6 Platelet Count 239 Mean Platelet Volume 7.9 Neutrophils (%) (Auto) 50.4 Lymphocytes (%) (Auto) 36.7 Monocytes (%) (Auto) 8.9 Eosinophils (%) (Auto) 3.2 Basophils (%) (Auto) 0.8 Neutrophils # (Auto) 7.6 Lymphocytes # (Auto) 5.5 Monocytes # (Auto) 1.3 Eosinophils # (Auto) 0.5 Basophils # (Auto) 0.1 CBC Comment AUTO DIFF Differential Total Cells 100 Counted Neutrophils % (Manual) 54 Band Neutrophils % 1 Lymphocytes % 36 Monocytes % 6 Eosinophils % 3 Neutrophils # (Manual) 8.3 Differential Comment FINAL DIFF MANUAL Platelet Estimate NORMAL Platelet Morphology Comment NORMAL Red Cell Morphology Comment NORMAL Sodium Level 137 Potassium Level 5.1 Chloride Level 97 Carbon Dioxide Level 34.5 Anion Gap 6 Blood Urea Nitrogen 19 Creatinine 1.11 Estimat Glomerular Filtration 62 Rate Random Glucose 169 Uric Acid 4.1 Calcium Level 8.2 Total Bilirubin 0.3 Aspartate Amino Transf 5 (AST/SGOT) Alanine Aminotransferase 11 (ALT/SGPT) Alkaline Phosphatase 67 Total Protein 6.1 Albumin 2.4 Date/Time Procedure Status Source Growth 10/31/16 08:00 Gram Stain Received Sputum Expectorated Sputum Pending 10/31/16 08:00 Sputum Culture Received Sputum Expectorated Sputum Pending 10/30/16 19:08 Aerobic Blood Culture - Preliminary Resulted Blood Peripheral NO GROWTH IN 1 DAY 10/30/16 19:08 Anaerobic Blood Culture - Preliminary Resulted Blood Peripheral NO GROWTH IN 1 DAY Result Diagram: 10/30/16190710/30/16 190 Imaging Last Impressions Foot MRI 10/31/16 0000 Signed Impressions: Service Date/Time: Monday, October 31, 2016 08:20 - CONCLUSION: 1. 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 2. Suspected chronic areas of edema/granulation within the bones of the midfoot and at the first metatarsal head. 3. There is fluid seen around the flexor pollicis longus tendon which can be seen normally. Some degree of tendinitis cannot be excluded. Bayron Goldstein MD Foot X-Ray 10/30/16 0000 Signed Impressions: Service Date/Time: Sunday, October 30, 2016 14:58 - CONCLUSION: No acute bony abnormality demonstrated. Bayron Aguilra MD Chest X-Ray 10/26/16 1339 Signed Impressions: Service Date/Time: Wednesday, October 26, 2016 13:37 - CONCLUSION: There is mild airspace consolidation in the left lower lobe with very small left pleural effusion. Bayron Huerta MD Assessment and Plan Assessment and Plan L foot pain I suspect gout and uric acid is ordered. Recommend reduced activity and antiinflammatory per primary team for pain relief in the meantime. Surgical shoe ordered to assist with reducing motion and pain when ambulatory. Wear when walking to reduce pain. Kecia Cota DPM Oct 31, 2016 16:53
[2016-10-31] MEDS: cefTRIAXone INJ 1,000 MG in SODIUM CHLORIDE 0.9% INJ 100 ML IV SCH (18:00)
[2016-10-31] MEDS: ENOXAPARIN SODIUM 40 MG/0.4 ML SYRINGE SQ SCH (18:00)
[2016-11-01] VITALS (9 sets, daily range): BP systolic 116–137; BP diastolic 61–81; PULSE 85–104; RESP 16–18; TEMP 97.8–98.1; O2SAT 92–93
[2016-11-01] MEDS: RESP: ALBUTEROL 2.5 MG/IPRATROPIUM 0.5 MG NEB (PRN) NEB ×2 (06:03→15:54)
[2016-11-01] MEDS: SODIUM CHLORIDE 0.9% FLUSH 5 ML FLUSH FLUSH SCH ×2 (08:26→20:50)
[2016-11-01] MEDS: PANTOPRAZOLE SOD 40 MG DELAYED RELEASE TAB PO SCH (08:26)
[2016-11-01] MEDS: BUDESONIDE-FORMOTEROL 160/4.5 MCG INHALER INH SCH ×2 (08:26→20:47)
[2016-11-01] MEDS: FUROSEMIDE 20 MG TAB PO SCH (08:26)
[2016-11-01] MEDS: DILTIAZEM HCL 30 MG TAB PO SCH ×3 (08:26→17:06)
[2016-11-01] MEDS: THIAMINE HCL 100 MG TAB PO SCH (08:26)
[2016-11-01 08:27] LABS: BASOPHIL % 0.3 % (0.0-2.0); EOSINOPHIL # 0.6 TH/MM3 (0-0.4); EOSINOPHIL % 4.6 % (0.0-4.0); HEMATOCRIT 33.8 % (39.0-51.0); LYMPH % 41.9 % (9.0-44.0); LYMPHOCYTE # 5.6 TH/MM3 (1.0-4.8); MEAN CELL VOLUME 78.9 FL (80.0-100.0); MEAN CORPUSCULAR HEMOGLOBIN 25.3 PG (27.0-34.0); NEUT % 45.2 % (16.0-70.0); PLATELET COUNT 263 TH/MM3 (150-450); RED BLOOD COUNT 4.28 MIL/MM3 (4.50-5.90); WHITE BLOOD COUNT 13.4 TH/MM3 (4.0-11.0)
[2016-11-01] MEDS: ACETAMINOPHEN 325 MG TAB PO PRN ×2 (08:27→20:49)
[2016-11-01 08:53] LABS: HEMO FLAGS AUTO DIFF
[2016-11-01 10:39] LABS: BANDS 1 % (0-6); EOSINOPHILS 4 % (0-4); NEUTROPHIL # MANUAL DIFF 6.2 TH/MM3 (1.8-7.7); PLATELET ESTIMATE SMEAR NORMAL (NORMAL); PLATELET MORPHOLOGY NORMAL (NORMAL); POLYS (SEG NEUTROPHILS) 45 % (16-70); SCAN/DIFF FINAL DIFF MANUAL; WBC DIFF SAMPLE 100
--- NOTE | 2016-11-01 11:05 | HHI.PR ---
Subjective Remarks still with persistent left foot pain- unable to bear weight on it swelling persists but erythema improves minimal sputum Objective Vitals Vital Signs Date Time Temp Pulse Resp B/P Pulse Ox O2 Delivery O2 Flow Rate FiO2 11/01/16 09:50 93 Nasal Cannula 3.00 11/01/16 08:00 Nasal Cannula 4.00 Humidified 11/01/16 08:00 98.1 98 16 127/81 93 11/01/16 04:00 97.9 99 18 136/75 93 11/01/16 04:00 Nasal Cannula 3.00 Humidified 11/01/16 00:00 98.1 85 18 127/61 93 11/01/16 00:00 Nasal Cannula 3.00 Humidified 10/31/16 20:40 Nasal Cannula 4.00 10/31/16 20:00 98.5 98 22 106/58 90 10/31/16 18:32 113 10/31/16 16:00 98.4 88 18 107/61 95 10/31/16 12:00 97.6 101 18 109/64 92 I/O 10/31/16 10/31/16 10/31/16 11/01/16 11/01/16 11/01/16 07:00 15:00 23:00 07:00 15:00 23:00 Intake Total 280 ml 720 ml 120 ml 360 ml Output Total 700 ml 700 ml 650 ml Balance 280 ml 20 ml -580 ml -290 ml Intake Oral 280 ml 720 ml 120 ml 360 ml Output Urine Total 700 ml 700 ml 650 ml # Bowel Movements 0 0 0 1 Result Diagram: 11/01/16 0655 10/30/16 1908 Imaging Last Impressions Foot MRI 10/31/16 0000 Signed Impressions: Service Date/Time: Monday, October 31, 2016 08:20 - CONCLUSION: 1. 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 2. Suspected chronic areas of edema/granulation within the bones of the midfoot and at the first metatarsal head. 3. There is fluid seen around the flexor pollicis longus tendon which can be seen normally. Some degree of tendinitis cannot be excluded. Bayron Goldstein MD Foot X-Ray 10/30/16 0000 Signed Impressions: Service Date/Time: Sunday, October 30, 2016 14:58 - CONCLUSION: No acute bony abnormality demonstrated. Bayron Aguilar MD Chest X-Ray 10/26/16 1339 Signed Impressions: Service Date/Time: Wednesday, October 26, 2016 13:37 - CONCLUSION: There is mild airspace consolidation in the left lower lobe with very small left pleural effusion. Bayron Huerta MD Objective Remarks anicteric lungs decreased breath sounds regular rhythm abdomen soft, nontender extremities no edema, left foot with erythema and swelling, involving bimalleolar area warm to touch, limited range of motion, good pulses, unable to bear weight neuro exam- non focal Procedures None A/P Problem List: (1) Sepsis ICD Code: A41.9 Status: Acute (2) Pneumonia ICD Code: J18.9 Status: Acute (3) COPD exacerbation ICD Code: J44.1 Status: Acute (4) Hyperlipidemia ICD Code: E78.5 Status: Chronic (5) HTN (hypertension) ICD Code: I10 Status: Chronic (6) Chest pain ICD Code: R07.9 Status: Acute Assessment and Plan 89 years old male Sepsis from Pneumonia on CTX, zithromax Cellulitis left foot- tendinitis on MRI started on Vancomycin seen by Podiatry - suspects gout - trial of Colchicine x 2 doses. Hypertension: improved. Chest pain resolved. on Cardizem continue to adjust DVT prophylaxis: Lovenox. CODE STATUS: DO NOT RESUSCITATE. PT consult CM DC planning Problem Qualifiers (1) Pneumonia: Qualified Code: J18.1 - Pneumonia of left lower lobe due to infectious organism (2) Chest pain: Qualified Code: R07.9 - Chest pain, unspecified type Gage Gorman MD Nov 01, 2016 11:05 Gage Gorman MD Nov 01, 2016 11:05 Qualified Code: R07.9 - Chest pain, unspecified type Gage Gorman MD Nov 01, 2016 11:05
[2016-11-01] MEDS ORDERED: COLCHICINE 0.6 MG TAB PO ONE ×2 (12:00→13:00)
[2016-11-01] MEDS: VANCOMYCIN 1,000 MG/NS 250 ML IV SCH ×2 (12:54)
[2016-11-01] MEDS: AZITHROMYCIN INJ 500 MG in SODIUM CHLOR 0.9% 250 ML INJ 250 ML IV SCH (13:57)
[2016-11-01] MEDS: cefTRIAXone INJ 1,000 MG in SODIUM CHLORIDE 0.9% INJ 100 ML IV SCH (16:30)
[2016-11-01] MEDS: ENOXAPARIN SODIUM 40 MG/0.4 ML SYRINGE SQ SCH (17:06)
--- NOTE | 2016-11-01 20:39 | PD.POD ---
Subjective Podiatric Problems L foot redness/swelling Past Med/Surg/Social History Social History Smoking Status: Former Smoker Objective Vital Signs Vital Signs Date Time Temp Pulse Resp B/P Pulse Ox O2 Delivery O2 Flow Rate FiO2 11/01/16 16:00 98.1 91 16 116/67 93 11/01/16 12:00 97.8 101 16 137/67 92 11/01/16 09:50 93 Nasal Cannula 3.00 11/01/16 08:00 96 11/01/16 08:00 Nasal Cannula 4.00 Humidified 11/01/16 08:00 98.1 98 16 127/81 93 11/01/16 04:00 97.9 99 18 136/75 93 11/01/16 04:00 Nasal Cannula 3.00 Humidified 11/01/16 00:00 98.1 85 18 127/61 93 11/01/16 00:00 Nasal Cannula 3.00 Humidified 10/31/16 20:40 Nasal Cannula 4.00 Coded Allergies: Bee Sting (Verified Allergy, Severe, Swelling, 10/26/16) Sulfa (Verified Allergy, Intermediate, HIVES, 10/26/16) Medications and IVs Current Medications Medications (Trade) Dose Ordered Sig/Jeison Route Start Time Stop Time Status Last Admin (NS Flush) 2 ml UNSCH PRN FLUSH 10/26/16 16:15 10/27/16 17:32 (NS Flush) 2 ml BID FLUSH 10/26/16 21:00 11/01/16 08:26 (Tylenol) 650 mg Q4H PRN PO 10/26/16 16:15 11/01/16 08:27 (Zofran Inj) 4 mg Q6H PRN IVP 10/26/16 16:15 (Lovenox Inj) 40 mg Q24H SQ 10/26/16 17:00 11/01/16 17:06 Naloxone HCl 0.4 mg 0.4 mg UNSCH PRN IV 10/26/16 16:15 Azithromycin 500 mg/Sodium Chloride 250 ml @ 250 mls/hr Q24H IV 10/27/16 15:00 11/01/16 13:57 (Rocephin Inj/NS Inj) 100 ml @ 200 mls/hr Q24H IV 10/27/16 16:00 11/01/16 16:30 (Tessalon) 200 mg TID PRN PO 10/26/16 16:15 10/30/16 22:11 (Symbicort 160-4.5 Inh) 2 puff Q12HR INH 10/26/16 21:00 11/01/16 08:26 (Lasix) 20 mg DAILY PO 10/27/16 09:00 11/01/16 08:26 (Protonix) 40 mg DAILY PO 10/27/16 09:00 11/01/16 08:26 (Vitamin B1) 100 mg DAILY PO 10/27/16 09:00 11/01/16 08:26 (Cardizem) 30 mg TID PO 10/29/16 14:00 11/01/16 17:06 Diphenhydramine HCl 25 mg 25 mg HS PRN PO 10/30/16 22:00 10/30/16 22:11 Pharmacy Profile Note 0 ml @ 0 mls/hr UNSCH IV 10/31/16 12:30 (Vancomycin Inj/ NS 250 ml Inj) 250 ml @ 250 mls/hr Q24H IV 10/31/16 14:00 11/01/16 12:54 Miscellaneous Information SPECIFIC LAB TO BE VICENTE... ONCE ONCE XX 11/03/16 13:45 11/03/16 13:46 Other Results Laboratory Tests Test 10/30/16 10/31/16 11/01/16 19:08 21:45 06:55 Red Cell Morphology Comment NORMAL Sodium Level 137 MEQ/L Potassium Level 5.1 MEQ/L Chloride Level 97 MEQ/L Carbon Dioxide Level 34.5 MEQ/L Anion Gap 6 MEQ/L Blood Urea Nitrogen 19 MG/DL Creatinine 1.11 MG/DL Estimat Glomerular Filtration 62 ML/MIN Rate Random Glucose 169 MG/DL Calcium Level 8.2 MG/DL Total Bilirubin 0.3 MG/DL Aspartate Amino Transf 5 U/L (AST/SGOT) Alanine Aminotransferase 11 U/L (ALT/SGPT) Alkaline Phosphatase 67 U/L Total Protein 6.1 GM/DL Albumin 2.4 GM/DL Uric Acid 4.9 MG/DL White Blood Count 13.4 TH/MM3 Red Blood Count 4.28 MIL/MM3 Hemoglobin 10.8 GM/DL Hematocrit 33.8 % Mean Corpuscular Volume 78.9 FL Mean Corpuscular Hemoglobin 25.3 PG Mean Corpuscular Hemoglobin 32.0 % Concent Red Cell Distribution Width 16.0 % Platelet Count 263 TH/MM3 Mean Platelet Volume 8.3 FL Neutrophils (%) (Auto) 45.2 % Lymphocytes (%) (Auto) 41.9 % Monocytes (%) (Auto) 8.0 % Eosinophils (%) (Auto) 4.6 % Basophils (%) (Auto) 0.3 % Neutrophils # (Auto) 6.0 TH/MM3 Lymphocytes # (Auto) 5.6 TH/MM3 Monocytes # (Auto) 1.1 TH/MM3 Eosinophils # (Auto) 0.6 TH/MM3 Basophils # (Auto) 0.0 TH/MM3 CBC Comment AUTO DIFF Differential Total Cells 100 Counted Neutrophils % (Manual) 45 % Band Neutrophils % 1 % Lymphocytes % 41 % Monocytes % 9 % Eosinophils % 4 % Neutrophils # (Manual) 6.2 TH/MM3 Differential Comment FINAL DIFF MANUAL Platelet Estimate NORMAL Platelet Morphology Comment NORMAL Objective Remarks Last Impressions Foot MRI 10/31/16 0000 Signed Impressions: Service Date/Time: Monday, October 31, 2016 08:20 - CONCLUSION: 1. 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 2. Suspected chronic areas of edema/granulation within the bones of the midfoot and at the first metatarsal head. 3. There is fluid seen around the flexor pollicis longus tendon which can be seen normally. Some degree of tendinitis cannot be excluded. Bayron Goldstein MD Foot X-Ray 10/30/16 0000 Signed Impressions: Service Date/Time: Sunday, October 30, 2016 14:58 - CONCLUSION: No acute bony abnormality demonstrated. Bayron Aguilar MD Chest X-Ray 10/26/16 1339 Signed Impressions: Service Date/Time: Wednesday, October 26, 2016 13:37 - CONCLUSION: There is mild airspace consolidation in the left lower lobe with very small left pleural effusion. Bayron Huerta MD Assessment & Plan A/P Possible gout L foot Colchicine has improved pain Continue surgical shoe to immobilize. Follow up in clinic upon d/c in 2 weeks. Kecia Cota DPM Nov 01, 2016 20:38
[2016-11-01] MEDS: diphenhydrAMINE HCL 25 MG CAP PO PRN (20:50)
[2016-11-02] VITALS (9 sets, daily range): BP systolic 107–158; BP diastolic 56–93; PULSE 90–107; RESP 16–24; TEMP 97.2–98.3; O2SAT 92–98
[2016-11-02] MEDS: RESP: ALBUTEROL 2.5 MG/IPRATROPIUM 0.5 MG NEB (PRN) NEB ×2 (05:06→14:05)
[2016-11-02] MEDS: DILTIAZEM HCL 30 MG TAB PO SCH ×3 (08:11→17:17)
[2016-11-02] MEDS: PANTOPRAZOLE SOD 40 MG DELAYED RELEASE TAB PO SCH (08:11)
[2016-11-02] MEDS: FUROSEMIDE 20 MG TAB PO SCH (08:11)
[2016-11-02] MEDS: THIAMINE HCL 100 MG TAB PO SCH (08:11)
[2016-11-02] MEDS: BUDESONIDE-FORMOTEROL 160/4.5 MCG INHALER INH SCH ×2 (08:12→22:00)
[2016-11-02] MEDS: SODIUM CHLORIDE 0.9% FLUSH 5 ML FLUSH FLUSH SCH ×2 (08:12→21:59)
[2016-11-02] MEDS ORDERED: VANCOMYCIN INJ 1,250 MG in SODIUM CHLOR 0.9% 250 ML INJ 250 ML IV SCH (11:00)
--- NOTE | 2016-11-02 13:31 | HHI.PR ---
Subjective Remarks feeling better moving foot better Objective Vitals Vital Signs Date Time Temp Pulse Resp B/P Pulse Ox O2 Delivery O2 Flow Rate FiO2 11/02/16 12:19 97.7 100 20 152/88 94 11/02/16 08:30 98.0 98 20 132/93 94 11/02/16 08:00 Nasal Cannula 3.00 11/02/16 08:00 95 11/02/16 04:00 98.3 91 16 114/56 92 11/02/16 00:00 97.2 90 18 107/56 94 11/01/16 20:51 Nasal Cannula 4.00 Humidified 11/01/16 20:40 92 Nasal Cannula 3.00 11/01/16 20:00 98.1 104 18 135/65 93 11/01/16 19:42 103 11/01/16 16:00 98.1 91 16 116/67 93 I/O 11/01/16 11/01/16 11/01/16 11/02/16 11/02/16 11/02/16 07:00 15:00 23:00 07:00 15:00 23:00 Intake Total 360 ml 630 ml Output Total 650 ml 1000 ml Balance -290 ml -370 ml Intake Oral 360 ml 380 ml IV Total 250 ml Output Urine Total 650 ml 1000 ml # Bowel Movements 1 1 Result Diagram: 11/01/16 0655 10/30/16 1908 Imaging Last Impressions Foot MRI 10/31/16 0000 Signed Impressions: Service Date/Time: Monday, October 31, 2016 08:20 - CONCLUSION: 1. 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 2. Suspected chronic areas of edema/granulation within the bones of the midfoot and at the first metatarsal head. 3. There is fluid seen around the flexor pollicis longus tendon which can be seen normally. Some degree of tendinitis cannot be excluded. Bayron Goldstein MD Foot X-Ray 10/30/16 0000 Signed Impressions: Service Date/Time: Sunday, October 30, 2016 14:58 - CONCLUSION: No acute bony abnormality demonstrated. Bayron Aguilar MD Chest X-Ray 10/26/16 1339 Signed Impressions: Service Date/Time: Wednesday, October 26, 2016 13:37 - CONCLUSION: There is mild airspace consolidation in the left lower lobe with very small left pleural effusion. Bayron Huerta MD Objective Remarks anicteric lungs decreased breath sounds regular rhythm abdomen soft, nontender extremities no edema, left foot erythema improved, better range of motion and now able to bear weight and walked on it neuro exam- non focal Procedures None A/P Problem List: (1) Sepsis ICD Code: A41.9 Status: Acute (2) Pneumonia ICD Code: J18.9 Status: Acute (3) COPD exacerbation ICD Code: J44.1 Status: Acute (4) Hyperlipidemia ICD Code: E78.5 Status: Chronic (5) HTN (hypertension) ICD Code: I10 Status: Chronic (6) Chest pain ICD Code: R07.9 Status: Acute Assessment and Plan 89 years old male Sepsis from Pneumonia on CTX- change to po Levaquin DC zithromax- got 5 days Left foot pain- Gouty Attack MRI with incidental hemangioma improved with trial of colchicine. Appreciate Podiatry input- OP ff up in 2 weeks start on bid Hypertension: improved. Chest pain resolved. on Cardizem continue to adjust DVT prophylaxis: Lovenox. CODE STATUS: DO NOT RESUSCITATE. PT consult CM DC planning- will need [facility] Problem Qualifiers (1) Pneumonia: Qualified Code: J18.1 - Pneumonia of left lower lobe due to infectious organism (2) Chest pain: Qualified Code: R07.9 - Chest pain, unspecified type Gage Gorman MD Nov 02, 2016 13:31
--- NOTE | 2016-11-02 13:37 | HHI.FF ---
Face to Face Verification Diagnosis: (1) Pneumonia (2) Sepsis (3) COPD exacerbation (4) Gout Physical Therapy Order: Evaluate and Treat, Improve ambulation Home Health Nursing Order: Medical education Signs/symptoms of disease process Oxygen administration education Medication education-adverse effect I have seen patient Joe Ace on 11/02/16. My clinical findings support the need for the requested home health care services because: Ltd mobility - disease progression Patient has SOB Need for psychosocial assistance I certify that my clinical findings support that this patient is homebound because: Hx COPD- exertion dyspnea/weakness Need for psychosocial assistance Gage Gorman MD Nov 02, 2016 13:37
[2016-11-02] MEDS: COLCHICINE 0.6 MG TAB PO SCH ×2 (14:01→21:59)
[2016-11-02] MEDS: TIOTROPIUM BROMIDE 18 MCG INH INH SCH (14:02)
[2016-11-02] MEDS: LEVOFLOXACIN 500 MG TAB PO SCH (14:15)
[2016-11-02] MEDS: ENOXAPARIN SODIUM 40 MG/0.4 ML SYRINGE SQ SCH (17:17)
[2016-11-02] MEDS: cefTRIAXone INJ 1,000 MG in SODIUM CHLORIDE 0.9% INJ 100 ML IV SCH (17:17)
--- NOTE | 2016-11-02 17:17 | HHI.IDPN ---
Subjective Subjective Remarks better L foot pain less co pain and tenderness at 2-3 toes base podiatry saw the pt - gout Improbed with colchicin Antibiotics azithro CFTX vanco - stoppped Allergies: Coded Allergies: Bee Sting (Verified Allergy, Severe, Swelling, 10/26/16) Sulfa (Verified Allergy, Intermediate, HIVES, 10/26/16) Objective . Vital Signs Date Time Temp Pulse Resp B/P Pulse Ox O2 Delivery O2 Flow Rate FiO2 11/02/16 14:05 98 Nasal Cannula 4.00 11/02/16 12:19 97.7 100 20 152/88 94 11/02/16 08:30 98.0 98 20 132/93 94 11/02/16 08:00 Nasal Cannula 3.00 11/02/16 08:00 95 11/02/16 04:00 98.3 91 16 114/56 92 11/02/16 00:00 97.2 90 18 107/56 94 11/01/16 20:51 Nasal Cannula 4.00 Humidified 11/01/16 20:40 92 Nasal Cannula 3.00 11/01/16 20:00 98.1 104 18 135/65 93 11/01/16 19:42 103 11/01/16 11/01/16 11/02/16 15:00 23:00 07:00 Intake Total 630 ml Output Total 1000 ml Balance -370 ml Intake Oral 380 ml IV Total 250 ml Output Urine Total 1000 ml # Bowel Movements 1 . Laboratory Tests Test 11/01/16 06:55 White Blood Count 13.4 TH/MM3 Red Blood Count 4.28 MIL/MM3 Hemoglobin 10.8 GM/DL Hematocrit 33.8 % Mean Corpuscular Volume 78.9 FL Mean Corpuscular Hemoglobin 25.3 PG Mean Corpuscular Hemoglobin 32.0 % Concent Red Cell Distribution Width 16.0 % Platelet Count 263 TH/MM3 Mean Platelet Volume 8.3 FL Neutrophils (%) (Auto) 45.2 % Lymphocytes (%) (Auto) 41.9 % Monocytes (%) (Auto) 8.0 % Eosinophils (%) (Auto) 4.6 % Basophils (%) (Auto) 0.3 % Neutrophils # (Auto) 6.0 TH/MM3 Lymphocytes # (Auto) 5.6 TH/MM3 Monocytes # (Auto) 1.1 TH/MM3 Eosinophils # (Auto) 0.6 TH/MM3 Basophils # (Auto) 0.0 TH/MM3 CBC Comment AUTO DIFF Differential Total Cells 100 Counted Neutrophils % (Manual) 45 % Band Neutrophils % 1 % Lymphocytes % 41 % Monocytes % 9 % Eosinophils % 4 % Neutrophils # (Manual) 6.2 TH/MM3 Differential Comment FINAL DIFF MANUAL Platelet Estimate NORMAL Platelet Morphology Comment NORMAL Laboratory Tests Test 10/31/16 21:45 Uric Acid 4.9 MG/DL Microbiology Date/Time Procedure Status Source Growth 10/30/16 18:57 Aerobic Blood Culture - Preliminary Resulted Blood Peripheral NO GROWTH IN 3 DAYS 10/30/16 18:57 Anaerobic Blood Culture - Preliminary Resulted Blood Peripheral NO GROWTH IN 3 DAYS 10/30/16 19:08 Aerobic Blood Culture - Preliminary Resulted Blood Peripheral NO GROWTH IN 3 DAYS 10/30/16 19:08 Anaerobic Blood Culture - Preliminary Resulted Blood Peripheral NO GROWTH IN 3 DAYS 10/31/16 08:00 Gram Stain - Final Complete Sputum Expectorated Sputum 10/31/16 08:00 Sputum Culture - Final Complete Sputum Expectorated Sputum HEAVY GROWTH NORMAL RESPIRATORY SANDRO Imaging Last Impressions Foot MRI 10/31/16 0000 Signed Impressions: Service Date/Time: Monday, October 31, 2016 08:20 - CONCLUSION: 1. 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 2. Suspected chronic areas of edema/granulation within the bones of the midfoot and at the first metatarsal head. 3. There is fluid seen around the flexor pollicis longus tendon which can be seen normally. Some degree of tendinitis cannot be excluded. Bayron Goldstein MD Foot X-Ray 10/30/16 0000 Signed Impressions: Service Date/Time: Sunday, October 30, 2016 14:58 - CONCLUSION: No acute bony abnormality demonstrated. Bayron Aguilar MD Chest X-Ray 10/26/16 1339 Signed Impressions: Service Date/Time: Wednesday, October 26, 2016 13:37 - CONCLUSION: There is mild airspace consolidation in the left lower lobe with very small left pleural effusion. Bayron Huerta MD Physical Exam CONSTITUTIONAL/GENERAL: This is an adequately nourished patient, in no apparent distress. TUBES/LINES/DRAINS: SKIN: No jaundice, rashes, or lesions. Skin temperature appropriate. Not diaphoretic. CARDIOVASCULAR: Regular rate and rhythm without murmurs, gallops, or rubs. No JVD. Peripheral pulses symmetric. RESPIRATORY/CHEST: Symmetric, unlabored respirations. Scattered b/l wheezing to auscultation. Breath sounds equal bilaterally. GASTROINTESTINAL: Abdomen soft, non-tender, nondistended. No hepato-splenomegaly , or palpable masses. No guarding. Bowel sounds present. MUSCULOSKELETAL: Extremities without clubbing, cyanosis,No joint tenderness or effusion noted. LYMPHATICS: No palpable cervical or supraclavicular adenopathy. L foot wo any open wounds. Markedly improved edema and patchy erythema Mildly tender to palpation 2-3 toes base No areas of fluctuance ROM in anlke seem OK NEUROLOGICAL: Awake and alert. Motor and sensory grossly within normal limits. Follows commands. Nl speech Moves all extremities. Assessment & Plan Remarks LLL PNA, CAP - good response to treatemne - nl resp sandro in sputum clx Low grade coag negative staph bacteremia - doubt clin significance L foot gout, cellulitis less likely - MRI dw Dr Goldstein: pt has incidental hamngioma, no signs of infx complete 7 days of CFTX tomorrow OK to dc home will s/o please call if further questions Ivonne Bello MD Nov 02, 2016 17:17
[2016-11-02] MEDS: diphenhydrAMINE HCL 25 MG CAP PO PRN (21:59)
[2016-11-03 00:10] VITALS: BP 161/77; PULSE 84; RESP 20; TEMP 98.2; O2SAT 95
[2016-11-03 03:06] VITALS: PULSE 105
[2016-11-03 04:01] VITALS: BP 150/76; PULSE 91; RESP 20; TEMP 98.2; O2SAT 95
[2016-11-03] MEDS: RESP: ALBUTEROL 2.5 MG/IPRATROPIUM 0.5 MG NEB (PRN) NEB (07:22)
[2016-11-03 07:26] VITALS: O2SAT 96
[2016-11-03 08:00] VITALS: BP 171/89; PULSE 116; RESP 20; TEMP 98; O2SAT 96
[2016-11-03] MEDS: LEVOFLOXACIN 500 MG TAB PO SCH (08:53)
[2016-11-03] MEDS: DILTIAZEM HCL 30 MG TAB PO SCH ×2 (08:53→13:14)
[2016-11-03] MEDS: FUROSEMIDE 20 MG TAB PO SCH (08:53)
[2016-11-03] MEDS: COLCHICINE 0.6 MG TAB PO SCH (08:53)
[2016-11-03] MEDS: SODIUM CHLORIDE 0.9% FLUSH 5 ML FLUSH FLUSH SCH (08:53)
[2016-11-03] MEDS: THIAMINE HCL 100 MG TAB PO SCH (08:53)
[2016-11-03] MEDS: PANTOPRAZOLE SOD 40 MG DELAYED RELEASE TAB PO SCH (08:53)
[2016-11-03] MEDS: TIOTROPIUM BROMIDE 18 MCG INH INH SCH (08:53)
[2016-11-03] MEDS: BUDESONIDE-FORMOTEROL 160/4.5 MCG INHALER INH SCH (08:53)
--- NOTE | 2016-11-03 11:52 | HHI.PR ---
Subjective Remarks feeling much much better foot pain gone Objective Vitals Vital Signs Date Time Temp Pulse Resp B/P Pulse Ox O2 Delivery O2 Flow Rate FiO2 11/03/16 08:00 98.0 116 20 171/89 96 11/03/16 07:26 96 Nasal Cannula 11/03/16 04:01 98.2 91 20 150/76 95 11/03/16 03:06 105 11/03/16 00:10 98.2 84 20 161/77 95 11/02/16 22:00 94 Nasal Cannula 3.00 Humidified 11/02/16 20:30 98.0 107 24 158/79 92 11/02/16 18:07 95 Nasal Cannula 3.00 11/02/16 16:01 98.3 91 20 127/74 95 11/02/16 14:05 98 Nasal Cannula 4.00 11/02/16 12:19 97.7 100 20 152/88 94 I/O 11/02/16 11/02/16 11/02/16 11/03/16 11/03/16 11/03/16 07:00 15:00 23:00 07:00 15:00 23:00 Intake Total 720 ml 240 ml 240 ml Output Total 900 ml 600 ml 640 ml Balance -180 ml -360 ml -400 ml Intake Oral 720 ml 240 ml 240 ml Output Urine Total 900 ml 600 ml 640 ml # Bowel Movements 0 Result Diagram: 11/01/16 0655 10/30/16 1908 Imaging Last Impressions Foot MRI 10/31/16 0000 Signed Impressions: Service Date/Time: Monday, October 31, 2016 08:20 - CONCLUSION: 1. 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 2. Suspected chronic areas of edema/granulation within the bones of the midfoot and at the first metatarsal head. 3. There is fluid seen around the flexor pollicis longus tendon which can be seen normally. Some degree of tendinitis cannot be excluded. Bayron Goldstein MD Foot X-Ray 10/30/16 0000 Signed Impressions: Service Date/Time: Sunday, October 30, 2016 14:58 - CONCLUSION: No acute bony abnormality demonstrated. Bayron Aguilar MD Chest X-Ray 10/26/16 1339 Signed Impressions: Service Date/Time: Man, October 26, 2016 13:37 - CONCLUSION: There is mild airspace consolidation in the left lower lobe with very small left pleural effusion. Bayron Huerta MD Objective Remarks anicteric lungs decreased breath sounds, no rales, no wheezes regular rhythm abdomen soft, nontender extremities no edema, left foot erythema resolved, good harjinder of motion and now able to bear weight and walked on it neuro exam- non focal Procedures None A/P Problem List: (1) Sepsis ICD Code: A41.9 Status: Acute (2) Pneumonia ICD Code: J18.9 Status: Acute (3) COPD exacerbation ICD Code: J44.1 Status: Acute (4) Hyperlipidemia ICD Code: E78.5 Status: Chronic (5) HTN (hypertension) ICD Code: I10 Status: Chronic (6) Chest pain ICD Code: R07.9 Status: Acute Assessment and Plan 89 years old male Sepsis from Pneumonia S/P CTX and zithromax Left foot pain- Gouty Attack MRI with incidental hemangioma improved with trial of colchicine. Appreciate Podiatry input- OP ff up in 2 weeks on bid Hypertension: improved. Chest pain resolved. on Cardizem continue to adjust DVT prophylaxis: Lovenox. CODE STATUS: DO NOT RESUSCITATE. [facility] up with [facility] 2weeks Problem Qualifiers (1) Pneumonia: Qualified Code: J18.1 - Pneumonia of left lower lobe due to infectious organism (2) Chest pain: Qualified Code: R07.9 - Chest pain, unspecified type Gage Gorman MD Nov 03, 2016 11:52
[2016-11-03] MEDS ORDERED: SPIRCAP INH (11:54)
[2016-11-03] MEDS ORDERED: COLC1TAB15 PO (11:54)
[2016-11-03] MEDS ORDERED: DILT31TA PO (12:00)
--- NOTE | 2016-11-03 12:01 | HHI.DS ---
Discharge Summary Admission Date Oct 26, 2016 at 15:38 Discharge Date: Nov 03, 2016 Admitting Diagnosis hypoxia, pneumonia, respiratory distress, chest pain (1) Sepsis ICD Code: A41.9 Diagnosis: Principal (2) Pneumonia ICD Code: J18.9 Diagnosis: Principal (3) COPD exacerbation ICD Code: J44.1 Diagnosis: Secondary (4) Hyperlipidemia ICD Code: E78.5 Diagnosis: Secondary (5) HTN (hypertension) ICD Code: I10 (6) Chest pain ICD Code: R07.9 Diagnosis: Secondary Procedures None Brief History - From Admission This is an 89-year-old male patient with past medical history which includes hypertension, COPD, hype lipidemia and 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 Patient reports he's been in his normal state of health until approximally 3 AM this morning when he woke up with left-sided chest pain which patient rated an 8 out of 10 at its worse and now rating a 5/ 10. Patient reports the chest pain does radiate from side to side is worse with cough. Does not seem to relate to activity. Chest pain is not associated with diaphoresis, shortness of breath nausea or vomiting. Patient also this morning at 3 AM began to have a cough productive of, "solid," white phlegm. Patient denies fever or chills. Patient also denies sick contacts. Patient reports his appetite is good and is hungry. Patient denies weight gain or weight loss. CBC/BMP: 11/01/16 0655 10/30/16 1908 Significant Findings Laboratory Tests Test 11/01/16 06:55 White Blood Count 13.4 TH/MM3 (4.0-11.0) Red Blood Count 4.28 MIL/MM3 (4.50-5.90) Hemoglobin 10.8 GM/DL (13.0-17.0) Hematocrit 33.8 % (39.0-51.0) Mean Corpuscular Volume 78.9 FL (80.0-100.0) Mean Corpuscular Hemoglobin 25.3 PG (27.0-34.0) Eosinophils (%) (Auto) 4.6 % (0.0-4.0) Lymphocytes # (Auto) 5.6 TH/MM3 (1.0-4.8) Monocytes # (Auto) 1.1 TH/MM3 (0-0.9) Eosinophils # (Auto) 0.6 TH/MM3 (0-0.4) Monocytes % 9 % (0-8) Imaging Last Impressions Foot MRI 10/31/16 0000 Signed Impressions: Service Date/Time: Monday, October 31, 2016 08:20 - CONCLUSION: 1. 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 2. Suspected chronic areas of edema/granulation within the bones of the midfoot and at the first metatarsal head. 3. There is fluid seen around the flexor pollicis longus tendon which can be seen normally. Some degree of tendinitis cannot be excluded. Bayron Goldstein MD Foot X-Ray 10/30/16 0000 Signed Impressions: Service Date/Time: Sunday, October 30, 2016 14:58 - CONCLUSION: No acute bony abnormality demonstrated. Bayron Aguilar MD Chest X-Ray 10/26/16 1339 Signed Impressions: Service Date/Time: Wednesday, October 26, 2016 13:37 - CONCLUSION: There is mild airspace consolidation in the left lower lobe with very small left pleural effusion. Bayron Huerta MD PE at Discharge anicteric lungs decreased breath sounds, no rales, no wheezes regular rhythm abdomen soft, nontender extremities no edema, left foot erythema resolved, good harjinder of motion and now able to bear weight and walked on it neuro exam- non focal Pt update on day of discharge up and ambulatinfg around at baseline oace no foot pain- able to bear weigh 02 dependent Hospital Course 89 years old male Sepsis from Pneumonia S/P CTX and zithromax Left foot pain- Gouty Attack MRI with incidental hemangioma improved with trial of colchicine. Appreciate Podiatry input- OP ff up in 2 weeks on bid Hypertension: improved. Chest pain resolved. on Cardizem continue to adjust DVT prophylaxis: Lovenox. CODE STATUS: DO NOT RESUSCITATE. DC today [facility] FF up with [facility] in 2weeks Pt Condition on Discharge: Stable Discharge Disposition: Disch w/ Home Health Serv Discharge Time: <= 30 minutes Discharge Instructions DIET: Follow Instructions for: Heart Healthy Diet Speech Therapy-Diet Recommends: Regular Activities you can perform: Weight Bearing as Speedy Follow up Referrals: PCP Follow-up - 11/06/16 [facility] - 2 Weeks with Kecia Cota DPM New Medications: Colchicine (Colchicine) 0.6 Mg Tab 0.6 MG PO BID gout Days 14 TAB Diltiazem (Cardizem) 30 Mg Tab 30 MG PO TID HTN Days 30 TAB Tiotropium Inh (Spiriva Handihaler) 18 Mcg Cap 18 MCG INH DAILY COPD Days 30 CAP Continued Medications: Budesonide-Formoterol Inh (Symbicort Inh) 160-4.5 Mcg/Act Aero 2 PUFF INH Q12HR COPD #1 INHALER Furosemide (Lasix) 20 Mg Tab 20 MG PO DAILY #30 Ref 0 TAB Pantoprazole (Pantoprazole) 40 Mg Tab 40 MG PO DAILY Manage Heartburn #14 TAB Thiamine (Vitamin B-1) 100 Mg Tab 100 MG PO DAILY Alcohol Detox #30 TAB Gage Gorman MD Nov 03, 2016 12:01
[2016-11-05] MEDS ORDERED: PHARMACY ORDERED LAB XX ONE (10:45)
== END 2016-11-03 14:07 | disposition home health service (06) | DRG 871 ==
LOC: NEPE 13:18 → NEDA 15:38 → NEDH 19:39 → N04B 20:57
PROVIDERS: ADMIT Internal Medicine; ATTEND Internal Medicine
DX: A41.9 Sepsis, unspecified organism (principal); J44.0 Chronic obstructive pulmonary disease with (acute) lower respiratory infection; J18.9 Pneumonia, unspecified organism; Z99.81 Dependence on supplemental oxygen; J44.1 Chronic obstructive pulmonary disease with (acute) exacerbation; Z79.52 Long term (current) use of systemic steroids; M10.9 Gout, unspecified; I10 Essential (primary) hypertension; Z66 Do not resuscitate; E78.5 Hyperlipidemia, unspecified; R73.03 Prediabetes; R00.0 Tachycardia, unspecified; H91.90 Unspecified hearing loss, unspecified ear; Z85.828 Personal history of other malignant neoplasm of skin; Z96.0 Presence of urogenital implants; Z87.891 Personal history of nicotine dependence
CPT/HCPCS: 36600; 71010; 73630; 73720; 80048; 80053; 82805; 83605; 83735; 83880; 84484; 84550; 85007; 85025; 85027; 85610; 87040; 87070; 87077; 87186; 87205; 93005; 94640; 94664; 96365; 96367; 96375; A9579; J0456; J0696; J1650; J1940; J2270; J2930; J3370; J7050; L3260